=== PATIENT | female | born 2000 | race Caucasian/White ===

== ENCOUNTER 2023-04-11 10:54 | Emergency (ER) | payer MEDICAID, SELFPAY ==
--- NOTE | ~2023-04-11 | XR_ITS ---
EXAMINATION: XR CHEST CLINICAL INFORMATION: Cough. COMPARISON: None available. TECHNIQUE: 2 views of the chest were obtained. FINDINGS: No significant abnormality is noted involving the heart, lungs, mediastinum, bony thorax or soft tissues. XR/XR chest 2V IMPRESSION: No acute cardiopulmonary process.
--- NOTE | 2023-04-11 11:30 | ED_ITS ---
HPI - General Adult General Chief complaint: Upper Respiratory Symptoms Stated complaint: migraine/ cough Time Seen by Provider: 04/11/23 13:46 Source: patient Mode of arrival: ambulatory Limitations: no limitations History of Present Illness HPI narrative: Patient is a 22 year old assigned female at with a history of diabetes presenting to the emergency department today with a cough and congestion. Patient states that over the last 4 days she has felt generally unwell with a cough and congestion. Patient denies any dizziness, lightheadedness, abdominal pain, nausea, vomiting, fever, chills, blurry vision, double vision, loss of vision, chest pain, difficulty breathing, shortness of breath, back pain, night sweats, pain with urination, increased urinary frequency, increased urinary urgency, blood in her urine or stool, syncope or a near syncopal episode, recent trauma or falls, bowel incontinence, bladder incontinence, bowel retention, bladder retention, or any other complaints at this time. Onset (ago): day(s) (4) Severity: mild Severity scale (1-10): 2 Relieving factors: none Exacerbating factors: none Associated symptoms: cough Treatments prior to arrival: none Related Data Allergies Allergy/AdvReac Type Severity Reaction Status Date / Time acetaminophen [From Tylenol] Allergy Rash Verified 04/11/23 11:30 amoxicillin Allergy Anaphylaxis Verified 04/11/23 11:30 codeine Allergy Anaphylaxis Verified 04/11/23 11:30 Review of Systems Constitutional: Constitutional: Reports no additional constitutional complaints, Denies chills, Denies fever(s) and Denies night sweats Eyes: Eyes: Reports no additional eye complaints, Denies blurry vision, Denies change in vision, Denies diplopia, Denies eye discharge, Denies loss of vision and Denies eye pain ENT: Denies dizziness and Reports nasal congestion Cardiovascular: Cardiovascular: Reports no additional cardiovascular complaints, Denies chest pain, Denies lightheadedness, Denies Loss of Consciousness and Denies dyspnea Respiratory: Respiratory: Reports no additional respiratory complaints, Reports cough and Denies dyspnea Gastrointestinal: Gastrointestinal: Reports no additional gastrointestinal complaints, Denies abdominal pain, Denies melena, Denies hematochezia, Denies change in bowel habits and Denies change in stool character Genitourinary: Genitourinary: Denies hematuria, Denies urinary frequency, Denies dysuria, Denies urinary incontinence, Denies urinary hesitancy and Denies urinary urgency Musculoskeletal: Musculoskeletal: Reports no additional musculoskeletal complaints, Denies numbness and Denies tingling Neurologic: Denies dizziness, Denies loss of vision, Denies numbness and Denies tingling Psychiatric: Psychiatric: Reports no additional psychiatric complaints Endocrine: Endocrine: Reports no additional endocrine complaints Hematologic/Lymphatic: Hematologic/Lymphatic: Reports no additional hematologic/lymphatic complaints Allergic/Immunologic: Allergic/Immunologic: Reports no additional allergic/immunologic complaints PMFSH Past Medical History Attestation statement: The following information was validated with the patient. Source: old records reviewed and nursing notes reviewed Physical Exam ED Vital Signs: Vital Signs - 24 hr 04/11/23 11:31 Temperature 98.2 F Pulse Rate 108 H Respiratory Rate 18 Blood Pressure 168/115 H Pulse Oximetry 96 Oxygen Delivery Method Room Air BMI result Body Mass Index 46.0 Const General: cooperative, no acute distress, alert and awake Nutritional Appearance: well nourished Orientation/consciousness: patient oriented x3 Limitations: no limitations HENMT Head: Yes normal to inspection and Yes atraumatic Ears: hearing grossly normal bilaterally and external ears normal General nose exam: Normal external nose present, no nasal discharge noted and no epistaxis Face and sinus: Yes normal facial exam, No abrasion and No laceration Mouth: Normal oral and palatal mucosa present, no drooling and no muffled voice Eyes General: appearance normal, both eyes and all related structures Periorbital: periorbital findings normal Eyelids: Yes eyelids normal Conjunctivae: conjunctivae normal Pupils: Equal, round and reactive pupils present EOM: EOMs intact bilaterally Neck Neck: Yes normal visual inspection, Yes full ROM and Yes no lymphadenopathy Chest Chest palpation & inspection: normal inspection of the chest Resp Effort & Inspection: normal respiratory effort and able to speak in complete sentences GI Inspection: Yes normal to inspection Neuro General: patient oriented x3 and moves all extremities Cranial nerves: Yes Equal, round and reactive pupils present Cognition (Neuro): normal cognition Motor exam (neuro): 5/5 motor strength present throughout Sensory Exam: Normal double simultaneous stimulation for sensation Coordination: [id number] test normal Extrem General: Yes normal to inspection, Yes full ROM and Yes capillary refill normal Psych Appearance: grossly normal Mental Status: mental status grossly normal Affect: normal affect Attitude: cooperative Thought process: Normal thought process present Thought content: Normal thought content present Insight: Good insight present (Psych) Course Course Course Narrative: RME performed by Maribeth Kurtz PA-C. Patient is a 22 year old assigned female at presenting to the emergency department feeling generally unwell with congestion and migraines. Labs and swabs ordered. Patient placed back in the waiting room pending room availability and results. Medical Decision Making Medical Decision Making [facility] Narrative: Patient is a 22 year old assigned female at with a history of diabetes presenting to the emergency department today with congestion and a cough. Patient's physical exam was unremarkable. Patient's chest x-ray showed no acute process. Patient's COVID-19 swab was positive. Patient's strep and influenza swabs were negative. Patient eloped from the department before myself or any of the other emergency department providers could review or explain her physical exam findings, test results, and treatment plan or treatment options. Differential Diagnosis Differential Diagnoses: The differential diagnosis associated with the presentation includes COVID-19 URI Strep pharyngitis PNA Admission/Observation Consideration of admission/observation: Escalation of care including admission/observation considered Patient would have been admitted to the hospital had her work up had any findings where hospital admission was appropriate, her clinical presentation warranted hospital admission, and had she not eloped from the department. Lab Data [facility] Lab Attestation statement: I reviewed the patient's lab results. My interpretation of these studies and their corresponding values is that they are grossly normal with the exception of a positive COVID-19 test. Labs: Lab Results 04/11/23 04/11/23 04/11/23 Range/Units 12:00 12:00 12:00 COVID-19 (ARNOLDO) Positive A (Negative) COVID-19 Clin Com See Note Influenza Type A (BRENDON) Negative (Negative) Influenza Type B (BRENDON) Negative (Negative) Influenza A & B Note See Note S. pyogenes GrpA BRENDON Negative (Negative) Independent Interpretation I performed an independent interpretation of an: Plain X-Ray Interpretation: My interpretation is in agreement with the radiologist's impression of this imaging study. EXAMINATION: XR CHEST CLINICAL INFORMATION: Cough. COMPARISON: None available. TECHNIQUE: 2 views of the chest were obtained. FINDINGS: No significant abnormality is noted involving the heart, lungs, mediastinum, bony thorax or soft tissues. XR/XR chest 2V IMPRESSION: No acute cardiopulmonary process. Dictated By: Mark Lyon MD Signed By: Electronically signed by Mark Lyon MD 04/11/23 7103 Radiology Impression Discussion of test interpretation with radiology: I have reviewed the radiologist's reading. Chronic Conditions Patient?s care impacted by: Diabetes Discharge Plan Discharge Clinical Impression: COVID-19 Patient Disposition: Elopement Interventions: ED Discharge Assessment Last Done: 04/11/23 13:47 Print Language: Russian
[2023-04-11 11:31] VITALS: BP 168/115; PULSE 108; RESP 18; TEMP 36.8; O2SAT 96; BMI 46.0
[2023-04-11 12:15] LABS: IDNOW Serial# 08D9AD1C; Strep A Nucleic Acid Negative (Negative)
[2023-04-11 12:17] LABS: COVID-19 Test Positive (Negative); IDNOW Serial# 9DB6401D
[2023-04-11 12:21] LABS: IDNOW Serial# BCCEAD1C; Influenza A Negative (Negative); Influenza B2 Negative (Negative)
== END 2023-04-11 14:09 | disposition left against medical advice (07) ==
LOC: HO.ED 14:07
PROVIDERS: Physician Assistant Medical; Emergency Provider Emergency Medicine
DX: U07.1 COVID-19 (principal); G43.909 Migraine, unspecified, not intractable, without status migrainosus; R05.9 Cough, unspecified
CPT/HCPCS: 71046; 87502; 87635; 87651; 99282; 99283

== ENCOUNTER 2023-06-12 15:11 | Emergency (ER) | payer MEDICAID, SELFPAY ==
[2023-06-12 15:22] VITALS: BP 166/116; PULSE 107; RESP 18; TEMP 36.6; O2SAT 96; BMI 41.4
--- NOTE | 2023-06-12 15:23 | ED.ABDPAIN ---
HPI - Abdominal Pain General Chief Complaint: Abdominal Pain Stated Complaint: Abdominal pain Related Data Allergies Allergy/AdvReac Type Severity Reaction Status Date / Time amoxicillin Allergy Anaphylaxis Verified 06/12/23 15:22 codeine Allergy Anaphylaxis Verified 06/12/23 15:22 Penicillins Allergy Anaphylaxis Verified 06/12/23 15:22 [facility] Social History Social History Advance Directives: No Advance Directives Information Provided: Yes Physical Exam ED Vital Signs: BMI result Body Mass Index 41.4 Course Course Course Narrative: RME - 22 yo female with history of DM2 and history of recent vaginal yeast infection 2-3 weeks ago who presents to the ER for evaluation of intermittent RLQ pain for the last 3 days. Increased vaginal odor but no longer having discharge. Not sexually active. No N/V/D or fever at home. Increased urination due to glucose 300+ at home. Plan: labs, UA, pelvis U/S, pelvic exam Reevaluation(s) Reevaluation #1: patient eloped without completing treatment Medical Decision Making Lab Data 06/12/23 15:52 06/12/23 15:52 Labs: Lab Results 06/12/23 Range/Units 15:52 WBC 16.1 H (4.8-10.8) X10*3/uL RBC 5.28 (4.20-5.50) X10*6/uL Hgb 15.4 (12.0-16.0) g/dl Hct 45.2 (37.0-47.0) % MCV 85.6 (80.0-98.0) fL MCH 29.2 (27.0-33.0) pg MCHC 34.1 (31.0-35.0) g/dl RDW 12.5 (11.0-16.0) % Plt Count 271 (160-400) X10*3/uL MPV 9.4 (9.4-12.3) fL Immature Gran % (Auto) 0.6 H (0.0-0.4) % Neut % (Auto) 73.8 H (45-73) % Lymph % (Auto) 16.3 L (20-40) % [place] % (Auto) 6.7 (2-11) % Eos % (Auto) 2.1 (0-4) % Baso % (Auto) 0.5 (0-2) % Lymph # (Auto) 2.6 (1.2-4.9) X10*3/uL [place] # (Auto) 1.1 (0.1-1.2) X10*3/uL Eos # (Auto) 0.3 (0.0-0.4) X10*3/uL Baso # (Auto) 0.1 (0.0-0.2) X10*3/uL Abs Immat Gran (auto) 0.09 H (0.00-0.03) X10*3/uL Absolute Neuts (auto) 11.9 H (2.0-8.3) x10*3/uL Absolute Nucleated RBC 0.000 (0.0-0.012) X10*3/uL Nucleated RBC % (auto) 0.0 (0.0-0.2) /100WBC Sodium 140 (135-145) mmol/L Potassium 3.8 (3.3-5.1) mmol/L Chloride 108 (96-108) mmol/L Carbon Dioxide 20 L (22-29) mmol/L Anion Gap 16 (12-20) BUN 11 (9-16) mg/dL Creatinine 0.68 (0.5-1.4) mg/dL Estim Creat Clear Calc 129.2 Estimated GFR > 60 Random Glucose 218 H (60-115) mg/dL Calcium 8.9 (8.4-10.2) mg/dL Magnesium 1.9 (1.6-2.6) mg/dL Total Bilirubin 0.7 (0.0-1.0) mg/dL Direct Bilirubin 0.2 (0.0-0.5) mg/dL AST 19 (5-31) U/L ALT 20 (0-31) U/L Alkaline Phosphatase 72 (39-117) U/L Total Protein 7.2 (6.5-8.0) g/dL Albumin 3.7 (3.5-5.0) g/dL Urine Color Yellow Urine Appearance Clear Urine pH 6.0 (5.0-9.0) Ur Specific [place] 1.025 (1.005-1.025) Urine Protein Trace (Neg-Trace) mg/dL Urine Glucose (UA) >=1000 H (Negative) mg/dL Urine Ketones Trace (Negative) mg/dL Urine Blood Negative (Negative) Urine Nitrite Negative (Negative) Ur Leukocyte Esterase Negative (Negative) Urine RBC 0-2 (0-2) /HPF Urine WBC 0-5 (0-5) /HPF Ur Squamous Epith Cells 6-10 (0-2) /HPF Urine Bacteria None Seen (None Seen) Hyaline Casts 3-5 (0-2) /LPF Urine Test NEGATIVE (NEGATIVE) Discharge Plan Discharge Clinical Impression: Abdominal pain Patient Disposition: Left W/O Completing Treatment Discharge Date/Time: 06/12/23 17:28
[2023-06-12 16:27] LABS: Alanine Aminotransferase 20 U/L (0-31); Albumin Level 3.7 g/dL (3.5-5.0); Alkaline Phosphatase 72 U/L (39-117); Anion Gap 16 (12-20); Aspartate Amino Transferase 19 U/L (5-31); Bilirubin Direct 0.2 mg/dL (0.0-0.5); Bilirubin Total 0.7 mg/dL (0.0-1.0); Blood Urea Nitrogen 11 mg/dL (9-16); Calcium 8.9 mg/dL (8.4-10.2); Carbon Dioxide 20 mmol/L (22-29); Chloride 108 mmol/L (96-108); Creatinine Clr Calc Pharmacy 129.2; Estimated Glomerular Filt Rate > 60; Glucose Random 218 mg/dL (60-115); Magnesium 1.9 mg/dL (1.6-2.6); Potassium 3.8 mmol/L (3.3-5.1); Sodium 140 mmol/L (135-145); Total Protein 7.2 g/dL (6.5-8.0)
== END 2023-06-12 17:28 | disposition left against medical advice (07) ==
PROVIDERS: Physician Assistant; Emergency Provider Emergency Medicine Emergency Medical Services
DX: R10.31 Right lower quadrant pain (principal); E11.9 Type 2 diabetes mellitus without complications
CPT/HCPCS: 36415; 76856; 80048; 80076; 81001; 81003; 81025; 83735; 85025; 93975; 99282; 99284

== ENCOUNTER 2023-07-08 10:16 | Emergency (ER) | payer MEDICAID, SELFPAY ==
--- NOTE | ~2023-07-08 | XR_ITS ---
EXAMINATION: XR CHEST CLINICAL INFORMATION: Cough. COMPARISON: 04/11/2023 TECHNIQUE: 2 views of the chest were obtained. FINDINGS: The lungs are moderately expanded. No focal consolidation. No pleural effusion. Cardiac silhouette is unchanged. XR/XR chest 2V IMPRESSION: No acute abnormality.
[2023-07-08 10:25] VITALS: BP 176/119; PULSE 111; RESP 18; TEMP 36.8; O2SAT 98; BMI 43.7
[2023-07-08 11:02] LABS: IDNOW Serial# BCCEAD1C; Influenza A Negative (Negative); Influenza B2 Negative (Negative)
[2023-07-08 11:17] LABS: COVID-19 Test Negative (Negative); IDNOW Serial# 55D5AD1C
--- NOTE | 2023-07-08 11:19 | MHC.EDTECH ---
Pt came back for swabs and asked for blood sugar to be checked because she felt lightheaded. T/w checked and it was 185. SHOAIB [place] aware.
[2023-07-08 11:32] LABS: Glucose, Whole Blood 185 mg/dL (60-115)
[2023-07-08 11:41] LABS: IDNOW Serial# 08D9AD1C; Strep A Nucleic Acid Negative (Negative)
--- NOTE | 2023-07-08 12:10 | ED_ITS ---
HPI - General Adult General Chief complaint: General Medical Stated complaint: vomiting Time Seen by Provider: 07/08/23 12:10 Source: patient, RN notes reviewed and old records reviewed Mode of arrival: ambulatory Limitations: no limitations History of Present Illness HPI narrative: 22-year-old female with pmhx significant for T2DM presents to the ED today for evaluation of cough, fever, vomiting, and diarrhea x3 days. Last episode of vomiting was this morning. No hematemesis. Fever has been subjective. Cough has been constant, exacerbated with lying back, and without sputum production. States everyone in her home is sick with same symptoms. Denies TOURE, dizziness, neck pain, sore throat, sputum production, chest pain, shortness of breath, abdominal pain, dysuria, hematuria, vaginal discharge. Denies marijuana use. Denies chance of . Related Data Previous Rx's Medication Instructions Recorded benzonatate 100 mg capsule 100 mg PO TID PRN cough #20 caps 07/08/23 ondansetron 4 mg disintegrating 4 mg PO DAILY PRN nausea and 07/08/23 tablet vomiting 5 days #10 tabs Allergies Allergy/AdvReac Type Severity Reaction Status Date / Time acetaminophen Allergy Hives Verified 07/08/23 12:57 amoxicillin Allergy Anaphylaxis Verified 06/12/23 15:22 codeine Allergy Anaphylaxis Verified 06/12/23 15:22 Penicillins Allergy Anaphylaxis Verified 06/12/23 15:22 Review of Systems Review of Systems: Constitutional: No fever, chills, fatigue, night sweats, weight changes ENT/Mouth: No ear pain, hearing loss, nasal congestion, sinus pain, rhinorrhea, sore throat Eyes: No eye pain, swelling, redness, vision changes, discharge Cardio: No chest pain, palpitations, THOMSON, orthopnea, peripheral edema Pulm: No SOB, +cough, No sputum, wheezing, dyspnea, hemoptysis GI: +nausea, +vomiting, No hematemesis, abdominal pain, +diarrhea, No constipation, hematochezia, melena : No irregular bleeding, dysuria, frequency, urgency, hesitancy, hematuria, flank pain MSK: No back pain, neck pain, joint pain, myalgias Skin: No lesions, rashes Neuro: No weakness, numbness, paresthesias, LOC, dizziness, headache All other systems reviewed and are negative. [facility] Past Medical History Attestation statement: The following information was validated with the patient. Source: old records reviewed and nursing notes reviewed Social History Social History Advance Directives: No Advance Directives Information Provided: No Physical Exam ED Vital Signs: Vital Signs - 24 hr 07/08/23 14:41 Temperature 98.2 F Pulse Rate 87 Respiratory Rate 14 Blood Pressure 149/93 H Pulse Oximetry 100 Oxygen Delivery Method Room Air BMI result Body Mass Index 43.7 Vital signs initially notable for tachycardia and hypertension Const General: cooperative, no acute distress, alert and awake Orientation/consciousness: patient oriented x3 Limitations: no limitations HENMT Other: + posterior oropharynx without erythema or edema. No tonsillar exudates. Uvula midline. Controlling secretions and speaking in complete sentences. Head: Yes normal to inspection Ears: hearing grossly normal bilaterally, external ears normal, TM's normal bilaterally, EAC's normal and mastoids normal General nose exam: Normal external nose present Face and sinus: Yes sinuses nontender Eyes General: appearance normal, both eyes and all related structures Conjunctivae: conjunctivae normal Sclerae: sclerae normal Pupils: Equal, round and reactive pupils present Neck Neck: Yes normal visual inspection, Yes no lymphadenopathy and Yes no meningeal signs Resp Effort & Inspection: normal respiratory effort and able to speak in complete sentences Auscultation: clear to auscultation bilaterally and no wheezes Cardio Rate: regular rate Rhythm: regular rhythm Peripheral pulses: radial pulses present GI Other: Abdomen is soft, ND, nontender to palpation, no rebound tenderness or guarding. Normoactive BS throughout. Inspection: Yes normal to inspection General: Yes no CVA tenderness Back/Spine/Pelvis Back: no CVA tenderness Skin General skin exam: no rashes or lesions noted Neuro General: patient oriented x3, gait normal, moves all extremities and no meningeal signs Cranial nerves: Yes CN's II-XII intact bilaterally and Yes Equal, round and reactive pupils present Extrem General: Yes normal to inspection, Yes capillary refill normal and Yes no clubbing, cyanosis or edema Course Course Course Narrative: 1213-- serology negative for COVID, influenza, strep throat. POC glucose 185 > unlikely DKA. UA without infection or preg. 1443-- CXR negative for infection or pneumonia. Patient states her symptoms are somewhat improved with IV fluids and Zofran. Her vital signs are stable. She was initially hypertensive and tachycardic on arrival however this has normalized. She is tolerating crackers in the ED. No vomiting. I discussed unremarkable workup with patient. Her symptoms are consistent with an upper respiratory infection/ viral infection. I will send Zofran to her pharmacy to take as needed for nausea. I will also send Manjula Reynaga to her pharmacy for cough. Discussed strict return precautions. All questions answered at this time. Patient is agreeable disposition and stable for discharge. Medications Administered Discontinued Medications Generic Name Dose Route Start Last Admin Trade Name Freq PRN Reason Stop Dose Admin Sodium Chloride 1,000 mls @ 999 mls/hr 07/08/23 12:30 07/08/23 14:34 Ns IV 07/08/23 13:30 Infused .Q1H1M TOLU Infusion Ondansetron HCl 4 mg 07/08/23 12:20 07/08/23 13:00 Ondansetron Hcl 4 Mg/2 Ml Vial IVPUSH 07/08/23 12:21 4 mg ONCE ONE Administration Medical Decision Making Medical Decision Making [facility] Narrative: 22-year-old female pmhx significant for T2DM presents to the ED today with a complaint of cough, fever, vomiting, and diarrhea x3 days. Patient is nontoxic appearing, in NAD. Posterior oropharynx without erythema or edema. No tonsillar exudates. Uvula is midline. Controlling secretions. Speaking in complete sentences. Abd soft, NT/ND, no rebound or guarding. Clinical concern for URI, viral syndrome, pneumonia, gastroenteritis. Lower suspicion for strep throat, mono, DKA, appendicitis, cholecystitis. Serology obtained in triage. Plan for UA/ u preg and CXR. Differential Diagnosis Differential Diagnoses: The differential diagnosis associated with the presentation includes As above. Admission/Observation Not indicated. Lab Data [facility] Lab Attestation statement: I reviewed the patient's lab results. As above. Labs: Lab Results 07/08/23 07/08/23 07/08/23 Range/Units 10:30 11:13 11:16 POC Glucose 185 H (60-115) mg/dL Urine Color Urine Appearance Urine pH (5.0-9.0) Ur Specific [place] (1.005-1.025) Urine Protein (Neg-Trace) mg/dL Urine Glucose (UA) (Negative) mg/dL Urine Ketones (Negative) mg/dL Urine Blood (Negative) Urine Nitrite (Negative) Ur Leukocyte Esterase (Negative) Urine RBC (0-2) /HPF Urine WBC (0-5) /HPF Ur Squamous Epith Cells (0-2) /HPF Urine Bacteria (None Seen) Hyaline Casts (0-2) /LPF Urine Test (NEGATIVE) COVID-19 (ARNOLDO) Negative (Negative) COVID-19 Clin Com See Note Influenza Type A (BRENDON) Negative (Negative) Influenza Type B (BRENDON) Negative (Negative) Influenza A & B Note See Note S. pyogenes GrpA BRENDON Negative (Negative) 07/08/23 Range/Units 12:55 POC Glucose (60-115) mg/dL Urine Color Yellow Urine Appearance Cloudy Urine pH 6.0 (5.0-9.0) Ur Specific [place] >= 1.030 H (1.005-1.025) Urine Protein Negative (Neg-Trace) mg/dL Urine Glucose (UA) >=1000 H (Negative) mg/dL Urine Ketones Trace (Negative) mg/dL Urine Blood Negative (Negative) Urine Nitrite Negative (Negative) Ur Leukocyte Esterase Trace H (Negative) Urine RBC 0-2 (0-2) /HPF Urine WBC 6-10 H (0-5) /HPF Ur Squamous Epith Cells 11-20 (0-2) /HPF Urine Bacteria 1+ (None Seen) Hyaline Casts 0-2 (0-2) /LPF Urine Test NEGATIVE (NEGATIVE) COVID-19 (ARNOLDO) (Negative) COVID-19 Clin Com Influenza Type A (BRENDON) (Negative) Influenza Type B (BRENDON) (Negative) Influenza A & B Note S. pyogenes GrpA BRENDON (Negative) Independent Interpretation I performed an independent interpretation of an: Plain X-Ray Interpretation: CXR without infiltrate or consolidation, agree with radiologist's interpretation. Radiology Impression Discussion of test interpretation with radiology: I have reviewed the radiologist's reading. Radiologist Impression: EXAMINATION: XR CHEST CLINICAL INFORMATION: Cough. COMPARISON: 04/11/2023 TECHNIQUE: 2 views of the chest were obtained. FINDINGS: The lungs are moderately expanded. No focal consolidation. No pleural effusion. Cardiac silhouette is unchanged. XR/XR chest 2V IMPRESSION: No acute abnormality. External Record Review External record reviewed: Inpatient record Prescription Management I considered prescription management with: Pain Medication and Other (antiemetic) Chronic Conditions Patient?s care impacted by: Diabetes Critical Care Time Critical Care Time Critical Care Time: No Discharge Plan Discharge Clinical Impression: Upper respiratory infection Patient Disposition: Home, Self-Care Instructions: Upper Respiratory Infection (ED) Additional Instructions: You tested negative for COVID, flu, strep throat. Your urine was negative for infection and . Your chest x-ray did not show pneumonia or infection. You received a liter of IVF in the emergency department today. Your symptoms are consistent with an upper respiratory infection. You may take ibuprofen at home for body aches or fever. Zofran as an antiemetic that has been sent to pharmacy. Take this as needed for nausea/vomiting. Tessalon Perles have been sent to your pharmacy. Take this as needed for cough. Drink plenty of fluids. Follow-up with your primary care provider this week. Return to the emergency department with new or worsening symptoms. In case of emergency call 911 Prescriptions: New ondansetron 4 mg tablet,disintegrating 4 mg PO DAILY PRN (Reason: nausea and vomiting) 5 Days Qty: 10 0RF benzonatate 100 mg capsule 100 mg PO TID PRN (Reason: cough) Qty: 20 0RF Referrals: Physician,Unknown J [Primary Care Provider] - Stand Alone Forms: Work/School Release Interventions: ED Discharge Assessment Last Done: 07/08/23 15:17 Discharge Date/Time: 07/08/23 15:18
[2023-07-08] MEDS: 0.9 % Sodium Chloride 1,000 ML 999 ML IV (12:56)
[2023-07-08] MEDS: ondansetron HCL 4 MG/2 ML VIAL IVPUSH (13:00)
[2023-07-08 13:09] LABS: Appearance Urine Cloudy; Color Urine Yellow; Glucose Urine UA >=1000 mg/dL (Negative); Leukocyte Esterase Urine Trace (Negative); Nitrite Urine Negative (Negative); UMIC TRIGGER UACC YES; Urine Blood Negative (Negative); Urine Ketones Trace mg/dL (Negative); Urine Protein Negative (Neg-Trace)
[2023-07-08 13:12] LABS: UPreg QC Valid YES; Urine Pregnancy NEGATIVE (NEGATIVE)
[2023-07-08 13:24] LABS: Bacteria Urine 1+ (None Seen); Hyaline Casts Urine 0-2 /LPF (0-2); RBC Urine 0-2 /HPF (0-2); Specific Gravity - Urine >= 1.030 (1.005-1.025); UACC Culture Trigger YES
[2023-07-08 14:41] VITALS: BP 149/93; PULSE 87; RESP 14; TEMP 36.8; O2SAT 100
== END 2023-07-08 15:18 | disposition home or self-care (01) ==
PROVIDERS: Physician Assistant Medical; Emergency Provider Emergency Medicine
DX: J06.9 Acute upper respiratory infection, unspecified (principal); R11.2 Nausea with vomiting, unspecified; R05.9 Cough, unspecified; R50.9 Fever, unspecified; Z11.52 Encounter for screening for COVID-19; Z20.822 Contact with and (suspected) exposure to COVID-19; Z79.899 Other long term (current) drug therapy
CPT/HCPCS: 71046; 81001; 81003; 81025; 82947; 87086; 87502; 87635; 87651; 96361; 96374; 99284; J2405

== ENCOUNTER 2023-07-24 10:08 | Emergency (ER) | payer MEDICAID, SELFPAY ==
[2023-07-24 10:23] VITALS: BP 171/100; PULSE 103; RESP 18; TEMP 37; O2SAT 98; BMI 43.5
--- NOTE | 2023-07-24 11:05 | ED.GENADULT ---
HPI - General Adult General Chief complaint: General Medical Stated complaint: vaginal pain? Time Seen by Provider: 07/24/23 10:50 Source: patient Mode of arrival: ambulatory Limitations: no limitations History of Present Illness HPI narrative: 22 year old female with pmhx significant for recurrent yeast infections and T2DM presents to the ED today with complaint of vaginal discharge, itching, fishy odor and dysuria x4 weeks. She has been evaluated for this numerous times at urgent care with negative STD panels. Most recently she was prescribed 2 doses of fluconazole along with metronidazole without improvement of symptoms. Reports taking both doses of fluconazole however stopped taking metronidazole after a few days as it made her symptoms worse . States that her symptoms have resolved in the past with a longer course of fluconazole. Admits is feels like her typical yeast infection. Last had intercourse 8 months ago, endorses concern for possible STDs. States she was placed on insulin 3 months ago and since this time her sugars have been well controlled. Denies fever, chills, rashes, N/V, abdominal pain, flank pain, hematuria. Related Data Previous Rx's Medication Instructions Recorded benzonatate 100 mg capsule 100 mg PO TID PRN cough #20 caps 07/08/23 ondansetron 4 mg disintegrating 4 mg PO DAILY PRN nausea and 07/08/23 tablet vomiting 5 days #10 tabs fluconazole 150 mg tablet 150 mg PO DAILY 3 days #3 tabs 07/24/23 Allergies Allergy/AdvReac Type Severity Reaction Status Date / Time acetaminophen Allergy Hives Verified 07/24/23 10:22 amoxicillin Allergy Anaphylaxis Verified 07/24/23 10:22 codeine Allergy Anaphylaxis Verified 07/24/23 10:22 Penicillins Allergy Anaphylaxis Verified 07/24/23 10:22 Review of Systems Review of Systems: Constitutional: No fever, chills, fatigue, night sweats, weight changes ENT/Mouth: No ear pain, hearing loss, nasal congestion, sinus pain, rhinorrhea, sore throat Eyes: No eye pain, swelling, redness, vision changes, discharge Cardio: No chest pain, palpitations, THOMSON, orthopnea, peripheral edema Pulm: No SOB, cough, sputum, wheezing, dyspnea, hemoptysis GI: No nausea, vomiting, hematemesis, abdominal pain, diarrhea, constipation, hematochezia, melena : No irregular bleeding, +dysuria, No frequency, urgency, hesitancy, hematuria, flank pain, urinary flow changes, urinary incontinence or retention, +vaginal discharge, +fishy vaginal odor, +vaginal itching MSK: No back pain, neck pain, joint pain, myalgias Skin: No lesions, rashes Neuro: No weakness, numbness, paresthesias, LOC, dizziness, headache All other systems reviewed and are negative. [facility] Past Medical History Attestation statement: The following information was validated with the patient. Source: old records reviewed and nursing notes reviewed Social History Social History Advance Directives: No Advance Directives Information Provided: Yes Physical Exam ED Vital Signs: Vital Signs - 24 hr 07/24/23 10:23 Temperature 98.6 F Pulse Rate 103 H Respiratory Rate 18 Blood Pressure 171/100 H Pulse Oximetry 98 Oxygen Delivery Method Room Air BMI result Body Mass Index 43.5 Afebrile Const General: cooperative, comfortable, no acute distress, alert and awake Nutritional Appearance: overweight Orientation/consciousness: patient oriented x3 Limitations: no limitations HENMT Head: Yes normal to inspection Ears: hearing grossly normal bilaterally General nose exam: Normal external nose present Eyes General: appearance normal, both eyes and all related structures Conjunctivae: conjunctivae normal Sclerae: sclerae normal Pupils: Equal, round and reactive pupils present Neck Neck: Yes normal visual inspection and Yes no lymphadenopathy Resp Effort & Inspection: normal respiratory effort Auscultation: clear to auscultation bilaterally Cardio Rate: regular rate Rhythm: regular rhythm Peripheral pulses: radial pulses present GI Other: + Abdomen soft, nontender, not distended, no rebound tenderness or guarding, normoactive bowel sounds x4. Inspection: Yes normal to inspection Other: + no CVA tenderness bilaterally + pelvic exam deferred per patient Skin General skin exam: no rashes or lesions noted Neuro General: patient oriented x3 and moves all extremities Cranial nerves: Yes Equal, round and reactive pupils present Extrem General: Yes normal to inspection and Yes capillary refill normal Course Course Course Narrative: 1150-- Had a discussion with patient regarding pelvic exam as she does not feels of this is necessary because it feels like her typical yeast infection. I provided her the option of STD vaginal self swabs or urine test in she states that she would like both of these. Plan for STD testing and UA to rule out urinary tract infection. 1237-- urine is negative for infection and . Discussed results with patient. This is likely a yeast infection. I will send fluconazole to patient's pharmacy as this has worked for her in the past. Informed her that we will call her in the next couple of days if her STD testing returns positive. I will also provide her with a referral to an primary care doctor, an pulp mill team leader and a cone tender as she is new to the area and would like closer providers. Discussed strict return precautions. All questions answered at this time. Patient is agreeable disposition stable for discharge. Medical Decision Making Medical Decision Making [facility] Narrative: 22 year old female with pmhx significant for recurrent yeast infections and DM presents to the ED today with complaint of vaginal discharge, itching, fishy odor and dysuria x4 weeks. Afebrile. She is nontoxic appearing and in NAD. No rashes. RRR. Abdomen is soft, ND/NT, no rebound tenderness or guarding, normoactive bowel sounds x4. No CVAT bilaterally. Pelvic exam deferred per patient. Clinical concern for gonorrhea, chlamydia, BV, trichomonas, candidal infection, UTI, cystitis. Unlikely syphilis, pyelonephritis, TOA. Plan at this time is CT/NG vaginal swabs, CT NG urine, UA. Differential Diagnosis Differential Diagnoses: The differential diagnosis associated with the presentation includes As above. Admission/Observation Not indicated. Lab Data [facility] Lab Attestation statement: I reviewed the patient's lab results. As above. Labs: Lab Results 07/24/23 07/24/23 Range/Units 11:53 11:59 Urine Color Yellow Urine Appearance Clear Urine pH 6.5 (5.0-9.0) Ur Specific [place] >= 1.030 H (1.005-1.025) Urine Protein Negative (Neg-Trace) mg/dL Urine Glucose (UA) >=1000 H (Negative) mg/dL Urine Ketones Negative (Negative) mg/dL Urine Blood Negative (Negative) Urine Nitrite Negative (Negative) Ur Leukocyte Esterase Negative (Negative) Urine RBC 0-2 (0-2) /HPF Urine WBC 0-5 (0-5) /HPF Ur Squamous Epith Cells 0-2 (0-2) /HPF Urine Bacteria None Seen (None Seen) Hyaline Casts 0-2 (0-2) /LPF Urine Test NEGATIVE (NEGATIVE) Chlam trachomat DNA PCR NOT DETECTED (Not Detect.) N.gonorrhoeae DNA (PCR) NOT DETECTED (Not Detect.) External Record Review External record reviewed: Inpatient record Prescription Management I considered prescription management with: Antibiotic Chronic Conditions Patient?s care impacted by: Diabetes Critical Care Time Critical Care Time Critical Care Time: No Discharge Plan Discharge Clinical Impression: Vaginal odor Patient Disposition: Home, Self-Care Instructions: Vaginal Discharge (ED) Additional Instructions: You were tested for sexually transmitted infections today. You will be called within a couple of days if results return positive. Your urine was negative for infection and , Fluconazole has been sent to your pharmacy for suspected yeast infection. Take this once daily for the next 3 days. Do not skip any doses or stop taking the medication early. You have also been provided with a referral to a new primary care doctor, pulp mill team leader and cone tender. You may call them to establish care. They will not call you. If symptoms persist or worsen please return to the emergency department. Case of an emergency call 911. Prescriptions: New fluconazole 150 mg tablet 150 mg PO DAILY 3 Days Qty: 3 0RF Rx Instructions: administer on day 1 of therapy No Action ondansetron 4 mg tablet,disintegrating 4 mg PO DAILY PRN (Reason: nausea and vomiting) 5 Days Qty: 10 0RF benzonatate 100 mg capsule 100 mg PO TID PRN (Reason: cough) Qty: 20 0RF Referrals: [facility] [Provider Group] [facility] [Provider Group] [facility] [Provider Group] [facility] [Provider Group] Interventions: ED Discharge Assessment Last Done: 07/24/23 12:52 Discharge Date/Time: 07/24/23 12:52
[2023-07-24 12:06] LABS: Appearance Urine Clear; Color Urine Yellow; Glucose Urine UA >=1000 mg/dL (Negative); Leukocyte Esterase Urine Negative (Negative); Nitrite Urine Negative (Negative); PH 6.5 (5.0-9.0); Specific Gravity - Urine >= 1.030 (1.005-1.025); UMIC TRIGGER UACC YES; Urine Blood Negative (Negative); Urine Ketones Negative (Negative); Urine Protein Negative (Neg-Trace)
[2023-07-24 12:19] LABS: UPreg QC Valid YES; Urine Pregnancy NEGATIVE (NEGATIVE)
[2023-07-24 12:21] LABS: Bacteria Urine None Seen (None Seen); Hyaline Casts Urine 0-2 /LPF (0-2); RBC Urine 0-2 /HPF (0-2); Squamous Epithelial Cell Urine 0-2 /HPF (0-2); WBC Urine 0-5 /HPF (0-5)
[2023-07-24 14:10] LABS: CT PCR NOT DETECTED (Not Detect.); NG PCR NOT DETECTED (Not Detect.)
[2023-07-26 09:25] LABS: BV Int Neg Control Negative (Negative); BV Int Pos Control Positive (Positive)
== END 2023-07-24 12:52 | disposition home or self-care (01) ==
PROVIDERS: Physician Assistant Medical; Emergency Provider Emergency Medicine
DX: N89.8 Other specified noninflammatory disorders of vagina (principal); E11.9 Type 2 diabetes mellitus without complications; Z20.2 Contact with and (suspected) exposure to infections with a predominantly sexual mode of transmission
CPT/HCPCS: 0353U; 36415; 81001; 81003; 81025; 81513; 87480; 87510; 87660; 99282; 99283

== ENCOUNTER 2023-09-01 06:27 | Emergency (ER) | payer MEDICAID, SELFPAY ==
--- NOTE | 2023-09-01 | ECG_ITS ---
Test Reason : tachycardia Blood Pressure : / mmHG Vent. Rate : 109 BPM Atrial Rate : 109 BPM P-R Int : 122 ms QRS Dur : 076 ms QT Int : 358 ms P-R-T Axes : 021 082 013 degrees QTc Int : 482 ms Sinus tachycardia mild QT prolongation Borderline ECG No previous ECGs available Referred By: Generic ED Physician Electronically Signed By:DAV PALOMARES
[2023-09-01 07:05] VITALS: BP 186/132; PULSE 115; RESP 18; TEMP 36.3; O2SAT 98; BMI 44.4
[2023-09-01 07:31] LABS: MANUAL DIFF FLAG NO
[2023-09-01 07:33] LABS: Basophils Absolute Auto 0.1 X10*3/uL (0.0-0.2); Basophils Percent Auto 0.4 % (0-2); Eosinophils Absolute Auto 0.4 X10*3/uL (0.0-0.4); Eosinophils Percent Auto 1.7 % (0-4); Hematocrit 45.1 % (37.0-47.0); Hemoglobin 15.6 g/dl (12.0-16.0); Imm Gran Abs Auto 0.11 X10*3/uL (0.00-0.03); Imm Gran Pct Auto 0.5 % (0.0-0.4); Lymphocytes Absolute Auto 2.2 X10*3/uL (1.2-4.9); Mean Corpuscular HGB Conc 34.6 g/dl (31.0-35.0); Mean Corpuscular Hemoglobin 29.4 pg (27.0-33.0); Mean Corpuscular Volume 85.1 fL (80.0-98.0); Mean Platelet Volume 9.5 fL (9.4-12.3); Monocytes Absolute Auto 1.5 X10*3/uL (0.1-1.2); Monocytes Percent Auto 6.7 % (2-11); Neutrophils Absolute Auto 17.6 x10*3/uL (2.0-8.3); Neutrophils Percent Auto 80.7 % (45-73); Platelet Count 268 X10*3/uL (160-400); Red Cell Distribution Width 12.7 % (11.0-16.0); White Blood Count 21.9 X10*3/uL (4.8-10.8)
[2023-09-01 07:46] LABS: COVID-19 Test Negative (Negative); IDNOW Serial# 6674DD1D
[2023-09-01 07:47] LABS: Anion Gap 15 (12-20); Blood Urea Nitrogen 10 mg/dL (9-16); Calcium 8.8 mg/dL (8.4-10.2); Carbon Dioxide 21 mmol/L (22-29); Chloride 103 mmol/L (96-108); Creatinine Clr Calc Pharmacy 125.6; Estimated Glomerular Filt Rate > 60; Glucose Random 352 mg/dL (60-115); Potassium 3.7 mmol/L (3.3-5.1); Sodium 135 mmol/L (135-145)
[2023-09-01 08:15] VITALS: O2SAT 94
[2023-09-01 08:20] VITALS: BP 142/103; PULSE 110; RESP 20; O2SAT 97
[2023-09-01 08:32] LABS: Appearance Urine Clear; Color Urine Yellow; Glucose Urine UA >=1000 mg/dL (Negative); Leukocyte Esterase Urine Trace (Negative); Nitrite Urine Negative (Negative); PH 5.5 (5.0-9.0); Specific Gravity - Urine >= 1.030 (1.005-1.025); UMIC TRIGGER UACC YES; Urine Blood Negative (Negative); Urine Ketones Negative (Negative); Urine Protein Negative (Neg-Trace)
[2023-09-01 08:33] LABS: UPreg QC Valid YES; Urine Pregnancy NEGATIVE (NEGATIVE)
--- NOTE | 2023-09-01 08:33 | ED_ITS ---
HPI - URI/Sore Throat General Chief Complaint: Upper Respiratory Symptoms Stated Complaint: Upper Respiratory, possibly COVID + Time Seen by Provider: 09/01/23 06:50 Source: patient Mode of arrival: ambulatory Limitations: no limitations History of Present Illness HPI Narrative: 22-year-old female history of diabetes mellitus, anxiety who presents emergency department for evaluation of cough productive of thick phlegm with occasional blood, chest pain, shortness of breath, dyspnea on exertion, fatigue, nausea, vomiting, diarrhea, myalgias and arthralgias. Patient states she has been sick for 1 week. She is concerned that she may have COVID since she has been around several people at a tested COVID positive. Patient states she does take a sliding scale of Lantus as well as a sliding scale of Humalog. She also takes metformin for diabetes. She states that her sugars have been high over the past week. Patient states she does have significant anxiety and often when she comes the hospital, her blood pressures is very high but when she checked her blood pressure at home, it is normal. She does not take medications for blood pressure. Related Data Previous Rx's Medication Instructions Recorded benzonatate 100 mg capsule 100 mg PO TID PRN cough #20 caps 07/08/23 ondansetron 4 mg disintegrating 4 mg PO DAILY PRN nausea and 07/08/23 tablet vomiting 5 days #10 tabs fluconazole 150 mg tablet 150 mg PO DAILY 3 days #3 tabs 07/24/23 ondansetron 4 mg disintegrating 4 mg PO Q6-8H PRN nausea and 09/01/23 tablet vomiting #14 tabs Allergies Allergy/AdvReac Type Severity Reaction Status Date / Time acetaminophen Allergy Hives Verified 09/01/23 07:05 amoxicillin Allergy Anaphylaxis Verified 09/01/23 07:05 codeine Allergy Anaphylaxis Verified 09/01/23 07:05 Penicillins Allergy Anaphylaxis Verified 09/01/23 07:05 Review of Systems 2 Review of Systems: Yes all other systems are reviewed and are negative [facility] Past Medical History [facility] Narrative: Social history: She denies tobacco, alcohol and drug use. Social History Social History Alcohol intake: never Smoked in Last 30 Days: No Use of substances other than those prescribed or required for medical reasons: Yes Substance Use Type: Marijuana Advance Directives: No Advance Directives Information Provided: No Physical Exam 2 Vital Signs: Vital Signs: Last Vital Signs Temp 97.4 F 09/01/23 07:05 Pulse 97 09/01/23 10:00 Resp 16 09/01/23 10:00 BP 142/103 H 09/01/23 08:20 Pulse Ox 97 09/01/23 08:20 O2 Del Method Room Air 09/01/23 08:15 BMI result Body Mass Index 44.4 Vital signs did reveal elevated blood pressures as high as 186/132 while she was in the waiting room but this improved to 140 2/103 while she was in the department. Patient's heart rate was elevated 115. Vital signs were otherwise unremarkable Exam: General: Awake, alert in no distress Head: Normocephalic, atraumatic EENT: PERRL, Lids normal, sclera normal, conjunctiva normal, nose normal , ears normal, throat without erythema or exudates Neck: Supple, no adenopathy, no trachea midline or C-spine tenderness Lung: breath sounds symmetric, no wheezing, rales or rhonchi Chest: symmetric movement, nontender Heart: regular rate and rhythm, normal S1, S2 no murmurs or rubs Abdomen: soft, non-tender, nondistended, normal bowel sounds Back: no vertebral tenderness, no CVAT Extremities: no deformities, moves all extremities symmetrically Skin: no rashes, no lesion, normal color and warmth Neuro: Awake, alert, oriented, normal speech, cranial nerves intact, moves all extremities symmetrically Psych: Pleasant, cooperative Medications Administered Discontinued Medications Generic Name Dose Route Start Last Admin Trade Name Haley PRN Reason Stop Dose Admin Sodium Chloride 1,000 mls @ 999 mls/hr 09/01/23 08:34 09/01/23 10:11 Ns IV 09/01/23 09:34 Infused .Q1H1M STA Infusion Insulin Human Regular 5 unit 09/01/23 08:34 09/01/23 08:40 Insulin Regular, Human 100 Unit/Ml 3 Ml Vial IVPUSH 09/01/23 08:35 5 unit ONCE ONE Administration Ketorolac Tromethamine 15 mg 09/01/23 08:34 09/01/23 08:44 Ketorolac Tromethamine 15 Mg/Ml Vial IVPUSH 09/01/23 08:35 15 mg ONCE STA Administration Ondansetron HCl 4 mg 09/01/23 08:34 09/01/23 08:44 Ondansetron Hcl 4 Mg/2 Ml Vial IVPUSH 09/01/23 08:35 4 mg ONCE ONE Administration Medical Decision Making Medical Decision Making [facility] Narrative: 22-year-old female history of diabetes mellitus, anxiety who presents emergency department for evaluation of cough productive of thick phlegm with occasional blood, chest pain, shortness of breath, dyspnea on exertion, fatigue, nausea, vomiting, diarrhea, myalgias and arthralgias. Vital signs did reveal elevated blood pressure but the patient states she has high blood pressure secondary to anxiety that she takes blood pressure at home was normal. Patient did have an elevated heart rate as well. Exam is otherwise unremarkable pain Following evaluation was ordered: CBC, BMP, liver panel, lipase, influenza, COVID, rapid strep, urinalysis, urine test Patient was treated with normal saline IV x1 L, regular insulin 5 units IV, Toradol 50 mg IV and Zofran 4 mg IV. 1122: My interpretation patient's laboratory evaluation as follows: Elevated WBC 21,900, elevated glucose 352 urine test was negative. Urinalysis was positive for leukocyte esterase but microscopic revealed 6-10 WBCs with no bacteria suggestive this is not a urinary tract infection is the cause of her symptoms. COVID-19 was negative. Rapid strep was negative. Influenza was negative. Patient is feeling better after the above treatment. Patient was prescribed Zofran ODT. She was given printed and verbal instructions discharged home. Differential Diagnosis Differential Diagnoses: The differential diagnosis associated with the presentation includes Differential diagnosis includes was not limited to viral syndrome, electrolyte abnormalities, anemia, urinary tract infection Admission/Observation Consideration of admission/observation: Escalation of care including admission/observation considered Lab Data [facility] Lab Attestation statement: I reviewed the patient's lab results. 09/01/23 07:27 09/01/23 07:27 Labs: Lab Results 09/01/23 09/01/23 09/01/23 Range/Units 07:27 08:19 08:47 WBC 21.9 H (4.8-10.8) X10*3/uL RBC 5.30 (4.20-5.50) X10*6/uL Hgb 15.6 (12.0-16.0) g/dl Hct 45.1 (37.0-47.0) % MCV 85.1 (80.0-98.0) fL MCH 29.4 (27.0-33.0) pg MCHC 34.6 (31.0-35.0) g/dl RDW 12.7 (11.0-16.0) % Plt Count 268 (160-400) X10*3/uL MPV 9.5 (9.4-12.3) fL Immature Gran % (Auto) 0.5 H (0.0-0.4) % Neut % (Auto) 80.7 H (45-73) % Lymph % (Auto) 10.0 L (20-40) % [place] % (Auto) 6.7 (2-11) % Eos % (Auto) 1.7 (0-4) % Baso % (Auto) 0.4 (0-2) % Lymph # (Auto) 2.2 (1.2-4.9) X10*3/uL [place] # (Auto) 1.5 H (0.1-1.2) X10*3/uL Eos # (Auto) 0.4 (0.0-0.4) X10*3/uL Baso # (Auto) 0.1 (0.0-0.2) X10*3/uL Abs Immat Gran (auto) 0.11 H (0.00-0.03) X10*3/uL Absolute Neuts (auto) 17.6 H (2.0-8.3) x10*3/uL Absolute Nucleated RBC 0.000 (0.0-0.012) X10*3/uL Nucleated RBC % (auto) 0.0 (0.0-0.2) /100WBC Sodium 135 (135-145) mmol/L Potassium 3.7 (3.3-5.1) mmol/L Chloride 103 (96-108) mmol/L Carbon Dioxide 21 L (22-29) mmol/L Anion Gap 15 (12-20) BUN 10 (9-16) mg/dL Creatinine 0.73 (0.5-1.4) mg/dL Estim Creat Clear Calc 125.6 Estimated GFR > 60 POC Glucose (60-115) mg/dL Random Glucose 352 H* (60-115) mg/dL Calcium 8.8 (8.4-10.2) mg/dL Total Bilirubin 1.2 H (0.0-1.0) mg/dL Direct Bilirubin 0.3 (0.0-0.5) mg/dL AST 13 (5-31) U/L ALT 16 (0-31) U/L Alkaline Phosphatase 80 (39-117) U/L Total Protein 7.7 (6.5-8.0) g/dL Albumin 3.9 (3.5-5.0) g/dL Lipase 18 (8-78) U/L Urine Color Yellow Urine Appearance Clear Urine pH 5.5 (5.0-9.0) Ur Specific [place] >= 1.030 H (1.005-1.025) Urine Protein Negative (Neg-Trace) mg/dL Urine Glucose (UA) >=1000 H (Negative) mg/dL Urine Ketones Negative (Negative) mg/dL Urine Blood Negative (Negative) Urine Nitrite Negative (Negative) Ur Leukocyte Esterase Trace H (Negative) Urine RBC 0-2 (0-2) /HPF Urine WBC 6-10 H (0-5) /HPF Ur Squamous Epith Cells 3-5 (0-2) /HPF Urine Bacteria None Seen (None Seen) Hyaline Casts 0-2 (0-2) /LPF Urine Test NEGATIVE (NEGATIVE) COVID-19 (ARNOLDO) Negative (Negative) COVID-19 Clin Com See Note Influenza Type A (BRENDON) Negative (Negative) Influenza Type B (BRENDON) Negative (Negative) Influenza A & B Note See Note S. pyogenes GrpA BRENDON Negative (Negative) 09/01/23 09/01/23 Range/Units 09:12 10:00 WBC (4.8-10.8) X10*3/uL RBC (4.20-5.50) X10*6/uL Hgb (12.0-16.0) g/dl Hct (37.0-47.0) % MCV (80.0-98.0) fL MCH (27.0-33.0) pg MCHC (31.0-35.0) g/dl RDW (11.0-16.0) % Plt Count (160-400) X10*3/uL MPV (9.4-12.3) fL Immature Gran % (Auto) (0.0-0.4) % Neut % (Auto) (45-73) % Lymph % (Auto) (20-40) % [place] % (Auto) (2-11) % Eos % (Auto) (0-4) % Baso % (Auto) (0-2) % Lymph # (Auto) (1.2-4.9) X10*3/uL [place] # (Auto) (0.1-1.2) X10*3/uL Eos # (Auto) (0.0-0.4) X10*3/uL Baso # (Auto) (0.0-0.2) X10*3/uL Abs Immat Gran (auto) (0.00-0.03) X10*3/uL Absolute Neuts (auto) (2.0-8.3) x10*3/uL Absolute Nucleated RBC (0.0-0.012) X10*3/uL Nucleated RBC % (auto) (0.0-0.2) /100WBC Sodium (135-145) mmol/L Potassium (3.3-5.1) mmol/L Chloride (96-108) mmol/L Carbon Dioxide (22-29) mmol/L Anion Gap (12-20) BUN (9-16) mg/dL Creatinine (0.5-1.4) mg/dL Estim Creat Clear Calc Estimated GFR POC Glucose 247 H 247 H (60-115) mg/dL Random Glucose (60-115) mg/dL Calcium (8.4-10.2) mg/dL Total Bilirubin (0.0-1.0) mg/dL Direct Bilirubin (0.0-0.5) mg/dL AST (5-31) U/L ALT (0-31) U/L Alkaline Phosphatase (39-117) U/L Total Protein (6.5-8.0) g/dL Albumin (3.5-5.0) g/dL Lipase (8-78) U/L Urine Color Urine Appearance Urine pH (5.0-9.0) Ur Specific [place] (1.005-1.025) Urine Protein (Neg-Trace) mg/dL Urine Glucose (UA) (Negative) mg/dL Urine Ketones (Negative) mg/dL Urine Blood (Negative) Urine Nitrite (Negative) Ur Leukocyte Esterase (Negative) Urine RBC (0-2) /HPF Urine WBC (0-5) /HPF Ur Squamous Epith Cells (0-2) /HPF Urine Bacteria (None Seen) Hyaline Casts (0-2) /LPF Urine Test (NEGATIVE) COVID-19 (ARNOLDO) (Negative) COVID-19 Clin Com Influenza Type A (BRENDON) (Negative) Influenza Type B (BRENDON) (Negative) Influenza A & B Note S. pyogenes GrpA BRENDON (Negative) Independent Interpretation I performed an independent interpretation of an: Plain X-Ray Interpretation: My interpretation patient's chest x-ray is as follows: No acute disease Radiology Impression Discussion of test interpretation with radiology: I have reviewed the radiologist's reading. Radiologist Impression: XR chest 2V IMPRESSION: No acute abnormality. Dictated By: Chris Casey MD Discharge Plan Discharge Clinical Impression: Viral syndrome, Vomiting, Acute hyperglycemia Patient Disposition: Home, Self-Care Instructions: Acute Nausea and Vomiting (ED), Viral Syndrome (ED) Additional Instructions: Continue taking medications as prescribed by your providers. Take Zofran ODT 4 mg pills, 1 pill dissolved in your mouth every 8 hours as needed for nausea and vomiting. Follow-up with your doctor in 2 days. Please return to the emergency department if your symptoms get worse or if you develop any symptoms that are concerning to you. Prescriptions: New ondansetron 4 mg tablet,disintegrating 4 mg PO Q6-8H PRN (Reason: nausea and vomiting) Qty: 14 0RF No Action fluconazole 150 mg tablet 150 mg PO DAILY 3 Days Qty: 3 0RF Rx Instructions: administer on day 1 of therapy ondansetron 4 mg tablet,disintegrating 4 mg PO DAILY PRN (Reason: nausea and vomiting) 5 Days Qty: 10 0RF benzonatate 100 mg capsule 100 mg PO TID PRN (Reason: cough) Qty: 20 0RF
[2023-09-01] MEDS: 0.9 % Sodium Chloride 1,000 ML 999 ML IV (08:36)
[2023-09-01 08:37] LABS: Bacteria Urine None Seen (None Seen); Hyaline Casts Urine 0-2 /LPF (0-2); RBC Urine 0-2 /HPF (0-2); UACC Culture Trigger YES
[2023-09-01 08:40] LABS: IDNOW Serial# 08D9AD1C; Strep A Nucleic Acid Negative (Negative)
[2023-09-01] MEDS: Insulin Regular, Human 100 UNIT/ML 3 ML VIAL IVPUSH (08:40)
[2023-09-01] MEDS: ondansetron HCL 4 MG/2 ML VIAL IVPUSH (08:44)
[2023-09-01] MEDS: Ketorolac Tromethamine 15 MG/ML VIAL IVPUSH (08:44)
[2023-09-01 08:54] LABS: Alanine Aminotransferase 16 U/L (0-31); Albumin Level 3.9 g/dL (3.5-5.0); Alkaline Phosphatase 80 U/L (39-117); Aspartate Amino Transferase 13 U/L (5-31); Bilirubin Direct 0.3 mg/dL (0.0-0.5); Bilirubin Total 1.2 mg/dL (0.0-1.0); Lipase 18 U/L (8-78); Total Protein 7.7 g/dL (6.5-8.0)
[2023-09-01 09:09] LABS: IDNOW Serial# 08D9AD1C; Influenza A Negative (Negative); Influenza B2 Negative (Negative)
--- NOTE | 2023-09-01 09:14 | MHC.EDTECH ---
POC 247 RN aware
[2023-09-01 09:17] LABS: Glucose, Whole Blood 247 mg/dL (60-115)
[2023-09-01 10:00] VITALS: PULSE 97; RESP 16
--- NOTE | 2023-09-01 10:02 | MHC.EDTECH ---
repeat POC 247
[2023-09-01 10:03] LABS: Glucose, Whole Blood 247 mg/dL (60-115)
== END 2023-09-01 11:49 | disposition home or self-care (01) ==
PROVIDERS: Emergency Provider Emergency Medicine Emergency Medical Services
DX: B34.9 Viral infection, unspecified (principal); E11.65 Type 2 diabetes mellitus with hyperglycemia; R11.10 Vomiting, unspecified; Z79.4 Long term (current) use of insulin; Z11.52 Encounter for screening for COVID-19
CPT/HCPCS: 36415; 80048; 80076; 81001; 81025; 82947; 83690; 85025; 87086; 87502; 87635; 87651; 93005; 96361; 96374; 96375; 99284; 99285; J1885; J2405

== ENCOUNTER → 2023-09-01 07:18 | Outpatient (BNV) | payer MEDICAID, SELFPAY | PROVIDERS: Emergency Provider Emergency Medicine Emergency Medical Services; Visit Provider Internal Medicine | DX: R00.0 Tachycardia, unspecified (principal) | CPT/HCPCS: 93010 ==

== ENCOUNTER 2024-03-08 15:21 | Emergency (ER) | payer OTHER, SELFPAY ==
--- NOTE | ~2024-03-08 | XR_ITS ---
EXAMINATION: XR KNEE, LEFT CLINICAL INFORMATION: Left knee pain COMPARISON: None available. TECHNIQUE: Four views of the left knee. FINDINGS: No fracture, dislocation or destructive process or joint effusion. XR/XR knee LT 3V IMPRESSION: Negative study.
[2024-03-08 15:34] VITALS: BP 163/118; PULSE 112; RESP 18; TEMP 35.6; O2SAT 99; BMI 42.7
--- NOTE | 2024-03-08 15:35 | ECG_ITS ---
Test Reason : DIZZINESS Blood Pressure : / mmHG Vent. Rate : 092 BPM Atrial Rate : 092 BPM P-R Int : 124 ms QRS Dur : 078 ms QT Int : 356 ms P-R-T Axes : 027 047 021 degrees QTc Int : 440 ms Normal sinus rhythm with sinus arrhythmia Normal ECG When compared with ECG of 01-SEP-2023 07:18, No significant change was found Referred By: Domenica Rojas Electronically Signed By:DAV PALOMARES
--- NOTE | 2024-03-08 15:35 | ED_ITS ---
HPI - General Adult General Chief complaint: Fall Stated complaint: fell down stairs, hurt knee Time Seen by Provider: 03/08/24 16:49 Source: patient and RN notes reviewed Mode of arrival: ambulatory Limitations: no limitations History of Present Illness ED Provider: Gena Serna PA-C HPI narrative: This is a 23-year-old female, with a history of diabetes, who presents emergency department after fall which occurred earlier this afternoon. Patient states that she was walking down the stairs and suddenly became dizzy and fell forward striking her bilateral knees and hands. She states that she struck the right side of her head however denies loss of consciousness. She states that she did not hit her head hard. She denies any nausea or vomiting. She reports that over the last 4 days she has had intermittent dizziness. She states that she has had diarrhea every time she eats. She states that she has had eaten out recently. Denies bloody or black stool. She denies any fevers, chills, chest pain, shortness of breath, abdominal pain, nausea, vomiting or diarrhea. No other complaints or concerns at this time. MD complaint: Bilateral knee pain, dizziness Onset (ago): day(s) Location: lower extremity Radiation: non-radiation Severity: moderate Quality: aching Pain Consistency: constant Relieving factors: none Exacerbating factors: none Associated symptoms: denies other symptoms Treatments prior to arrival: none Related Data Previous Rx's ?Medication ?Instructions ?Recorded benzonatate 100 mg capsule 100 mg PO TID PRN cough #20 caps 07/08/23 ondansetron 4 mg disintegrating 4 mg PO DAILY PRN nausea and 07/08/23 tablet vomiting 5 days #10 tabs fluconazole 150 mg tablet 150 mg PO DAILY 3 days #3 tabs 07/24/23 ondansetron 4 mg disintegrating 4 mg PO Q6-8H PRN nausea and 09/01/23 tablet vomiting #14 tabs Allergies Allergy/AdvReac Type Severity Reaction Status Date / Time acetaminophen Allergy Hives Verified 03/08/24 15:36 amoxicillin Allergy Anaphylaxis Verified 03/08/24 15:36 codeine Allergy Anaphylaxis Verified 03/08/24 15:36 Penicillins Allergy Anaphylaxis Verified 03/08/24 15:36 Review of Systems 2 Review of Systems: Yes all other systems are reviewed and are negative Constitutional: Constitutional: Reports as per [facility] [place] Social History Social History Alcohol intake: never Substance Use Type: Marijuana Advance Directives: No Advance Directives Information Provided: No Physical Exam ED Vital Signs: Vital Signs - 24 hr 03/08/24 15:34 03/08/24 18:07 03/08/24 18:08 Temperature 96.0 F L Pulse Rate 112 H 85 87 Respiratory Rate 18 Blood Pressure 163/118 H 136/92 H 148/105 H Pulse Oximetry 99 Oxygen Delivery Method Room Air 03/08/24 18:40 03/08/24 19:44 03/08/24 19:49 Temperature 97.9 F 98.3 F 98.3 F Pulse Rate 86 91 91 Respiratory Rate 18 14 14 Blood Pressure 136/88 133/92 H 133/92 H Pulse Oximetry 98 98 98 Oxygen Delivery Method Room Air Room Air Room Air BMI result Body Mass Index 42.7 Const General: cooperative, comfortable and no acute distress Orientation/consciousness: patient oriented x3 Limitations: no limitations HENMT Head: Yes normal to inspection, Yes normocephalic and Yes atraumatic Ears: hearing grossly normal bilaterally General nose exam: Normal external nose present Face and sinus: Yes normal facial exam Mouth: Normal oral and palatal mucosa present, oropharynx normal and moist mucous membranes Throat: Yes posterior oropharynx normal Eyes General: appearance normal, both eyes and all related structures Eyelids: Yes eyelids normal Conjunctivae: conjunctivae normal Sclerae: sclerae normal Pupils: Equal, round and reactive pupils present EOM: EOMs intact bilaterally Neck Neck: Yes normal visual inspection, Yes full ROM and Yes no lymphadenopathy Lymphatic: no lymphadenopathy noted Chest Chest palpation & inspection: normal inspection of the chest Resp Effort & Inspection: normal respiratory effort and able to speak in complete sentences Auscultation: clear to auscultation bilaterally, no crackles, no rales, no rhonchi and no wheezes Cardio Rate: regular rate Rhythm: regular rhythm Heart sounds: S1 normal heart sound present and S2 normal heart sound present GI Inspection: Yes normal to inspection Skin General skin exam: no rashes or lesions noted Trauma: no lacerations or abrasions Wounds: no wounds Neuro General: patient oriented x3 and moves all extremities Cranial nerves: Yes CN's II-XII intact bilaterally and Yes Equal, round and reactive pupils present Cognition (Neuro): normal cognition Gait exam (Neuro): Normal gait present Motor exam (neuro): 5/5 motor strength present throughout Coordination: [id number] test normal and [id number] test normal Extrem Other: Bilateral knees with superficial abrasions noted. Mild hematoma noted on the left knee, tenderness palpation, able to flex and extend at both knees without difficulty. General: Yes normal to inspection Right upper extremity: normal to inspection Left upper extremity: normal to inspection Right lower extremity: normal to inspection Left lower extremity: normal to inspection Course Course Course Narrative: This is an RME done by YAJAIRA Rojas: Additional HPI, ROS, PE not included below will be deferred to primary provider. 23 year old female presents w/ left knee pain sp slip and fall down the stairs reports she felt dizzy slipped and landed on her knees. No head strike or LOC. Appearance: Alert.? Oriented X3.? No acute cardiopulmonary distress distress.? Head: Normocephalic, atraumatic, no step-offs or deformities Neck: Normal inspection.? Neck supple.? CVS: Pulses normal.? Respiratory: No respiratory distress.? Abdomen: Soft and nontender.? Skin: ? Normal skin color. Extremities: 5/5 strength to bilateral upper and lower extremities Back: No midline tenderness, no C-spine tenderness, full range of motion, No CVA tenderness bilaterally Neuro: Oriented X 3.? No motor deficit.? No sensory deficit. Reevaluation(s) Reevaluation #1: Patient refusing IV fluids, she feels well and would like to be discharged home. I discussed with her that the dizziness may improve after receiving fluids. She states that she is feeling fine and would like to be discharged home. Discussed strict return precautions. She understands and agrees with plan. Urine does not appear to be infected however will send out for further testing and analysis. Discussed RICE techniques. She understands and agrees with plan. Stable for discharge. Time: 20:03 Medications Administered Discontinued Medications Generic Name Dose Route Start Last Admin Trade Name Freq PRN Reason Stop Dose Admin Diphtheria/Tetanus/Acell Pertussis 0.5 ml 03/08/24 15:34 03/08/24 17:58 Diphth,Pertus(Acell),Tet Adult 0.5 Ml Syringe IM 03/08/24 15:35 0.5 ml .ONCE ONE Administration Medical Decision Making Medical Decision Making [facility] Narrative: This is a 23-year-old female, with a history of diabetes, who presents emergency department with complaints of bilateral knee pain status post fall which occurred today. Patient states that she fell because she felt dizzy. She was attributing this to her diabetes. On arrival, patient hypertensive at 163/118, pulse 112, upon my assessment, vital signs within normal ranges. She is alert and oriented x4. No focal deficits on examination. She presents with bilateral knee abrasions, with full range of motion. Differential diagnoses include contusion, fracture, strain, strain. Electrolyte derangement, dehydration, cardiac arrhythmia, also considered due to dizziness. She has had no chest pain or shortness for breath. She has not had any dizziness since being in the emergency room. Labs were initially obtained prior to my assessment, she has slight leukocytosis at 14.4. She also reports slight dysuria for the last several days as well. X-ray of the left knee was obtained without findings of any bony abnormalities. Plan: Labs, UA, x-ray Differential Diagnosis Differential Diagnoses: The differential diagnosis associated with the presentation includes See above Admission/Observation Consideration of admission/observation: Escalation of care including admission/observation considered Escalation of care including admission/observation considered however given workup today not warranted at this time. Lab Data [facility] Lab Attestation statement: I reviewed the patient's lab results. Slight leukocytosis at 14.4, hyperglycemia at 289 she has a history of diabetes. Negative trop 03/08/24 15:43 03/08/24 15:43 Labs: Lab Results 03/08/24 03/08/24 03/08/24 Range/Units 15:43 15:45 18:40 WBC 14.4 H (4.8-10.8) X10*3/uL RBC 5.26 (4.20-5.50) X10*6/uL Hgb 15.8 (12.0-16.0) g/dl Hct 44.9 (37.0-47.0) % MCV 85.4 (80.0-98.0) fL MCH 30.0 (27.0-33.0) pg MCHC 35.2 H (31.0-35.0) g/dl RDW 12.0 (11.0-16.0) % Plt Count 269 (160-400) X10*3/uL MPV 10.3 (9.4-12.3) fL Immature Gran % (Auto) 0.4 (0.0-0.4) % Neut % (Auto) 70.9 (45-73) % Lymph % (Auto) 20.4 (20-40) % Marshall % (Auto) 5.2 (2-11) % Eos % (Auto) 2.4 (0-4) % Baso % (Auto) 0.7 (0-2) % Lymph # (Auto) 2.9 (1.2-4.9) X10*3/uL Marshall # (Auto) 0.7 (0.1-1.2) X10*3/uL Eos # (Auto) 0.3 (0.0-0.4) X10*3/uL Baso # (Auto) 0.1 (0.0-0.2) X10*3/uL Abs Immat Gran (auto) 0.06 H (0.00-0.03) X10*3/uL Absolute Neuts (auto) 10.2 H (2.0-8.3) x10*3/uL Absolute Nucleated RBC 0.000 (0.0-0.012) X10*3/uL Nucleated RBC % (auto) 0.0 (0.0-0.2) /100WBC Smear Tech's Comments VERIFIED PT 11.1 (11.1-13.3) SEC INR 0.9 (0.9-1.1) Sodium 138 (135-145) mmol/L Potassium 5.0 (3.3-5.1) mmol/L Chloride 103 (96-108) mmol/L Carbon Dioxide 25 (22-29) mmol/L Anion Gap 15 (12-20) BUN 15 (9-16) mg/dL Creatinine 0.79 (0.5-1.4) mg/dL Estim Creat Clear Calc 112.5 Estimated GFR > 60 Random Glucose 289 H (60-115) mg/dL Calcium 9.9 D (8.4-10.2) mg/dL Total Bilirubin 1.0 (0.0-1.0) mg/dL AST 20 (5-31) U/L ALT 17 (0-31) U/L Alkaline Phosphatase 78 (39-117) U/L Troponin I High Sens 3.3 (<3.5-17.0) ng/L Total Protein 8.0 (6.5-8.0) g/dL Albumin 4.1 (3.5-5.0) g/dL Beta HCG, Quant < 2 mIU/mL Urine Color Yellow Urine Appearance Clear Urine pH 5.0 (5.0-9.0) Ur Specific [place] >= 1.030 H (1.005-1.025) Urine Protein Negative (Neg-Trace) mg/dL Urine Glucose (UA) >=1000 H (Negative) mg/dL Urine Ketones Trace (Negative) mg/dL Urine Blood Negative (Negative) Urine Nitrite Negative (Negative) Ur Leukocyte Esterase Negative (Negative) Urine RBC 0-2 (0-2) /HPF Urine WBC 0-5 (0-5) /HPF Ur Squamous Epith Cells 3-5 (0-2) /HPF Urine Bacteria Trace (None Seen) Hyaline Casts 3-5 (0-2) /LPF Independent Interpretation I performed an independent interpretation of an: EKG Interpretation: Normal sinus rhythm with sinus arrhythmia, ventricular rate of 92 beats per minute, [place] interval 124, QT QTC 356/440. No ST elevation or depression. Radiology Impression Discussion of test interpretation with radiology: I have reviewed the radiologist's reading. Radiologist Impression: EXAMINATION: XR KNEE, LEFT CLINICAL INFORMATION: Left knee pain COMPARISON: None available. TECHNIQUE: Four views of the left knee. FINDINGS: No fracture, dislocation or destructive process or joint effusion. XR/XR knee LT 3V IMPRESSION: Negative study. Dictated By: Jesse Alvarado MD Discharge Plan Discharge Clinical Impression: Contusion of knee Patient Disposition: Home, Self-Care Instructions: Contusion in Adults (ED), R.I.C.E. Treatment (ED) Additional Instructions: You were seen in the emergency department after a fall. Your workup today was reassuring. Your urine does not appear to be infected. Your x-rays do not show any fractures. Please rest, ice, keep your knee elevated, and alternate between ibuprofen and Tylenol as needed for pain. Drink plenty of fluids get plenty of rest. Follow-up with your primary care physician regarding this visit. If any new or worsening symptoms occur, including but not limited to worsening pain, swelling, worsening dizziness, chest pain, shortness of breath, please return for re-evaluation. Prescriptions: No Action fluconazole 150 mg tablet 150 mg PO DAILY 3 Days Qty: 3 0RF Rx Instructions: administer on day 1 of therapy ondansetron 4 mg tablet,disintegrating 4 mg PO Q6-8H PRN (Reason: nausea and vomiting) Qty: 14 0RF ondansetron 4 mg tablet,disintegrating 4 mg PO DAILY PRN (Reason: nausea and vomiting) 5 Days Qty: 10 0RF benzonatate 100 mg capsule 100 mg PO TID PRN (Reason: cough) Qty: 20 0RF Interventions: ED Discharge Assessment Last Done: 03/08/24 19:49 Discharge Date/Time: 03/08/24 19:49 Print Language: Latvian
[2024-03-08 15:59] LABS: INTERNATIONAL NORM RATIO 0.9 (0.9-1.1); Prothrombin Time 11.1 SEC (11.1-13.3)
[2024-03-08 16:01] LABS: Basophils Absolute Auto 0.1 X10*3/uL (0.0-0.2); Basophils Percent Auto 0.7 % (0-2); Eosinophils Absolute Auto 0.3 X10*3/uL (0.0-0.4); Eosinophils Percent Auto 2.4 % (0-4); Hematocrit 44.9 % (37.0-47.0); Hemoglobin 15.8 g/dl (12.0-16.0); Imm Gran Abs Auto 0.06 X10*3/uL (0.00-0.03); Imm Gran Pct Auto 0.4 % (0.0-0.4); Lymphocytes Absolute Auto 2.9 X10*3/uL (1.2-4.9); Lymphocytes Percent Auto 20.4 % (20-40); MANUAL DIFF FLAG SCAN; Mean Corpuscular HGB Conc 35.2 g/dl (31.0-35.0); Mean Corpuscular Volume 85.4 fL (80.0-98.0); Mean Platelet Volume 10.3 fL (9.4-12.3); Monocytes Absolute Auto 0.7 X10*3/uL (0.1-1.2); Monocytes Percent Auto 5.2 % (2-11); Neutrophils Absolute Auto 10.2 x10*3/uL (2.0-8.3); Neutrophils Percent Auto 70.9 % (45-73); PLT CLUMP 1; Red Blood Count 5.26 X10*6/uL (4.20-5.50); SCAN SMEAR FLAG 1
[2024-03-08 16:08] LABS: Alanine Aminotransferase 17 U/L (0-31); Albumin Level 4.1 g/dL (3.5-5.0); Alkaline Phosphatase 78 U/L (39-117); Anion Gap 15 (12-20); Aspartate Amino Transferase 20 U/L (5-31); Blood Urea Nitrogen 15 mg/dL (9-16); Calcium 9.9 mg/dL (8.4-10.2); Carbon Dioxide 25 mmol/L (22-29); Chloride 103 mmol/L (96-108); Creatinine Clr Calc Pharmacy 112.5; Estimated Glomerular Filt Rate > 60; Glucose Random 289 mg/dL (60-115); Sodium 138 mmol/L (135-145)
[2024-03-08 16:15] LABS: Troponin-I High Sensitivity 3.3 ng/L (<3.5-17.0)
[2024-03-08 16:16] LABS: HCG Quantitative < 2 mIU/mL
[2024-03-08 16:18] LABS: Platelet Count 269 X10*3/uL (160-400); SLIDE REVIEW VERIFIED; White Blood Count 14.4 X10*3/uL (4.8-10.8)
[2024-03-08] MEDS: Diphth,Pertus(ACell),Tet Adult 0.5 ML SYRINGE IM (17:58)
[2024-03-08 18:07] VITALS: BP 136/92; PULSE 85
[2024-03-08 18:08] VITALS: BP 148/105; PULSE 87
--- NOTE | 2024-03-08 18:27 | PC.NURSE ---
Scrape from fall noted to left knee, cleaned and dressed with gauze.
[2024-03-08 18:40] VITALS: BP 136/88; PULSE 86; RESP 18; TEMP 36.6; O2SAT 98
[2024-03-08 18:48] LABS: Appearance Urine Clear; Color Urine Yellow; Glucose Urine UA >=1000 mg/dL (Negative); Leukocyte Esterase Urine Negative (Negative); Nitrite Urine Negative (Negative); Specific Gravity - Urine >= 1.030 (1.005-1.025); UMIC TRIGGER UACC YES; Urine Blood Negative (Negative); Urine Ketones Trace mg/dL (Negative); Urine Protein Negative (Neg-Trace)
[2024-03-08 18:53] LABS: Bacteria Urine Trace (None Seen); RBC Urine 0-2 /HPF (0-2); WBC Urine 0-5 /HPF (0-5)
[2024-03-08 19:44] VITALS: BP 133/92; PULSE 91; RESP 14; TEMP 36.8; O2SAT 98
[2024-03-08 19:49] VITALS: BP 133/92; PULSE 91; RESP 14; TEMP 36.8; O2SAT 98
== END 2024-03-08 19:49 | disposition home or self-care (01) ==
PROVIDERS: Physician Assistant; Physician Assistant Medical; Emergency Provider Emergency Medicine
DX: S80.02XA Contusion of left knee, initial encounter (principal); S80.01XA Contusion of right knee, initial encounter; W10.9XXA Fall (on) (from) unspecified stairs and steps, initial encounter; Y93.9 Activity, unspecified; Y92.9 Unspecified place or not applicable; Y99.9 Unspecified external cause status; R42 Dizziness and giddiness; M25.562 Pain in left knee; M25.561 Pain in right knee; E11.9 Type 2 diabetes mellitus without complications; Z23 Encounter for immunization
CPT/HCPCS: 36415; 73562; 80053; 81001; 84484; 84702; 85025; 85610; 90471; 90715; 93005; 99284; 99285

== ENCOUNTER → 2024-03-08 15:35 | Outpatient (BNV) | payer OTHER, SELFPAY | PROVIDERS: Emergency Provider Emergency Medicine; Visit Provider Internal Medicine | DX: R42 Dizziness and giddiness (principal) | CPT/HCPCS: 93010 ==

== ENCOUNTER 2024-03-11 15:29 | Emergency (ER) | payer OTHER, SELFPAY ==
[2024-03-11 15:32] VITALS: BP 166/109; PULSE 100; RESP 16; TEMP 36.4; O2SAT 95; BMI 40.4
--- NOTE | 2024-03-11 15:39 | ED_ITS ---
HPI - Extremity Injury (Lower) General Chief Complaint: Wound/Laceration Stated Complaint: left knee laceration ? infection Time Seen by Provider: 03/11/24 16:05 Source: patient Mode of arrival: ambulatory Limitations: no limitations History of Present Illness ED Provider: Maribeth Kurtz PA-C HPI Narrative: Patient is a 23 year old assigned female at with a history of DM presenting to the emergency department today with left knee pain. Patient states that she was seen a few days ago for a left knee abrasion and now it is yellowish and painful. Patient denies any dizziness, lightheadedness, abdominal pain, nausea, vomiting, fever, chills, blurry vision, double vision, loss of vision, chest pain, difficulty breathing, shortness of breath, back pain, night sweats, pain with urination, increased urinary frequency, increased urinary urgency, blood in her urine or stool, syncope or a near syncopal episode, bowel incontinence, bladder incontinence, or any other complaints at this time. Other symptoms: none Related Data Previous Rx's ?Medication ?Instructions ?Recorded benzonatate 100 mg capsule 100 mg PO TID PRN cough #20 caps 07/08/23 ondansetron 4 mg disintegrating 4 mg PO DAILY PRN nausea and 07/08/23 tablet vomiting 5 days #10 tabs fluconazole 150 mg tablet 150 mg PO DAILY 3 days #3 tabs 07/24/23 ondansetron 4 mg disintegrating 4 mg PO Q6-8H PRN nausea and 09/01/23 tablet vomiting #14 tabs doxycycline hyclate 100 mg tablet 100 mg PO BID 7 days #14 tabs 03/11/24 Allergies Allergy/AdvReac Type Severity Reaction Status Date / Time acetaminophen Allergy Hives Verified 03/11/24 15:41 amoxicillin Allergy Anaphylaxis Verified 03/11/24 15:41 codeine Allergy Anaphylaxis Verified 03/11/24 15:41 Penicillins Allergy Anaphylaxis Verified 03/11/24 15:41 Review of Systems 2 Constitutional: Constitutional: Reports no additional constitutional complaints, Denies chills, Denies fever(s) and Denies night sweats Eyes: Eyes: Reports no additional eye complaints, Denies blurry vision, Denies change in vision, Denies diplopia, Denies eye discharge, Denies loss of vision and Denies eye pain ENT: Denies dizziness Cardiovascular: Cardiovascular: Reports no additional cardiovascular complaints, Denies chest pain, Denies lightheadedness, Denies Loss of Consciousness and Denies dyspnea Respiratory: Respiratory: Reports no additional respiratory complaints and Denies dyspnea Gastrointestinal: Gastrointestinal: Reports no additional gastrointestinal complaints, Denies abdominal pain, Denies melena, Denies hematochezia, Denies change in bowel habits and Denies change in stool character Genitourinary: Genitourinary: Denies hematuria, Denies urinary frequency, Denies dysuria, Denies urinary incontinence, Denies urinary hesitancy and Denies urinary urgency Musculoskeletal: Musculoskeletal: Reports no additional musculoskeletal complaints, Denies numbness and Denies tingling Comments: abrasion to left knee Neurologic: Denies dizziness, Denies loss of vision, Denies numbness and Denies tingling Psychiatric: Psychiatric: Reports no additional psychiatric complaints Endocrine: Endocrine: Reports no additional endocrine complaints Hematologic/Lymphatic: Hematologic/Lymphatic: Reports no additional hematologic/lymphatic complaints Allergic/Immunologic: Allergic/Immunologic: Reports no additional allergic/immunologic complaints [facility] Past Medical History Attestation statement: The following information was validated with the patient. Source: old records reviewed and nursing notes reviewed Social History Social History Alcohol intake: never Substance Use Type: Marijuana Advance Directives: No Advance Directives Information Provided: No Do you have a plan to hurt others: No Plan Physical Exam 2 Vital Signs: Vital Signs: Last Vital Signs Temp 98.3 F 03/11/24 16:37 Pulse 90 03/11/24 16:37 Resp 18 03/11/24 16:37 BP 147/94 H 03/11/24 16:37 Pulse Ox 98 03/11/24 16:37 O2 Del Method Room Air 03/11/24 16:37 BMI result Body Mass Index 40.4 Const: General: cooperative, no acute distress, alert and awake Nutritional Appearance: well nourished Orientation/consciousness: patient oriented x3 Limitations: no limitations HEENT: Head: Yes normal to inspection and Yes atraumatic Ears: hearing grossly normal bilaterally and external ears normal General nose exam: Normal external nose present, no nasal discharge noted and no epistaxis Face and sinus: Yes normal facial exam, No abrasion and No laceration Mouth: Normal oral and palatal mucosa present, no drooling and no muffled voice Eyes: General: appearance normal, both eyes and all related structures P eriorbital: periorbital findings normal Eyelids: Yes eyelids normal C onjunctivae: conjunctivae normal Pupils: Equal, round and reactive pupils present EOM: EOMs intact bilaterally Neck: Neck: Yes normal visual inspection, Yes full ROM and Yes no lymphadenopathy Chest: Chest palpation & inspection: normal inspection of the chest Resp: Effort & Inspection: normal respiratory effort and able to speak in complete sentences GI: Inspection: Yes normal to inspection Neuro: General: patient oriented x3 and moves all extremities Cranial nerves: Yes Equal, round and reactive pupils present Cognition (Neuro): n ormal cognition Extrem: General: Yes full ROM and Yes capillary refill normal Knee images: 1. abrasion with yellowing around edges - no active drainage or bleeding Psych: Appearance: grossly normal Mental Status: mental status grossly normal Affect: normal affect Attitude: cooperative Thought process: N ormal thought process present Thought content: Normal thought content present Insight: Good insight present (Psych) Course Course Course Narrative: This is a Rapid Medical Examination (RME) performed by Ino Hernandez PA-C in triage. Full HPI, ROS, assessment and treatment plan per primary provider in the Main ED. 23 yo female hx of DM here for eval of possible infected knee abrasion. patient seen here on 03/08/24 after fall down 4 stairs onto left knee. noted to have abrasion. no fracture. discharge home w/ RICE tx. patient reports worsening redness to anterior knee abrasion with moderate amount of yellow discharge this morning. reports concern for infection as she is diabetic. admits increasing pain to the knee especially on flexion. Plan: basic labs, repeat xr Medications Administered Discontinued Medications Generic Name Dose Route Start Last Admin Trade Name Freq PRN Reason Stop Dose Admin Doxycycline Monohydrate 100 mg 03/11/24 16:19 03/11/24 16:31 Doxycycline Monohydrate 100 Mg Capsule PO 03/11/24 16:20 100 mg ONCE ONE Administration Medical Decision Making Medical Decision Making [facility] Narrative: Patient is a 23 year old assigned female at with a history of DM presenting to the emergency department today with a left knee abrasion. Patient's physical exam was as noted in the physical exam portion of this note and consistent with a cellulitis. Patient's knee has full mobility and at this time, I am not concerned of a septic joint. Patient is allergic to PCNs with an anaphylaxis type reaction - will prescribe doxycycline. Patient's blood work showed a mild elevation of the WBC count of 13.4 but were otherwise unremarkable. I explained my physical exam findings as well as all test results to the patient. I answered all questions asked by the patient. I stressed the importance of the patient taking her medication as directed (either prescribed or as the over the counter packaging recommends). I stressed the importance of the patient following up with her primary care provider. I stressed the importance of the patient returning to the emergency department immediately if her symptoms were to worsen or if she were to develop any dizziness, shortness of breath, difficulty breathing, chest pain, blurry vision, loss of vision, nausea, vomiting, abdominal pain, fever, chills, back pain, or any other complaints. Patient verbalized agreement and understanding with this treatment plan and discharge. Differential Diagnosis Differential Diagnoses: The differential diagnosis associated with the presentation includes Abrasion Wound infection Cellulitis Admission/Observation Consideration of admission/observation: Escalation of care including admission/observation considered Patient would have been admitted to the hospital had her work up had any findings where hospital admission was appropriate and her clinical presentation warranted hospital admission. Lab Data [facility] Lab Attestation statement: I reviewed the patient's lab results. My interpretation of these results are in the [facility] Rationale portion of this note. 03/11/24 15:57 03/11/24 15:57 Labs: Lab Results 03/11/24 Range/Units 15:57 WBC 13.4 H (4.8-10.8) X10*3/uL RBC 4.79 (4.20-5.50) X10*6/uL Hgb 14.5 (12.0-16.0) g/dl Hct 40.8 (37.0-47.0) % MCV 85.2 (80.0-98.0) fL MCH 30.3 (27.0-33.0) pg MCHC 35.5 H (31.0-35.0) g/dl RDW 11.9 (11.0-16.0) % Plt Count 275 (160-400) X10*3/uL MPV 9.8 (9.4-12.3) fL Immature Gran % (Auto) 0.4 (0.0-0.4) % Neut % (Auto) 63.0 (45-73) % Lymph % (Auto) 27.3 (20-40) % [place] % (Auto) 5.7 (2-11) % Eos % (Auto) 2.9 (0-4) % Baso % (Auto) 0.7 (0-2) % Lymph # (Auto) 3.7 (1.2-4.9) X10*3/uL [place] # (Auto) 0.8 (0.1-1.2) X10*3/uL Eos # (Auto) 0.4 (0.0-0.4) X10*3/uL Baso # (Auto) 0.1 (0.0-0.2) X10*3/uL Abs Immat Gran (auto) 0.05 H (0.00-0.03) X10*3/uL Absolute Neuts (auto) 8.5 H (2.0-8.3) x10*3/uL Absolute Nucleated RBC 0.000 (0.0-0.012) X10*3/uL Nucleated RBC % (auto) 0.0 (0.0-0.2) /100WBC Sodium 140 (135-145) mmol/L Potassium 4.3 (3.3-5.1) mmol/L Chloride 103 (96-108) mmol/L Carbon Dioxide 29 (22-29) mmol/L Anion Gap 12 (12-20) BUN 11 (9-16) mg/dL Creatinine 0.79 (0.5-1.4) mg/dL Estim Creat Clear Calc 108.7 Estimated GFR > 60 Random Glucose 270 H (60-115) mg/dL Calcium 10.0 (8.4-10.2) mg/dL Prescription Management I considered prescription management with: Antibiotic (patient prescribed an antibiotic for her left knee cellulitis) Discharge Plan Discharge Clinical Impression: Cellulitis Patient Disposition: Home, Self-Care Instructions: Cellulitis (DC) Additional Instructions: Take your antibiotic as prescribed. Follow up with your primary care provider. Return to the emergency department immediately if your symptoms worsen or if you develop any dizziness, shortness of breath, difficulty breathing, chest pain, blurry vision, loss of vision, nausea, vomiting, abdominal pain, fever, chills, back pain, or any other complaints. Prescriptions: New doxycycline hyclate 100 mg tablet 100 mg PO BID 7 Days Qty: 14 0RF No Action fluconazole 150 mg tablet 150 mg PO DAILY 3 Days Qty: 3 0RF Rx Instructions: administer on day 1 of therapy ondansetron 4 mg tablet,disintegrating 4 mg PO Q6-8H PRN (Reason: nausea and vomiting) Qty: 14 0RF ondansetron 4 mg tablet,disintegrating 4 mg PO DAILY PRN (Reason: nausea and vomiting) 5 Days Qty: 10 0RF benzonatate 100 mg capsule 100 mg PO TID PRN (Reason: cough) Qty: 20 0RF Referrals: [facility] [place] Family Medicine [Provider Group] (Call to establish and follow up with a primary care provider. If you already have a primary care provider, please follow up with them.) [facility] Primary [facility] [Provider Group] [facility] Primary [facility] [Provider Group] Stand Alone Forms: Work/School Release Interventions: ED Discharge Assessment Last Done: 03/11/24 16:37 Discharge Date/Time: 03/11/24 16:38 Print Language: Persian
[2024-03-11 16:01] LABS: MANUAL DIFF FLAG NO
[2024-03-11 16:03] LABS: Basophils Absolute Auto 0.1 X10*3/uL (0.0-0.2); Basophils Percent Auto 0.7 % (0-2); Eosinophils Absolute Auto 0.4 X10*3/uL (0.0-0.4); Eosinophils Percent Auto 2.9 % (0-4); Hematocrit 40.8 % (37.0-47.0); Hemoglobin 14.5 g/dl (12.0-16.0); Imm Gran Abs Auto 0.05 X10*3/uL (0.00-0.03); Imm Gran Pct Auto 0.4 % (0.0-0.4); Lymphocytes Absolute Auto 3.7 X10*3/uL (1.2-4.9); Lymphocytes Percent Auto 27.3 % (20-40); Mean Corpuscular HGB Conc 35.5 g/dl (31.0-35.0); Mean Corpuscular Hemoglobin 30.3 pg (27.0-33.0); Mean Corpuscular Volume 85.2 fL (80.0-98.0); Mean Platelet Volume 9.8 fL (9.4-12.3); Monocytes Absolute Auto 0.8 X10*3/uL (0.1-1.2); Monocytes Percent Auto 5.7 % (2-11); Neutrophils Absolute Auto 8.5 x10*3/uL (2.0-8.3); Platelet Count 275 X10*3/uL (160-400); Red Blood Count 4.79 X10*6/uL (4.20-5.50); Red Cell Distribution Width 11.9 % (11.0-16.0); White Blood Count 13.4 X10*3/uL (4.8-10.8)
--- NOTE | 2024-03-11 16:05 | PC.NURSE ---
Informed by obstetrics tech patient is refusing xray, patient states she had an xray 2 days ago and knows her knee is not broken .
[2024-03-11 16:26] LABS: Anion Gap 12 (12-20); Blood Urea Nitrogen 11 mg/dL (9-16); Carbon Dioxide 29 mmol/L (22-29); Chloride 103 mmol/L (96-108); Creatinine Clr Calc Pharmacy 108.7; Estimated Glomerular Filt Rate > 60; Glucose Random 270 mg/dL (60-115); Potassium 4.3 mmol/L (3.3-5.1); Sodium 140 mmol/L (135-145)
[2024-03-11] MEDS: Doxycycline Monohydrate 100 MG CAPSULE PO (16:31)
[2024-03-11 16:37] VITALS: BP 147/94; PULSE 90; RESP 18; TEMP 36.8; O2SAT 98
== END 2024-03-11 16:38 | disposition home or self-care (01) ==
PROVIDERS: Physician Assistant Medical; Emergency Provider Emergency Medicine Emergency Medical Services
DX: L03.116 Cellulitis of left lower limb (principal); M25.562 Pain in left knee; E11.9 Type 2 diabetes mellitus without complications; Z79.899 Other long term (current) drug therapy
CPT/HCPCS: 36415; 80048; 85025; 99282; 99283

== ENCOUNTER 2024-05-01 14:43 | Emergency (ER) | payer OTHER, SELFPAY ==
[2024-05-01 14:52] VITALS: BP 162/119; PULSE 104; RESP 18; TEMP 36.9; O2SAT 96; BMI 41.6
[2024-05-01 15:18] LABS: MANUAL DIFF FLAG NO
[2024-05-01 15:19] LABS: Basophils Absolute Auto 0.1 X10*3/uL (0.0-0.2); Basophils Percent Auto 0.7 % (0-2); Eosinophils Absolute Auto 0.3 X10*3/uL (0.0-0.4); Eosinophils Percent Auto 2.4 % (0-4); Hemoglobin 15.5 g/dl (12.0-16.0); Imm Gran Abs Auto 0.04 X10*3/uL (0.00-0.03); Imm Gran Pct Auto 0.3 % (0.0-0.4); Lymphocytes Absolute Auto 3.1 X10*3/uL (1.2-4.9); Lymphocytes Percent Auto 23.3 % (20-40); Mean Corpuscular HGB Conc 35.2 g/dl (31.0-35.0); Mean Corpuscular Hemoglobin 29.4 pg (27.0-33.0); Mean Corpuscular Volume 83.5 fL (80.0-98.0); Mean Platelet Volume 9.6 fL (9.4-12.3); Monocytes Absolute Auto 0.8 X10*3/uL (0.1-1.2); Monocytes Percent Auto 6.1 % (2-11); Neutrophils Absolute Auto 8.8 x10*3/uL (2.0-8.3); Neutrophils Percent Auto 67.2 % (45-73); Platelet Count 333 X10*3/uL (160-400); Red Blood Count 5.27 X10*6/uL (4.20-5.50); Red Cell Distribution Width 12.2 % (11.0-16.0); White Blood Count 13.1 X10*3/uL (4.8-10.8)
[2024-05-01 15:20] LABS: Appearance Urine Turbid; Color Urine Dark Yellow; Glucose Urine UA 500 mg/dL (Negative); Leukocyte Esterase Urine Trace (Negative); Nitrite Urine Negative (Negative); PH 5.5 (5.0-9.0); Specific Gravity - Urine 1.025 (1.005-1.025); UMIC TRIGGER UACC YES; Urine Blood Negative (Negative); Urine Ketones Trace mg/dL (Negative); Urine Protein 30 (1+) mg/dL (Neg-Trace)
[2024-05-01 15:21] LABS: UPreg QC Valid YES; Urine Pregnancy NEGATIVE (NEGATIVE)
[2024-05-01 15:32] LABS: RBC Urine 0-2 /HPF (0-2); Squamous Epithelial Cell Urine 0-2 /HPF (0-2); WBC Urine 0-5 /HPF (0-5)
[2024-05-01 15:33] LABS: Bacteria Urine 2+ (None Seen); Hyaline Casts Urine 0-2 /LPF (0-2)
--- NOTE | 2024-05-01 15:34 | ED_ITS ---
HPI - General Adult General Chief complaint: Abdominal Pain Stated complaint: lower abd pain questing Time Seen by Provider: 05/01/24 17:56 Source: patient Mode of arrival: ambulatory Limitations: no limitations History of Present Illness ED Provider: Maribeth Kurtz PA-C HPI narrative: Patient is a 23 year old assigned female at with a history of DM presenting to the emergency department today with lower abdominal pain and requesting testing. Patient states that she feels as though her period is late and she is having some intermittent lower abdominal pain. Patient denies any dizziness, lightheadedness, nausea, vomiting, fever, chills, blurry vision, double vision, loss of vision, chest pain, difficulty breathing, shortness of breath, back pain, night sweats, pain with urination, increased urinary frequency, increased urinary urgency, blood in her urine or stool, syncope or a near syncopal episode, recent trauma or falls, bowel incontinence, bladder incontinence, or any other complaints at this time. Relieving factors: none Exacerbating factors: none Associated symptoms: denies other symptoms Treatments prior to arrival: none Related Data Previous Rx's ?Medication ?Instructions ?Recorded benzonatate 100 mg capsule 100 mg PO TID PRN cough #20 caps 07/08/23 ondansetron 4 mg disintegrating 4 mg PO DAILY PRN nausea and 07/08/23 tablet vomiting 5 days #10 tabs fluconazole 150 mg tablet 150 mg PO DAILY 3 days #3 tabs 07/24/23 ondansetron 4 mg disintegrating 4 mg PO Q6-8H PRN nausea and 09/01/23 tablet vomiting #14 tabs doxycycline hyclate 100 mg tablet 100 mg PO BID 7 days #14 tabs 03/11/24 Allergies Allergy/AdvReac Type Severity Reaction Status Date / Time acetaminophen Allergy Hives Verified 05/01/24 14:53 amoxicillin Allergy Anaphylaxis Verified 05/01/24 14:53 codeine Allergy Anaphylaxis Verified 05/01/24 14:53 Penicillins Allergy Anaphylaxis Verified 05/01/24 14:53 Review of Systems 2 Constitutional: Constitutional: Reports no additional constitutional complaints, Denies chills, Denies fever(s) and Denies night sweats Eyes: Eyes: Reports no additional eye complaints, Denies blurry vision, Denies change in vision, Denies diplopia, Denies eye discharge, Denies loss of vision and Denies eye pain ENT: Denies dizziness Cardiovascular: Cardiovascular: Reports no additional cardiovascular complaints, Denies chest pain, Denies lightheadedness, Denies Loss of Consciousness and Denies dyspnea Respiratory: Respiratory: Reports no additional respiratory complaints and Denies dyspnea Gastrointestinal: Gastrointestinal: Reports no additional gastrointestinal complaints, Reports abdominal pain, Denies melena, Denies hematochezia, Denies change in bowel habits and Denies change in stool character Genitourinary: Genitourinary: Denies hematuria, Denies urinary frequency, Denies dysuria, Denies urinary incontinence, Denies urinary hesitancy and Denies urinary urgency Musculoskeletal: Musculoskeletal: Reports no additional musculoskeletal complaints, Denies numbness and Denies tingling Neurologic: Denies dizziness, Denies loss of vision, Denies numbness and Denies tingling Psychiatric: Psychiatric: Reports no additional psychiatric complaints Endocrine: Endocrine: Reports no additional endocrine complaints Hematologic/Lymphatic: Hematologic/Lymphatic: Reports no additional hematologic/lymphatic complaints Allergic/Immunologic: Allergic/Immunologic: Reports no additional allergic/immunologic complaints PMFSH Past Medical History Attestation statement: The following information was validated with the patient. Source: old records reviewed and nursing notes reviewed Social History Social History Alcohol intake: never Substance Use Type: Marijuana Advance Directives: No Advance Directives Information Provided: No Do you have a plan to hurt others: No Plan Physical Exam ED Vital Signs: Vital Signs - 24 hr 05/01/24 14:52 05/01/24 17:58 Temperature 98.5 F 0 F L Pulse Rate 104 H 0 L Respiratory Rate 18 0 L Blood Pressure 162/119 H 00/00 L Pulse Oximetry 96 0 L Oxygen Delivery Method Room Air BMI result Body Mass Index 41.6 Const General: cooperative, no acute distress, alert and awake Nutritional Appearance: well nourished Orientation/consciousness: patient oriented x3 Limitations: no limitations HENMT Head: Yes normal to inspection and Yes atraumatic Ears: hearing grossly normal bilaterally and external ears normal General nose exam: Normal external nose present, no nasal discharge noted and no epistaxis Face and sinus: Yes normal facial exam, No abrasion and No laceration Mouth: Normal oral and palatal mucosa present, no drooling and no muffled voice Eyes General: appearance normal, both eyes and all related structures Periorbital: periorbital findings normal Eyelids: Yes eyelids normal Conjunctivae: conjunctivae normal Pupils: Equal, round and reactive pupils present EOM: EOMs intact bilaterally Neck Neck: Yes normal visual inspection, Yes full ROM and Yes no lymphadenopathy Chest Chest palpation & inspection: normal inspection of the chest Resp Effort & Inspection: normal respiratory effort and able to speak in complete sentences GI Inspection: Yes normal to inspection Palpation (GI): Soft to palpation, not firm, nontender and no guarding Neuro General: patient oriented x3 and moves all extremities Cranial nerves: Yes Equal, round and reactive pupils present Cognition (Neuro): normal cognition Extrem General: Yes normal to inspection, Yes full ROM and Yes capillary refill normal Psych Appearance: grossly normal Mental Status: mental status grossly normal Affect: normal affect Attitude: cooperative Thought process: Normal thought process present Thought content: Normal thought content present Insight: Good insight present (Psych) Course Course Course Narrative: RME performed by Maribeth Kurtz PA-C. Patient is a 23 year old assigned female at presenting to the emergency department with lower abdominal pain. Detailed physical exam and review of systems are deferred to the planing machine operator. Labs ordered. Patient placed back in the waiting room pending room availability and results. Medical Decision Making Medical Decision Making MDM Narrative: Patient is a 23 year old assigned female at with a history of DM presenting to the emergency department today with abdominal pain and testing. Patient's physical exam was unremarkable. Patient's blood work was unremarkable. Patient's urine showed no acute process. I explained my physical exam findings as well as all test results to the patient. I answered all questions asked by the patient. I stressed the importance of the patient taking her medication as directed (either prescribed or as the over the counter packaging recommends). I stressed the importance of the patient following up with her primary care provider. I stressed the importance of the patient returning to the emergency department immediately if her symptoms were to worsen or if she were to develop any dizziness, shortness of breath, difficulty breathing, chest pain, blurry vision, loss of vision, nausea, vomiting, abdominal pain, fever, chills, back pain, or any other complaints. Patient verbalized agreement and understanding with this treatment plan and discharge. Differential Diagnosis Differential Diagnoses: The differential diagnosis associated with the presentation includes Abdominal pain Admission/Observation Consideration of admission/observation: Escalation of care including admission/observation considered Patient would have been admitted to the hospital had her work up had any findings where hospital admission was appropriate and her clinical presentation warranted hospital admission. Lab Data [facility] Lab Attestation statement: I reviewed the patient's lab results. My interpretation of these results are in the MDM Rationale portion of this note. 05/01/24 15:07 05/01/24 15:07 Labs: Lab Results 05/01/24 05/01/24 05/01/24 Range/Units 15:07 15:13 15:58 WBC 13.1 H (4.8-10.8) X10*3/uL RBC 5.27 (4.20-5.50) X10*6/uL Hgb 15.5 (12.0-16.0) g/dl Hct 44.0 (37.0-47.0) % MCV 83.5 (80.0-98.0) fL MCH 29.4 (27.0-33.0) pg MCHC 35.2 H (31.0-35.0) g/dl RDW 12.2 (11.0-16.0) % Plt Count 333 (160-400) X10*3/uL MPV 9.6 (9.4-12.3) fL Immature Gran % (Auto) 0.3 (0.0-0.4) % Neut % (Auto) 67.2 (45-73) % Lymph % (Auto) 23.3 (20-40) % [place] % (Auto) 6.1 (2-11) % Eos % (Auto) 2.4 (0-4) % Baso % (Auto) 0.7 (0-2) % Lymph # (Auto) 3.1 (1.2-4.9) X10*3/uL [place] # (Auto) 0.8 (0.1-1.2) X10*3/uL Eos # (Auto) 0.3 (0.0-0.4) X10*3/uL Baso # (Auto) 0.1 (0.0-0.2) X10*3/uL Abs Immat Gran (auto) 0.04 H (0.00-0.03) X10*3/uL Absolute Neuts (auto) 8.8 H (2.0-8.3) x10*3/uL Absolute Nucleated RBC 0.000 (0.0-0.012) X10*3/uL Nucleated RBC % (auto) 0.0 (0.0-0.2) /100WBC Sodium 138 (135-145) mmol/L Potassium 3.7 (3.3-5.1) mmol/L Chloride 106 (96-108) mmol/L Carbon Dioxide 24 (22-29) mmol/L Anion Gap 12 (12-20) BUN 8 L (9-16) mg/dL Creatinine 0.76 (0.5-1.4) mg/dL Estim Creat Clear Calc 110.2 Estimated GFR > 60 Random Glucose 263 H (60-115) mg/dL Calcium 9.1 D (8.4-10.2) mg/dL Total Bilirubin 1.3 H (0.0-1.0) mg/dL AST 23 (5-31) U/L ALT 27 (0-31) U/L Alkaline Phosphatase 82 (39-117) U/L Total Protein 7.7 (6.5-8.0) g/dL Albumin 4.0 (3.5-5.0) g/dL Beta HCG, Quant < 2 mIU/mL Urine Color Dark Yellow Urine Appearance Turbid Urine pH 5.5 (5.0-9.0) Ur Specific [place] 1.025 (1.005-1.025) Urine Protein 30 (1+) H (Neg-Trace) mg/dL Urine Glucose (UA) 500 H (Negative) mg/dL Urine Ketones Trace (Negative) mg/dL Urine Blood Negative (Negative) Urine Nitrite Negative (Negative) Ur Leukocyte Esterase Trace H (Negative) Urine RBC 0-2 (0-2) /HPF Urine WBC 0-5 (0-5) /HPF Ur Squamous Epith Cells 0-2 (0-2) /HPF Urine Bacteria 2+ (None Seen) Hyaline Casts 0-2 (0-2) /LPF Urine Test NEGATIVE (NEGATIVE) Influenza Type A (PCR) NEGATIVE (Negative) Influenza Type B (PCR) NEGATIVE (Negative) RSV RNA Qual (PCR) NEGATIVE (Negative) SARS-CoV-2 RNA (RT-PCR) NEGATIVE (Negative) Tests considered The following testing was considered but not selected: I considered obtaining a CT scan of the abdomen/pelvis however, the patient's current clinical presentation did not warrant this. I discussed this with the patient who verbalized understanding and agreement. Discharge Plan Discharge Clinical Impression: Abdominal pain Patient Disposition: Home, Self-Care Instructions: Abdominal Pain (ED) Additional Instructions: Follow up with your primary care provider. Return to the emergency department immediately if your symptoms worsen or if you develop any dizziness, shortness of breath, difficulty breathing, chest pain, blurry vision, loss of vision, nausea, vomiting, abdominal pain, fever, chills, back pain, or any other complaints. Prescriptions: No Action fluconazole 150 mg tablet 150 mg PO DAILY 3 Days Qty: 3 0RF Rx Instructions: administer on day 1 of therapy ondansetron 4 mg tablet,disintegrating 4 mg PO Q6-8H PRN (Reason: nausea and vomiting) Qty: 14 0RF ondansetron 4 mg tablet,disintegrating 4 mg PO DAILY PRN (Reason: nausea and vomiting) 5 Days Qty: 10 0RF benzonatate 100 mg capsule 100 mg PO TID PRN (Reason: cough) Qty: 20 0RF doxycycline hyclate 100 mg tablet 100 mg PO BID 7 Days Qty: 14 0RF Referrals: [facility] [place] Family Medicine [Provider Group] (Call to establish and follow up with a primary care provider. If you already have a primary care provider, please follow up with them.) [facility] Primary [facility] [Provider Group] (Call to establish and follow up with a primary care provider. If you already have a primary care provider, please follow up with them.) [facility] Primary [facility] [Provider Group] (Call to establish and follow up with a primary care provider. If you already have a primary care provider, please follow up with them.) Interventions: ED Discharge Assessment Last Done: 05/01/24 17:58 Discharge Date/Time: 05/01/24 17:59 Print Language: Mohawk
[2024-05-01 15:43] LABS: Alanine Aminotransferase 27 U/L (0-31); Alkaline Phosphatase 82 U/L (39-117); Anion Gap 12 (12-20); Aspartate Amino Transferase 23 U/L (5-31); Bilirubin Total 1.3 mg/dL (0.0-1.0); Blood Urea Nitrogen 8 mg/dL (9-16); Calcium 9.1 mg/dL (8.4-10.2); Carbon Dioxide 24 mmol/L (22-29); Chloride 106 mmol/L (96-108); Creatinine Clr Calc Pharmacy 110.2; Estimated Glomerular Filt Rate > 60; Glucose Random 263 mg/dL (60-115); Potassium 3.7 mmol/L (3.3-5.1); Sodium 138 mmol/L (135-145); Total Protein 7.7 g/dL (6.5-8.0)
[2024-05-01 15:44] LABS: HCG Quantitative < 2 mIU/mL
[2024-05-01 16:50] LABS: Influenza A PCR NEGATIVE (Negative); Influenza B PCR NEGATIVE (Negative); Resp Syncy Virus RNA Qual PCR NEGATIVE (Negative); SARS COV2 PCR INHOUSE NEGATIVE (Negative)
[2024-05-01 17:58] VITALS: BP 00/00; PULSE 0; RESP 0; TEMP -17.7; TEMP 0; O2SAT 0
== END 2024-05-01 17:59 | disposition home or self-care (01) ==
PROVIDERS: Physician Assistant Medical; Emergency Provider Internal Medicine
DX: R10.9 Unspecified abdominal pain (principal); Z03.818 Encounter for observation for suspected exposure to other biological agents ruled out; Z79.899 Other long term (current) drug therapy
CPT/HCPCS: 0241U; 36415; 80053; 81001; 81025; 84702; 85025; 99282; 99283

== ENCOUNTER 2024-05-04 17:34 | Emergency (ER) | payer OTHER, SELFPAY ==
[2024-05-04 17:43] VITALS: BP 170/100; PULSE 99; RESP 16; TEMP 37.1; O2SAT 98; BMI 40.4
--- NOTE | 2024-05-04 18:12 | ED.FEMALEGU ---
HPI - Female Genitourinary General Chief complaint: Urogenital-Female Stated complaint: uti getting worse Time Seen by Provider: 05/04/24 20:03 Source: patient, RN notes reviewed and old records reviewed Mode of arrival: ambulatory Limitations: no limitations History of Present Illness ED Provider: Tiffany BAI Narrative: 23-year-old female with past medical history significant for diabetes presents for evaluation of lower abdominal pain, vaginal itching. She reports 3 days of symptoms. She was presenting to the ED to had labs and a urinalysis but left without being seen Patient reports that she has foul-smelling discharge that is consistent with yeast infection she has had in the past She was on azithromycin and doxycycline within the last 2 months for upper respiratory infection She also reports that she has had irregular menstrual cycle over the last few months She had a negative test 2 days ago. She is seeking OBGYN follow-up Denies any fevers or chills. No other complaints or concerns at this time Related Data Previous Rx's ?Medication ?Instructions ?Recorded benzonatate 100 mg capsule 100 mg PO TID PRN cough #20 caps 07/08/23 ondansetron 4 mg disintegrating 4 mg PO DAILY PRN nausea and 07/08/23 tablet vomiting 5 days #10 tabs fluconazole 150 mg tablet 150 mg PO DAILY 3 days #3 tabs 07/24/23 ondansetron 4 mg disintegrating 4 mg PO Q6-8H PRN nausea and 09/01/23 tablet vomiting #14 tabs doxycycline hyclate 100 mg tablet 100 mg PO BID 7 days #14 tabs 03/11/24 fluconazole 100 mg tablet 100 mg PO ONCE #1 tab 05/04/24 (Diflucan) nitrofurantoin 100 mg PO Q12H 5 days #10 caps 05/04/24 monohydrate/macrocrystals 100 mg capsule (Macrobid) Allergies Allergy/AdvReac Type Severity Reaction Status Date / Time acetaminophen Allergy Hives Verified 05/04/24 17:44 amoxicillin Allergy Anaphylaxis Verified 05/04/24 17:44 codeine Allergy Anaphylaxis Verified 05/04/24 17:44 Penicillins Allergy Anaphylaxis Verified 05/04/24 17:44 Review of Systems Constitutional: Constitutional: Denies body ache(s), Denies chills and Denies fever(s) ENT: Denies sore throat Cardiovascular: Cardiovascular: Denies chest pain Respiratory: Respiratory: Denies cough Gastrointestinal: Gastrointestinal: Reports abdominal pain and Reports GI cramping Genitourinary: Genitourinary: Reports genital pruritis, Reports dysuria, Reports pelvic pain, Reports flank pain, Reports vaginal discharge and Reports vaginal odor Musculoskeletal: Musculoskeletal: Reports back pain Integumentary/Breasts: Skin/Breast: Denies rash PMFSH Social History Social History Alcohol intake: never Substance Use Type: Marijuana Physical Exam Vital Signs: Vital Signs: Last Vital Signs Temp 98.0 F 05/04/24 22:09 Pulse 85 05/04/24 22:09 Resp 16 05/04/24 22:09 BP 157/101 H 05/04/24 22:09 Pulse Ox 98 05/04/24 22:09 O2 Del Method Room Air 05/04/24 22:09 BMI result Body Mass Index 40.4 Const: General: healthy appearing, comfortable, no acute distress, alert and awake Nutritional Appearance: well nourished Orientation/consciousness: patient oriented x3 HEENT: Head: Yes normocephalic and Yes atraumatic Eyes: Eyelids: Yes eyelids normal Conjunctivae: conjunctivae normal Sclerae: sclerae normal Corneas: corneas normal Pupils: Equal, round and reactive pupils present EOM: EOMs intact bilaterally Neck: Neck: Yes full ROM Resp: Effort & Inspection: normal respiratory effort, able to speak in complete sentences and not labored GI: Inspection: No distended Palpation (GI): Soft to palpation, not firm, nontender, no guarding and not rigid Skin: General skin exam: elasticity normal Neuro: General: patient oriented x3 Cranial nerves: Yes Equal, round and reactive pupils present and Yes Bilaterally intact EOM present Cognition (Neuro): normal cognition Course Course Course Narrative: This is a Rapid Medical Examination (RME) performed by Ino Hernandez PA-C in triage. Full HPI, ROS, assessment and treatment plan per primary provider in the Main ED. 23 yo female here for eval of vaginal swelling, itching, and dysuria x3 days. reports recurrent yeast infections, states this feels similar. no fevers/ chills. no flank pain. sexually active. + well appearing, abd soft, nd/nt. no cvat. Plan: UA, CTNG Medications Administered Discontinued Medications Generic Name Dose Route Start Last Admin Trade Name Haley PRN Reason Stop Dose Admin Fluconazole 150 mg 05/04/24 20:40 05/04/24 20:45 Fluconazole 150 Mg Tablet PO 05/04/24 20:41 150 mg ONCE ONE Administration Nitrofurantoin Macrocrystals 100 mg 05/04/24 21:59 05/04/24 22:06 Nitrofurantoin Monohyd/M-Cryst 100 Mg Capsule PO 05/04/24 22:00 100 mg ONCE ONE Administration Medical Decision Making Medical Decision Making [facility] Narrative: 23-year-old female presents for evaluation of vaginal itching, discharge and abdominal pain. I reviewed her workup from 2 days ago, labs are reassuring. She did appear to have a UTI 2 days ago, but again left without being seen. The patient provided no urinalysis today, this is sent for gonorrhea and chlamydia as well. We will swab the patient for BV panel. She is nontoxic appearing, low suspicion for PID. Given the patient is a diabetic, was recently on antibiotics yeast infection is most likely, we will treat the patient for vaginal candidiasis with Diflucan x1 dose we will discharge her with a in a dose of take in 1 week Differential Diagnosis Differential Diagnoses: The differential diagnosis associated with the presentation includes UTI Candidiasis Gonorrhea Chlamydia Bacterial vaginosis Lab Data Labs: Lab Results 05/04/24 05/04/24 05/04/24 Range/Units 18:55 20:03 20:45 Urine Color Yellow Urine Appearance Cloudy Urine pH 5.5 (5.0-9.0) Ur Specific [place] >= 1.030 H (1.005-1.025) Urine Protein Negative (Neg-Trace) mg/dL Urine Glucose (UA) >=1000 H (Negative) mg/dL Urine Ketones Trace (Negative) mg/dL Urine Blood Negative (Negative) Urine Nitrite Negative (Negative) Ur Leukocyte Esterase Small (1+) H (Negative) Urine RBC 0-2 (0-2) /HPF Urine WBC 6-10 H (0-5) /HPF Ur Squamous Epith Cells 11-20 (0-2) /HPF Urine Bacteria 4+ (None Seen) Hyaline Casts 6-10 (0-2) /LPF Urine Test NEGATIVE (NEGATIVE) Chlam trachomat DNA PCR NOT DETECTED (Not Detect.) N.gonorrhoeae DNA (PCR) NOT DETECTED (Not Detect.) T. vaginalis (PCR) NOT DETECTED (Not Detect) Bact Vaginosis (PCR) NEGATIVE (Negative) C. krusei/glabrata (PCR) NOT DETECTED (Not Detect) Deisi group (PCR) DETECTED A (Not Detect) Discharge Plan Discharge Clinical Impression: UTI (urinary tract infection), Candidiasis Patient Disposition: Home, Self-Care Instructions: Urinary Tract Infection in Women (ED), Yeast Infection (ED) Additional Instructions: Take Macrobid twice daily for the next 5 days Take the Diflucan 1 dose, 1 week from today Follow-up with doctors are be for OBGYN Return for new or worsening symptoms We will call you if any of the remaining test result positive Prescriptions: New nitrofurantoin monohyd/m-cryst [Macrobid] 100 mg capsule 100 mg PO Q12H 5 Days Qty: 10 0RF Rx Instructions: must administer with a meal/food fluconazole [Diflucan] 100 mg tablet 100 mg PO ONCE Qty: 1 0RF No Action fluconazole 150 mg tablet 150 mg PO DAILY 3 Days Qty: 3 0RF Rx Instructions: administer on day 1 of therapy ondansetron 4 mg tablet,disintegrating 4 mg PO Q6-8H PRN (Reason: nausea and vomiting) Qty: 14 0RF ondansetron 4 mg tablet,disintegrating 4 mg PO DAILY PRN (Reason: nausea and vomiting) 5 Days Qty: 10 0RF benzonatate 100 mg capsule 100 mg PO TID PRN (Reason: cough) Qty: 20 0RF doxycycline hyclate 100 mg tablet 100 mg PO BID 7 Days Qty: 14 0RF Referrals: Tanner Fallon MD [Physician] - (PROCEDURE WRITER follow up) Interventions: ED Discharge Assessment Last Done: 05/04/24 22:09 Discharge Date/Time: 05/04/24 22:10 Print Language: Khmer
[2024-05-04 19:37] LABS: UPreg QC Valid YES; Urine Pregnancy NEGATIVE (NEGATIVE)
[2024-05-04 19:38] LABS: Appearance Urine Cloudy; Color Urine Yellow; Glucose Urine UA >=1000 mg/dL (Negative); Leukocyte Esterase Urine Small (1+) (Negative); Nitrite Urine Negative (Negative); PH 5.5 (5.0-9.0); Specific Gravity - Urine >= 1.030 (1.005-1.025); UMIC TRIGGER UACC YES; Urine Blood Negative (Negative); Urine Ketones Trace mg/dL (Negative); Urine Protein Negative (Neg-Trace)
[2024-05-04] MEDS: Fluconazole 150 MG TABLET PO (20:45)
[2024-05-04 20:56] LABS: RBC Urine 0-2 /HPF (0-2)
[2024-05-04 20:57] LABS: Bacteria Urine 4+ (None Seen); UACC Culture Trigger YES
[2024-05-04 22:03] VITALS: BP 157/101; PULSE 85; RESP 16; TEMP 36.7; O2SAT 98
[2024-05-04] MEDS: Nitrofurantoin Monohyd/M-Cryst 100 MG CAPSULE PO (22:06)
[2024-05-04 22:09] VITALS: BP 157/101; PULSE 85; RESP 16; TEMP 36.7; O2SAT 98
[2024-05-05 13:11] LABS: Bacterial Vaginosis PCR NEGATIVE (Negative); Candida Group PCR DETECTED (Not Detect); Candida glab krusei PCR NOT DETECTED (Not Detect); Trichomonas vaginalis PCR NOT DETECTED (Not Detect)
[2024-05-05 14:19] LABS: CT PCR NOT DETECTED (Not Detect.); NG PCR NOT DETECTED (Not Detect.)
== END 2024-05-04 22:10 | disposition home or self-care (01) ==
PROVIDERS: Physician Assistant; Physician Assistant Medical; Emergency Provider Student in an Organized Health Care Education/Training Program
DX: N39.0 Urinary tract infection, site not specified (principal); B37.31 Acute candidiasis of vulva and vagina; N92.6 Irregular menstruation, unspecified; R10.30 Lower abdominal pain, unspecified; L29.2 Pruritus vulvae; Z79.899 Other long term (current) drug therapy
CPT/HCPCS: 0352U; 81001; 81003; 81025; 87086; 87491; 87591; 99283

== ENCOUNTER 2024-05-22 19:47 | Emergency (ER) | payer OTHER, SELFPAY ==
--- NOTE | ~2024-05-22 | XR_ITS ---
EXAMINATION: XR CHEST CLINICAL INFORMATION: Productive cough COMPARISON: Chest x-ray July 08, 2023 TECHNIQUE: 2 views of the chest were obtained. FINDINGS: No significant abnormality is noted involving the heart, lungs, mediastinum, bony thorax or soft tissues. XR/XR chest 2V IMPRESSION: Unremarkable examination. Electronically signed by: Stephan Johnson MD 05/22/2024 09:36 PM EDT RP
[2024-05-22 19:53] VITALS: BP 139/95; PULSE 92; RESP 18; TEMP 37.1; O2SAT 97; BMI 38.7
--- NOTE | 2024-05-22 19:56 | ED.GENADULT ---
HPI - General Adult General Chief complaint: General Medical Stated complaint: yeast infection, cough, asthmatic Time Seen by Provider: 05/22/24 22:45 Source: patient and family Mode of arrival: ambulatory Limitations: no limitations History of Present Illness ED Provider: Dr. Oliva HPI narrative: Patient presents with cough for a few weeks, denies fever or shortness of breath and vaginal itching. Patient has not been compliant with her diet and her diabetes medication. She states that the diflucan helped her initially but it is back, but her sugars have been running high Onset (ago): week(s) Severity: mild Related Data Previous Rx's ?Medication ?Instructions ?Recorded benzonatate 100 mg capsule 100 mg PO TID PRN cough #20 caps 07/08/23 ondansetron 4 mg disintegrating 4 mg PO DAILY PRN nausea and 07/08/23 tablet vomiting 5 days #10 tabs fluconazole 150 mg tablet 150 mg PO DAILY 3 days #3 tabs 07/24/23 ondansetron 4 mg disintegrating 4 mg PO Q6-8H PRN nausea and 09/01/23 tablet vomiting #14 tabs doxycycline hyclate 100 mg tablet 100 mg PO BID 7 days #14 tabs 03/11/24 fluconazole 100 mg tablet 100 mg PO ONCE #1 tab 05/04/24 (Diflucan) nitrofurantoin 100 mg PO Q12H 5 days #10 caps 05/04/24 monohydrate/macrocrystals 100 mg capsule (Macrobid) fluconazole 150 mg tablet 150 mg PO DAILY #2 tabs 05/22/24 [id number] 5 10 ml PO Q4H PRN cough #473 mL 05/22/24 mg-10 mg-100 mg/5 mL oral liquid Allergies Allergy/AdvReac Type Severity Reaction Status Date / Time acetaminophen Allergy Hives Verified 05/22/24 19:56 amoxicillin Allergy Anaphylaxis Verified 05/22/24 19:56 codeine Allergy Anaphylaxis Verified 05/22/24 19:56 Penicillins Allergy Anaphylaxis Verified 05/22/24 19:56 Review of Systems Review of Systems: Yes all other systems are reviewed and are negative Neurologic: Denies Sensory deficit (Neuro) PMFSH Social History Social History Alcohol intake: never Smoked in Last 30 Days: No Use of substances other than those prescribed or required for medical reasons: No Substance Use Type: Marijuana Advance Directives: No Advance Directives Information Provided: No Do you have a plan to hurt others: No Plan Physical Exam ED Vital Signs: Vital Signs - 24 hr 05/22/24 19:53 05/22/24 23:07 Temperature 98.8 F Pulse Rate 92 92 Respiratory Rate 18 16 Blood Pressure 139/95 H 177/111 H Pulse Oximetry 97 96 Oxygen Delivery Method Room Air Room Air BMI result Body Mass Index 38.7 Const General: healthy appearing Nutritional Appearance: obese Orientation/consciousness: oriented to person and patient oriented x3 Limitations: no limitations HENMT Head: Yes normal to inspection Ears: external ears normal General nose exam: Normal external nose present Mouth: Normal oral and palatal mucosa present and oropharynx normal Throat: Yes posterior oropharynx normal Eyes General: appearance normal, both eyes and all related structures Neck Neck: Yes normal visual inspection Chest Chest palpation & inspection: normal inspection of the chest Resp Other: no wheezing or rales Auscultation: clear to auscultation bilaterally Cardio Jugular venous distension: no JVD Rate: regular rate Rhythm: regular rhythm Heart sounds: S1 normal heart sound present and S2 normal heart sound present GI Inspection: Yes normal to inspection Palpation (GI): Soft to palpation, nontender and No hepatosplenomegaly present Auscultation: normal bowel sounds General: Yes no CVA tenderness Back/Spine/Pelvis Back: no CVA tenderness Skin General skin exam: no rashes or lesions noted Neuro General: oriented to person and patient oriented x3 Cranial nerves: Yes CN's II-XII intact bilaterally Motor exam (neuro): 5/5 motor strength present throughout Sensory Exam: No Sensory deficit (Neuro) Extrem General: Yes normal to inspection Psych Appearance: grossly normal Course Course Course Narrative: This is a Rapid Medical Examination (RME) performed by Ino Hernandez PA-C in triage. Full HPI, ROS, assessment and treatment plan per primary provider in the Main ED. 23 yo female here for multiple complaints. reports vaginal itching x3 weeks, seen in ED 3 wks ago, prescribed fluconazole without improvement. also reports cough productive of green sputum and wheezing x4 days. hx of asthma, using inhaler at home without relief. + lunsg clear. coughing. Plan: viral serology, cxr, UA Reevaluation(s) Reevaluation #1: Patient with likely viral URI, in addition her candidiasis is likely back from he elevated sugars Time: 23:18 Medications Administered Discontinued Medications Generic Name Dose Route Start Last Admin Trade Name Haley PRN Reason Stop Dose Admin Guaifenesin 10 ml 05/22/24 22:58 05/22/24 23:04 Guaifenesin 200 Mg/10 Ml 10 Ml Liquid PO 05/22/24 22:59 10 ml ONCE ONE Administration Medical Decision Making Differential Diagnosis Differential Diagnoses: The differential diagnosis associated with the presentation includes (pneumonia, covid, rsv, influenza, UTI, candidais, gc, chlamydia) Admission/Observation Consideration of admission/observation: Escalation of care including admission/observation considered (upon arrival admission was considered) Lab Data Labs: Lab Results 05/22/24 05/22/24 Range/Units 20:19 23:07 POC Glucose 382 H* (60-115) mg/dL Urine Color [place] [employer] A Urine Appearance Cloudy Urine pH 5.5 (5.0-9.0) Ur Specific [place] >= 1.030 H (1.005-1.025) Urine Protein Trace (Neg-Trace) mg/dL Urine Glucose (UA) >=1000 H (Negative) mg/dL Urine Ketones Negative (Negative) mg/dL Urine Blood Large (3+) H (Negative) Urine Nitrite Negative (Negative) Ur Leukocyte Esterase Negative (Negative) Urine RBC >20 H (0-2) /HPF Urine WBC 0-5 (0-5) /HPF Ur Squamous Epith Cells 0-2 (0-2) /HPF Urine Bacteria None Seen (None Seen) Hyaline Casts 0-2 (0-2) /LPF Urine Test NEGATIVE (NEGATIVE) Influenza Type A (PCR) NEGATIVE (Negative) Influenza Type B (PCR) NEGATIVE (Negative) RSV RNA Qual (PCR) NEGATIVE (Negative) SARS-CoV-2 RNA (RT-PCR) NEGATIVE (Negative) Independent Interpretation I performed an independent interpretation of an: Plain X-Ray (CXR: no infiltrate) Independent Historian Clinical information obtained from an independent historian. History obtained from or confirmed by: Friend Prescription Management I considered prescription management with: Antibiotic (no pneumonia or UTI seen will not give ABX ) Chronic Conditions Patient?s care impacted by: Diabetes Social Determinants Patient?s care significantly limited by Social Determinants of Health including: Low income Discharge Plan Discharge Clinical Impression: Hyperglycemia due to diabetes mellitus, Candidiasis of vagina, Acute upper respiratory infection Patient Disposition: Home, Self-Care Instructions: Upper Respiratory Infection (ED), Yeast Infection (ED), Diabetic Hyperglycemia (ED) Prescriptions: New fluconazole 150 mg tablet 150 mg PO DAILY Qty: 2 0RF Rx Instructions: 1 tablet now and one in one week. You must keep your sugars under control [id number] 5-10-100 mg/5 mL liquid 10 ml PO Q4H PRN (Reason: cough) Qty: 473 0RF No Action fluconazole 150 mg tablet 150 mg PO DAILY 3 Days Qty: 3 0RF Rx Instructions: administer on day 1 of therapy ondansetron 4 mg tablet,disintegrating 4 mg PO Q6-8H PRN (Reason: nausea and vomiting) Qty: 14 0RF ondansetron 4 mg tablet,disintegrating 4 mg PO DAILY PRN (Reason: nausea and vomiting) 5 Days Qty: 10 0RF benzonatate 100 mg capsule 100 mg PO TID PRN (Reason: cough) Qty: 20 0RF doxycycline hyclate 100 mg tablet 100 mg PO BID 7 Days Qty: 14 0RF nitrofurantoin monohyd/m-cryst [Macrobid] 100 mg capsule 100 mg PO Q12H 5 Days Qty: 10 0RF Rx Instructions: must administer with a meal/food fluconazole [Diflucan] 100 mg tablet 100 mg PO ONCE Qty: 1 0RF Print Language: Slovak
[2024-05-22 20:41] LABS: UPreg QC Valid YES; Urine Pregnancy NEGATIVE (NEGATIVE)
[2024-05-22 20:51] LABS: Appearance Urine Cloudy; Color Urine Orange; Glucose Urine UA >=1000 mg/dL (Negative); Leukocyte Esterase Urine Negative (Negative); Nitrite Urine Negative (Negative); PH 5.5 (5.0-9.0); Specific Gravity - Urine >= 1.030 (1.005-1.025); UMIC TRIGGER UACC YES; Urine Blood Large (3+) (Negative); Urine Ketones Negative (Negative); Urine Protein Trace mg/dL (Neg-Trace)
[2024-05-22 20:52] LABS: Bacteria Urine None Seen (None Seen); Hyaline Casts Urine 0-2 /LPF (0-2); RBC Urine >20 /HPF (0-2); Squamous Epithelial Cell Urine 0-2 /HPF (0-2); WBC Urine 0-5 /HPF (0-5)
[2024-05-22 21:18] LABS: Influenza A PCR NEGATIVE (Negative); Influenza B PCR NEGATIVE (Negative); Resp Syncy Virus RNA Qual PCR NEGATIVE (Negative); SARS COV2 PCR INHOUSE NEGATIVE (Negative)
[2024-05-22] MEDS: guaiFENesin 200 MG/10 ML 10 ML LIQUID PO (23:04)
[2024-05-22 23:07] VITALS: BP 177/111; PULSE 92; RESP 16; O2SAT 96
[2024-05-22 23:10] LABS: Glucose, Whole Blood 382 mg/dL (60-115)
--- NOTE | 2024-05-22 23:19 | PC.NURSE ---
This RN assumed pt care @2300. Pt a&ox4, no signs of distress. Pt ambulates with a steady gait to restroom. Family @ bedside Plan of care ongoing
[2024-05-22] MEDS: Insulin Lispro 100 UNIT/ML 3 ML VIAL 10 UNIT SUBCUT (23:39)
--- NOTE | 2024-05-22 23:41 | PC.NURSE ---
Provider notified and aware of pts b/p 177/111. No new orders at this time.
[2024-05-22 23:45] VITALS: BP 177/111; PULSE 92; RESP 16; TEMP 37; O2SAT 96
[2024-05-23 01:09] LABS: CT PCR NOT DETECTED (Not Detect.); NG PCR NOT DETECTED (Not Detect.)
== END 2024-05-22 23:48 | disposition home or self-care (01) ==
PROVIDERS: Physician Assistant Medical; Emergency Provider Emergency Medicine
DX: B37.31 Acute candidiasis of vulva and vagina (principal); L29.9 Pruritus, unspecified; J06.9 Acute upper respiratory infection, unspecified; E11.65 Type 2 diabetes mellitus with hyperglycemia; R05.9 Cough, unspecified; Z79.899 Other long term (current) drug therapy; R06.2 Wheezing; Z03.818 Encounter for observation for suspected exposure to other biological agents ruled out
CPT/HCPCS: 0241U; 71046; 81001; 81025; 82947; 87491; 87591; 99283; 99284

== ENCOUNTER 2024-05-24 15:43 | Outpatient (AMB) | payer OTHER, SELFPAY ==
--- NOTE | 2024-05-24 15:48 | A.OFFVIS_ITS ---
Vital Signs 05/24/24 15:53 Height 5 ft Weight 200 lb 9.93 oz BMI 39.2 BP 156/100 H Blood Pressure Location Rt brachial Position Sitting Pulse 95 Pulse Source Pulse Oximeter Intake Visit Reasons: Type 2 DM Intake Note: NEW Patient presents today to establish treatment for Type 2 Diabetes Mellitus: Last Diabetic eye exam was on: DUE Last Podiatry exam was on: Does not see a Machine Rebuilder Most recent HbA1c: 10.5%, 05/24/2024 Random Glucose- 324 mg/dL, Today Nib Adjuster Required: No Accompanied by: Self / Same As Patient Allergies acetaminophen Allergy (Verified 05/24/24 15:55) Hives amoxicillin Allergy (Verified 05/24/24 15:55) Anaphylaxis codeine Allergy (Verified 05/24/24 15:55) Anaphylaxis Penicillins Allergy (Verified 05/24/24 15:55) Anaphylaxis HPI Comments Details: [23] YO [M/F] who is seen in consultation for T2DM at the request of PCP. Initially diagnosed with T2DM at age 15. Was initially started on treatment with [insulin and metformin]. Current regimen [has been off insulin for 2-3 months had been on Trulicity which had worked well]. She previously had been on Lantus 30 units and humalog 5-10 which she has not been taking Checks sugars [1] times per day. Average sugar: 266 NO recent low sugars but does have symptoms if she is 100-120 Most recent A1C 10.5% on 05/24/24 [Denies ] neuropathy [Denies] nephropathy, not on [JUAN/ARB]. recent eGFR >60 NO recent lipid profile [Denies] CAD. [facility] Medical History (Updated 05/24/24 @ 16:45 by Shara Low NP) Hypertension Surgical History (Updated 05/24/24 @ 16:20 by LIZBETH Rios) No pertinent past surgical history Social History Alcohol intake: never Substance Use Type: Marijuana Physical Exam Vital Signs: Last Vital Signs Pulse 95 05/24/24 15:53 BP 156/100 H 05/24/24 15:53 BMI result Body Mass Index 39.2 Absence of Cushingoid features. Absence of acromegalic features. Neck exam reveals nl size thyroid about 15 gms. No thyroid nodules palpable. No carotid bruits present. Lungs CTA. Heart S1 S2, Reg R/R. No M/R/ G. Skin exam reveals absence of vitiligo or acanthosis nigricans. Abdominal exam reveals Soft NT/ND with NA BS. No organomegaly present. Const Other: Absence of Cushingoid features. Absence of acromegalic features. Neck exam reveals nl size thyroid about 15 gms. No thyroid nodules palpable. No carotid bruits present. Lungs CTA. Heart S1 S2, Reg R/R. No M/R G. Skin exam reveals absence of vitiligo or acanthosis nigricans. No edema Visual exam of foot performed. No ulcerations or open lesions. No inter digit maceration or fissuring. No onychomycosis, no callouses. Sensation intact to monofilament exam. Vibratory sensation is normal with 128 Hz tuning fork. Neck Other: . Extrem Other: Visual exam of foot performed. No ulcerations or open lesions. No onchomycosis, no callouses.Pulses 2 + distally Sensation intact to monofilament exam. Vibratory sensation sensed is intact with 128 Hz tuning fork Results AMB Hemoglobin A1c AMB Hemoglobin A1c 10.5 % Last Edit by LIZBETH Rios on 05/24/24 16:1 2 Results Reviewed Results Reviewed: Laboratory Last Values Glucose (Clinic) 324 mg/dL (60-115) H 05/24/24 16:00 Hgb A1c (Clinic) 10.5 % (4.0-6.0) H 05/24/24 16:07 Laboratory Tests 05/01/24 15:07 Estimated GFR > 60 Random Glucose 263 H Assessment & Plan Assessment & Plan (1) Type 2 diabetes mellitus: Code(s): E11.9 - Type 2 diabetes mellitus without complications Category: Medical Plan: 23-year-old diabetic with poor glycemic control off insulin for several months. She is symptomatic if she runs 100-120. We will restart Lantus and Trulicity 0.75 mg weekly. He will see her back within the month for additional titration we will order lab work to determine type 1 versus type 2 Orders: Orders AMB Hemoglobin A1c 05/24/24 E11.9 - Type 2 diabetes mellitus without complications Medications: New metformin ER 1,000 mg (2 x 500 mg) PO BID 120 tabs 3RF 30 days E11.9 - Type 2 diabetes mellitus without complications metformin ER 1,000 mg (2 x 500 mg) PO BID 120 tabs 3RF 30 days E11.9 - Type 2 diabetes mellitus without complications blood sugar diagnostic (FreeStyle Lite Strips) As directed bid 100 ea 11RF E11.9 - Type 2 diabetes mellitus without complications lancets (Fingerstix Lancets) As directed twice daily for use with freestyle meter 100 ea 6RF dulaglutide (Trulicity) 0.75 mg (0.5 mL) subcut QWEEK 2 mL 2RF 28 days insulin glargine (Lantus Solostar U-100 Insulin) 10 units (0.1 mL) subcut QPM 3 mL 11RF 30 days E11.9 - Type 2 diabetes mellitus without complications lisinopril 10 mg PO DAILY 30 tabs 3RF 30 days I10 - Essential (primary) h ypertension pen needle, diabetic (BD Lora 2nd Gen Pen Needle) As directed daily 100 ea 6RF E11.9 - Type 2 diabetes mellitus without complications Discontinued ondansetron Discontinued Reason: Doctor's Order 4 mg PO DAILY 5 days PRN 10 tabs 0RF nausea and vomiting fluconazole Discontinued Reason: Doctor's Order 100 mg PO ONCE 1 tab 0RF doxycycline hyclate Discontinued Reason: Doctor's Order 100 mg PO BID 7 days 14 tabs 0RF nitrofurantoin monohyd/m-cryst 100 mg must administer with a meal/food Discontinued Reason: Doctor's Order 100 mg PO Q12H 5 days 10 caps 0RF Patient Instructions: The patient was counseled to achieve a target A1C of 7% (154 avg). Fasting blood sugars should be 90-130 in the morning and less than 180 two hours after meals. Reviewed the relationship between poor diabetic control and the developement of complications Coding Level of Care Code New Pt Level 4 (72093) Diagnoses Type 2 diabetes mellitus E11.9 Time Spent (min) 40 Comment Time spent reviewing labs/provider notes, face to face, chart doc
[2024-05-24 15:53] VITALS: BP 156/100; PULSE 95; BMI 39.2
[2024-05-24 16:03] LABS: Glucose, Whole Blood 324 mg/dL (60-115)
== END 2024-05-24 16:36 | disposition home or self-care (01) ==
PROVIDERS: Visit Provider Nurse Practitioner Adult Health
DX: E11.9 Type 2 diabetes mellitus without complications (principal)
CPT/HCPCS: 99204

== ENCOUNTER → 2024-05-24 15:43 | Outpatient (BNVA) | payer OTHER, SELFPAY | PROVIDERS: Visit Provider Nurse Practitioner Adult Health | DX: E11.9 Type 2 diabetes mellitus without complications (principal); I10 Essential (primary) hypertension | CPT/HCPCS: 82947; 83036; 99202 ==

== ENCOUNTER 2024-07-04 14:46 | Outpatient (AMB) | payer OTHER, SELFPAY ==
--- NOTE | 2024-07-04 08:42 | A.OFFVIS_ITS ---
Vital Signs 07/04/24 14:50 Height 5 ft Weight 211 lb 10.3 oz BMI 41.3 BP 160/110 H Blood Pressure Location Lt brachial Position Sitting Pulse 112 H Pulse Source Pulse Oximeter Intake Visit Reasons: Type 2 DM Intake Note: Patient presents today for [facility] follow up visit. 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 She was last seen on 05/24/24 at which insulin was restarted. Hemoglobin A1C was 10.5% on 05/24/24. Fasting labs were ordered at last visit which were not done. Initially diagnosed with T2DM at age 15. Was initially started on treatment with insulin and metformin. Current regimen: Lantus 50 units Trulicity 0.75mg weekly Metformin ER 1000mg twice daily (some stomach issue with this) Due for period one week ago. Checks sugars 2-3 times per day. am readings 220-225 12:30-1pm before lunch 160-170's, after eating it shoots up to 300-350. before hs same N0 recent low sugars but does have symptoms if she is 100-120 Denies neuropathy. No numbness, tingling, pain or cramping in the lower extremity Denies nephropathy, on JUAN. 05/01/2024 eGFR >60 no recent microalbumin NO recent lipid profile [Denies] CAD. No recent diabetes education [facility] Medical History Hypertension Surgical History No pertinent past surgical history Social History Alcohol intake: never Substance Use Type: Marijuana Advance Directives: No Advance Directives Information Provided: No Physical Exam Vital Signs: Last Vital Signs Pulse 112 H 07/04/24 14:50 BP 160/110 H 07/04/24 14:50 BMI result Body Mass Index 41.3 Const Other: Absence of Cushingoid features. Absence of acromegalic features. Neck exam reveals nl size thyroid about 15 gms. No thyroid nodules palpable. No carotid bruits present. Lungs CTA. Heart S1 S2, Reg R/R. No M/R G. Skin exam reveals absence of vitiligo or acanthosis nigricans. No edema Visual exam of foot performed. No ulcerations or open lesions. No inter digit maceration or fissuring. No onychomycosis, no callouses. Sensation intact to monofilament exam. Vibratory sensation is normal with 128 Hz tuning fork. Results Reviewed Results Reviewed: Laboratory Last Values Glucose (Clinic) 265 mg/dL (60-115) H 07/04/24 14:59 Assessment & Plan Assessment & Plan (1) Type 2 diabetes mellitus: Code(s): E11.9 - Type 2 diabetes mellitus without complications Category: Medical Plan: 23-year-old with type 2 diabetes poor glycemic control and compliance with no known micro/macrovascular complications. Blood work has been ordered to check lipid profile and determine type 1 versus type 2 along with urine for microalbumin. INsulin adjusted The patient had an opportunity to ask questions regarding treatment plan. The patient expressed understanding and agreement with the above treatment plan. The patient is aware they should contact our office by phone for worsening glucose readings or for any low blood sugars which may warrant a change in diabetes medication. Compliance is encouraged with medications and any followup testing/consults which may have been ordered. Orders: Orders HCG Quantitative 07/04/24 Z34.90 - Encounter for supervision of normal , unspecified, unspecified trimester Medications: New insulin lispro 6 units (0.06 mL) subcut TID 5.4 mL 6RF 30 days insulin lispro before meals 6 units (0.06 mL) subcut TID 6 mL 6RF 30 days flash glucose sensor (FreeStyle Wilberto 2 Sensor kit) As directed every 14 days 2 ea 10RF Changed From insulin glargine 10 units (0.1 mL) subcut QPM 30 days 3 mL 11RF E11.9 - Type 2 diabetes mellitus without complications To insulin glargine (Lantus Solostar U-100 Insulin) 50 units (0.5 mL) subcut QPM 18 mL 11RF 30 days E11.9 - Type 2 diabetes mellitus without complications From insulin glargine 50 units (0.5 mL) subcut QPM 30 days 18 mL 11RF E11.9 - Type 2 diabetes mellitus without complications To insulin glargine (Lantus Solostar U-100 Insulin) 50 units (0.5 mL) subcut QPM 18 mL 11RF 30 days E11.9 - Type 2 diabetes mellitus without complications From pen needle, diabetic As directed daily 100 ea 6RF E11.9 - Type 2 diabetes mellitus without complications To pen needle, diabetic (BD Lora 2nd Gen Pen Needle) qid 200 ea 6RF E11.9 - Type 2 diabetes mellitus without complications Patient Instructions: The patient was counseled to achieve a target A1C of 7% (154 avg). Fasting blood sugars should be 90-130 in the morning and less than 180 two hours after meals. Reviewed the relationship between poor diabetic control and the development of complications. The patient was counseled to always carry a source of sugar and on the rule of 15's: Take 3 glucose tablets and repeat again in 15 minutes if blood sugar is not in normal range. Continue to repeat every 15 minutes until blood sugar is n ormal. Wear closed toe shoes, never walk barefooted and inspect the feet daily. For any signs of infection or open wound patient you should notify your PCP or go to urgent care/ER. The patient was counseled to always carry a source of sugar and on the rule of 15's: Take 3 glucose tablets and repeat again in 15 minutes if blood sugar is not in normal range. Continue to repeat every 15 minutes until blood sugar is normal. Coding Level of Care Code Est Pt Level 4 (54222) Complex EM visit Add On G2211 Diagnoses Type 2 diabetes mellitus E11.9 Time Spent (min) 30 Comment Time spent reviewing labs/provider notes, face to face, chart doc
[2024-07-04 14:50] VITALS: BP 160/110; PULSE 112; BMI 41.3
[2024-07-04 15:03] LABS: Glucose, Whole Blood 265 mg/dL (60-115)
== END 2024-07-04 15:32 | disposition home or self-care (01) ==
LOC: HO.ENCR 14:46
PROVIDERS: Visit Provider Nurse Practitioner Adult Health
DX: E11.9 Type 2 diabetes mellitus without complications (principal)
CPT/HCPCS: 99214; G2211

== ENCOUNTER 2024-07-04 14:46 | Outpatient (REF) | payer OTHER, SELFPAY ==
[2024-07-04 17:42] LABS: Cholesterol 207 mg/dL (<200); HDL Cholesterol 37 mg/dL (>40); Triglycerides 448 mg/dL (<150)
[2024-07-04 17:45] LABS: HCG Quantitative < 2 mIU/mL
[2024-07-04 17:53] LABS: Creatinine Urine 214.14 mg/dL
[2024-07-06 01:14] LABS: C Peptide 6.76 ng/mL (0.80-3.85)
[2024-07-08 20:34] LABS: Glutamic acid decarboxylase Ab <5 IU/mL (<5)
[2024-07-14 00:58] LABS: Islet Cell Antibody Screen NEGATIVE (NEGATIVE)
== END 2024-07-04 14:47 | disposition home or self-care (01) ==
LOC: HO.LAB 14:46
PROVIDERS: Visit Provider Nurse Practitioner Adult Health
DX: E11.9 Type 2 diabetes mellitus without complications (principal); Z34.90 Encounter for supervision of normal pregnancy, unspecified, unspecified trimester
CPT/HCPCS: 36415; 80061; 82043; 82570; 82947; 84681; 84702; 86341

== ENCOUNTER 2024-07-21 12:06 | Emergency (ER) | payer OTHER, SELFPAY ==
[2024-07-21 12:28] VITALS: BP 178/113; PULSE 112; RESP 18; TEMP 36.8; O2SAT 100; BMI 43.2
--- NOTE | 2024-07-21 12:28 | ED.GENADULT ---
HPI - General Adult General Chief complaint: Abdominal Pain Stated complaint: vomiting Time Seen by Provider: 07/21/24 15:23 Related Data Previous Rx's ?Medication ?Instructions ?Recorded benzonatate 100 mg capsule 100 mg PO TID PRN cough #20 caps 07/08/23 fluconazole 150 mg tablet 150 mg PO DAILY #2 tabs 05/22/24 hhaoppevgdzlo-QQ-gqbxhzzsluj 5 10 ml PO Q4H PRN cough #473 mL 05/22/24 mg-10 mg-100 mg/5 mL oral liquid blood sugar diagnostic (FreeStyle #100 ea 05/24/24 Lite Strips) dulaglutide 0.75 mg/0.5 mL 0.75 mg (0.5 mL) subcut QWEEK 28 05/24/24 subcutaneous pen injector days #2 mL (Trulicity) lancets (Fingerstix Lancets) #100 ea 05/24/24 lisinopril 10 mg tablet 10 mg PO DAILY 30 days #30 tabs 05/24/24 metformin 500 mg tablet,extended 1,000 mg (2 x 500 mg) PO BID 30 05/24/24 release 24 hr days #120 tabs flash glucose sensor (FreeStyle #2 ea 07/04/24 Wilberto 2 Sensor kit) insulin glargine 100 unit/mL (3 50 unit (0.5 mL) subcut QPM 30 07/04/24 mL) subcutaneous pen (Lantus days #18 mL Solostar U-100 Insulin) pen needle, diabetic 32 gauge x #200 ea 07/04/24 5/32 (BD Lora 2nd Gen Pen Needle) insulin lispro 100 unit/mL 6 unit (0.06 mL) subcut TID 30 07/05/24 subcutaneous pen days #6 mL Allergies Allergy/AdvReac Type Severity Reaction Status Date / Time acetaminophen Allergy Hives Verified 07/21/24 12:31 amoxicillin Allergy Anaphylaxis Verified 07/21/24 12:31 codeine Allergy Anaphylaxis Verified 07/21/24 12:31 Penicillins Allergy Anaphylaxis Verified 07/21/24 12:31 [facility] Past Medical History Medical History (Updated 07/21/24 @ 16:10 by YAJAIRA Dunn) Hypertension Surgical History No pertinent past surgical history Social History Social History Alcohol intake: never Smoked in Last 30 Days: No Use of substances other than those prescribed or required for medical reasons: No Substance Use Type: Marijuana Advance Directives: No Advance Directives Information Provided: No Patient : No Physical Exam ED Vital Signs: Vital Signs - 24 hr 07/21/24 12:28 07/21/24 15:28 Temperature 98.2 F 98.4 F Pulse Rate 112 H 102 H Respiratory Rate 18 16 Blood Pressure 178/113 H 150/102 H Pulse Oximetry 100 99 Oxygen Delivery Method Room Air Room Air BMI result Body Mass Index 43.2 Course Course Course Narrative: This is an RME performed by Bruna Fernandez CNP: Additional HPI, ROS, PE not included below will be deferred to primary provider. Patient is a 23-year-old female who presents emergency department for evaluation. She states she has been experiencing approximately 3-4 days of left lateral abdominal pain radiating to the lower abdomen with associated nausea and vomiting 3 times daily in the AM and HS, tolerates oral intake during the day, 2-3 episodes of soft/watery diarrhea daily. She states that about a week and a half ago she took a test and she noticed a faint positive line. However she was taken this morning and it appears to be negative. Denies vaginal bleeding. She does admit to vaginal discharge. Denies dysuria, urinary frequency/urgency/hesitancy. Denies concern for sexually transmitted infections. Plan: Serum labs, urinalysis, hCG Reevaluation(s) Reevaluation #1: The patient left the exam room without completing her assessment Time: 16:09 Medical Decision Making Lab Data 07/21/24 12:46 07/21/24 12:46 Labs: Lab Results 07/21/24 07/21/24 07/21/24 Range/Units 12:46 12:51 14:47 WBC 13.5 H (4.8-10.8) X10*3/uL RBC 5.09 (4.20-5.50) X10*6/uL Hgb 14.8 (12.0-16.0) g/dl Hct 44.6 (37.0-47.0) % MCV 87.6 (80.0-98.0) fL MCH 29.1 (27.0-33.0) pg MCHC 33.2 (31.0-35.0) g/dl RDW 12.5 (11.0-16.0) % Plt Count 325 (160-400) X10*3/uL MPV 9.4 (9.4-12.3) fL Immature Gran % (Auto) 0.4 (0.0-0.4) % Neut % (Auto) 67.7 (45-73) % Lymph % (Auto) 21.8 (20-40) % [place] % (Auto) 6.3 (2-11) % Eos % (Auto) 3.1 (0-4) % Baso % (Auto) 0.7 (0-2) % Lymph # (Auto) 2.9 (1.2-4.9) X10*3/uL [place] # (Auto) 0.9 (0.1-1.2) X10*3/uL Eos # (Auto) 0.4 (0.0-0.4) X10*3/uL Baso # (Auto) 0.1 (0.0-0.2) X10*3/uL Abs Immat Gran (auto) 0.05 H (0.00-0.03) X10*3/uL Absolute Neuts (auto) 9.1 H (2.0-8.3) x10*3/uL Absolute Nucleated RBC 0.000 (0.0-0.012) X10*3/uL Nucleated RBC % (auto) 0.0 (0.0-0.2) /100WBC Sodium 139 (135-145) mmol/L Potassium 4.0 (3.3-5.1) mmol/L Chloride 106 (96-108) mmol/L Carbon Dioxide 27 (22-29) mmol/L Anion Gap 10 L (12-20) BUN 10 (9-16) mg/dL Creatinine 0.67 (0.5-1.4) mg/dL Estim Creat Clear Calc 133.4 Estimated GFR > 60 POC Glucose 65 (60-115) mg/dL Random Glucose 94 (60-115) mg/dL Calcium 8.9 (8.4-10.2) mg/dL Total Bilirubin 0.9 (0.0-1.0) mg/dL AST 19 (5-31) U/L ALT 20 (0-31) U/L Alkaline Phosphatase 76 (39-117) U/L Total Protein 7.6 (6.5-8.0) g/dL Albumin 4.0 (3.5-5.0) g/dL Lipase 23 (8-78) U/L Urine Color Yellow Urine Appearance Cloudy Urine pH 5.5 (5.0-9.0) Ur Specific [employer] 1.025 (1.005-1.025) Urine Protein Negative (Neg-Trace) mg/dL Urine Glucose (UA) 500 H (Negative) mg/dL Urine Ketones Negative (Negative) mg/dL Urine Blood Negative (Negative) Urine Nitrite Negative (Negative) Ur Leukocyte Esterase Trace H (Negative) Urine RBC 0-2 (0-2) /HPF Urine WBC 6-10 H (0-5) /HPF Ur Squamous Epith Cells >20 (0-2) /HPF Urine Bacteria None Seen (None Seen) Hyaline Casts 0-2 (0-2) /LPF Urine Test NEGATIVE (NEGATIVE) Influenza Type A (PCR) NEGATIVE (Negative) Influenza Type B (PCR) NEGATIVE (Negative) RSV RNA Qual (PCR) NEGATIVE (Negative) SARS-CoV-2 RNA (RT-PCR) NEGATIVE (Negative) Discharge Plan Discharge Clinical Impression: Abdominal pain Patient Disposition: Elopement Prescriptions: No Action benzonatate 100 mg capsule 100 mg PO TID PRN (Reason: cough) Qty: 20 0RF fluconazole 150 mg tablet 150 mg PO DAILY Qty: 2 0RF Rx Instructions: 1 tablet now and one in one week. You must keep your sugars under control [id number]-PV-zgnflubfxbf 5-10-100 mg/5 mL liquid 10 ml PO Q4H PRN (Reason: cough) Qty: 473 0RF Trulicity 0.75 mg/0.5 mL pen injector 0.75 mg subcut QWEEK 28 Days Qty: 2 2RF lisinopril 10 mg tablet 10 mg PO DAILY 30 Days Qty: 30 3RF metformin 500 mg tablet extended release 24 hr 1,000 mg PO BID 30 Days Qty: 120 3RF (DME) FreeStyle Lite Strips Strip See Rx Instructions .Route Qty: 100 11RF Rx Instructions: As directed bid (DME) lancets [Fingerstix Lancets] Misc See Rx Instructions .Route Qty: 100 6RF Rx Instructions: As directed twice daily for use with freestyle meter insulin glargine [Lantus Solostar U-100 Insulin] 100 unit/mL (3 mL) insulin pen 50 unit subcut QPM 30 Days Qty: 18 11RF (DME) pen needle, diabetic [BD Lora 2nd Gen Pen Needle] 32 gauge x 5/32 needle See Rx Instructions .Route Qty: 200 6RF Rx Instructions: qid (DME) FreeStyle Wilberto 2 Sensor Kit See Rx Instructions .ROUTE .MEDSUPPLY Qty: 2 10RF Rx Instructions: As directed every 14 days insulin lispro 100 unit/mL insulin pen 6 unit subcut TID 30 Days Qty: 6 6RF Rx Instructions: before meals Print Language: Danish
[2024-07-21 12:55] LABS: MANUAL DIFF FLAG NO
[2024-07-21 12:57] LABS: Basophils Absolute Auto 0.1 X10*3/uL (0.0-0.2); Basophils Percent Auto 0.7 % (0-2); Eosinophils Absolute Auto 0.4 X10*3/uL (0.0-0.4); Eosinophils Percent Auto 3.1 % (0-4); Hematocrit 44.6 % (37.0-47.0); Hemoglobin 14.8 g/dl (12.0-16.0); Imm Gran Abs Auto 0.05 X10*3/uL (0.00-0.03); Imm Gran Pct Auto 0.4 % (0.0-0.4); Lymphocytes Absolute Auto 2.9 X10*3/uL (1.2-4.9); Lymphocytes Percent Auto 21.8 % (20-40); Mean Corpuscular HGB Conc 33.2 g/dl (31.0-35.0); Mean Corpuscular Hemoglobin 29.1 pg (27.0-33.0); Mean Corpuscular Volume 87.6 fL (80.0-98.0); Mean Platelet Volume 9.4 fL (9.4-12.3); Monocytes Absolute Auto 0.9 X10*3/uL (0.1-1.2); Monocytes Percent Auto 6.3 % (2-11); Neutrophils Absolute Auto 9.1 x10*3/uL (2.0-8.3); Neutrophils Percent Auto 67.7 % (45-73); Platelet Count 325 X10*3/uL (160-400); Red Blood Count 5.09 X10*6/uL (4.20-5.50); Red Cell Distribution Width 12.5 % (11.0-16.0); White Blood Count 13.5 X10*3/uL (4.8-10.8)
[2024-07-21 12:58] LABS: Appearance Urine Cloudy; Color Urine Yellow; Glucose Urine UA 500 mg/dL (Negative); Leukocyte Esterase Urine Trace (Negative); Nitrite Urine Negative (Negative); PH 5.5 (5.0-9.0); Specific Gravity - Urine 1.025 (1.005-1.025); UMIC TRIGGER UACC YES; Urine Blood Negative (Negative); Urine Ketones Negative (Negative); Urine Protein Negative (Neg-Trace)
[2024-07-21 13:00] LABS: Bacteria Urine None Seen (None Seen); Hyaline Casts Urine 0-2 /LPF (0-2); RBC Urine 0-2 /HPF (0-2); Squamous Epithelial Cell Urine >20 /HPF (0-2); UACC Culture Trigger YES; UPreg QC Valid YES; Urine Pregnancy NEGATIVE (NEGATIVE)
[2024-07-21 13:13] LABS: Alanine Aminotransferase 20 U/L (0-31); Alkaline Phosphatase 76 U/L (39-117); Anion Gap 10 (12-20); Aspartate Amino Transferase 19 U/L (5-31); Bilirubin Total 0.9 mg/dL (0.0-1.0); Blood Urea Nitrogen 10 mg/dL (9-16); Calcium 8.9 mg/dL (8.4-10.2); Carbon Dioxide 27 mmol/L (22-29); Chloride 106 mmol/L (96-108); Creatinine Clr Calc Pharmacy 133.4; Estimated Glomerular Filt Rate > 60; Glucose Random 94 mg/dL (60-115); Lipase 23 U/L (8-78); Sodium 139 mmol/L (135-145); Total Protein 7.6 g/dL (6.5-8.0)
[2024-07-21 13:46] LABS: Influenza A PCR NEGATIVE (Negative); Influenza B PCR NEGATIVE (Negative); Resp Syncy Virus RNA Qual PCR NEGATIVE (Negative); SARS COV2 PCR INHOUSE NEGATIVE (Negative)
[2024-07-21 14:51] LABS: Glucose, Whole Blood 65 mg/dL (60-115)
[2024-07-21 15:28] VITALS: BP 150/102; PULSE 102; RESP 16; TEMP 36.9; O2SAT 99
== END 2024-07-21 16:19 | disposition left against medical advice (07) ==
PROVIDERS: Nurse Practitioner Family; Emergency Provider Student in an Organized Health Care Education/Training Program
DX: R10.9 Unspecified abdominal pain (principal); I10 Essential (primary) hypertension; R19.7 Diarrhea, unspecified; R11.2 Nausea with vomiting, unspecified; N89.8 Other specified noninflammatory disorders of vagina; Z03.818 Encounter for observation for suspected exposure to other biological agents ruled out
CPT/HCPCS: 0241U; 80053; 81001; 81025; 82947; 83690; 85025; 87086; 99283; 99284

== ENCOUNTER 2024-08-24 19:28 | Emergency (ER) | payer OTHER, SELFPAY ==
[2024-08-24 19:52] VITALS: BP 153/103; PULSE 104; RESP 20; TEMP 36.7; O2SAT 97; BMI 42.4
--- NOTE | 2024-08-24 19:55 | ED_ITS ---
HPI - Nausea/Vomiting/Diarrhea General Chief complaint: Nausea/Vomiting/Diarrhea Stated complaint: Vomiting, Diabetic Sugar level spiking Time Seen by Provider: 08/24/24 20:18 Source: patient and old records reviewed Mode of arrival: ambulatory Limitations: no limitations History of Present Illness ED Provider: ASHLEY HPI Narrative: 23 yo female with PMH of IDDM, HTN who reports 3 days of n/v intermittent, resolved diarrhea, has no abdominal pain. Denies travel, food exposures, sick contacts here with c/o not feeling well. She was on abx 6 days ago for CAP finished zpak but her diarrhea has stopped. She has not had any fevers, no urinary symptoms. Worried as her sugars have been high 300s to 400s. MD elicited complaint: nausea and vomiting Onset (ago): day(s) (3) Description of vomiting: food contents and watery Associated nausea: Yes Associated abdominal pain: No Severity: moderate Exacerbating factors: eating Relieving factors: none Context: other Related Data Previous Rx's ?Medication ?Instructions ?Recorded benzonatate 100 mg capsule 100 mg PO TID PRN cough #20 caps 07/08/23 fluconazole 150 mg tablet 150 mg PO DAILY #2 tabs 05/22/24 [id number]-[id number]-eanabrkklgx 5 10 ml PO Q4H PRN cough #473 mL 05/22/24 mg-10 mg-100 mg/5 mL oral liquid blood sugar diagnostic (FreeStyle #100 ea 05/24/24 Lite Strips) dulaglutide 0.75 mg/0.5 mL 0.75 mg (0.5 mL) subcut QWEEK 28 05/24/24 subcutaneous pen injector days #2 mL (Trulicity) lancets (Fingerstix Lancets) #100 ea 05/24/24 lisinopril 10 mg tablet 10 mg PO DAILY 30 days #30 tabs 05/24/24 metformin 500 mg tablet,extended 1,000 mg (2 x 500 mg) PO BID 30 05/24/24 release 24 hr days #120 tabs flash glucose sensor (FreeStyle #2 ea 07/04/24 Wilberto 2 Sensor kit) insulin glargine 100 unit/mL (3 50 unit (0.5 mL) subcut QPM 30 07/04/24 mL) subcutaneous pen (Lantus days #18 mL Solostar U-100 Insulin) pen needle, diabetic 32 gauge x #200 ea 07/04/24/32 (BD Lora 2nd Gen Pen Needle) insulin lispro 100 unit/mL 6 unit (0.06 mL) subcut TID 30 07/05/24 subcutaneous pen days #6 mL metoclopramide HCl 10 mg tablet 10 mg PO Q6H PRN nausea and 08/24/24 (Reglan) vomiting #30 tabs ondansetron 4 mg disintegrating 4 mg PO Q8H PRN nausea and 08/24/24 tablet vomiting #20 tabs Allergies Allergy/AdvReac Type Severity Reaction Status Date / Time acetaminophen Allergy Hives Verified 08/24/24 19:56 amoxicillin Allergy Anaphylaxis Verified 08/24/24 19:56 codeine Allergy Anaphylaxis Verified 08/24/24 19:56 Penicillins Allergy Anaphylaxis Verified 08/24/24 19:56 Review of Systems 2 Review of Systems: Constitutional : No Weight loss, No Fever, No Chills ENT/Mouth : No sore throat, No Rhinorrhea Eyes: No Swelling, No Redness Cardiovascular : No Chest Pain, No SOB, NoEdema Respiratory : No Cough, No Sputum, No Wheezing Gastrointestinal : Positive Nausea, Positive Vomiting, no Diarrhea, no abdominal Pain, No Hematochezia, No Melena Genitourinary : No Dysuria, No Urinary Frequency, No Hematuria, No Urgency Musculoskeletal : No joint pain, No Myalgias, No Joint Swelling Skin : No Skin Lesions, No rash Neuro : No Weakness, No Numbness, No Dizziness, No Headache All other systems reviewed and are negative. Gastrointestinal: Gastrointestinal: Reports nausea PMFSH Past Medical History Attestation statement: The following information was validated with the patient. Source: old records reviewed Medical History Hypertension Surgical History No pertinent past surgical history Social History Social History Alcohol intake: never Smoked in Last 30 Days: No Use of substances other than those prescribed or required for medical reasons: No Substance Use Type: Marijuana Advance Directives: No Advance Directives Information Provided: No Patient : No Physical Exam 2 Vital Signs: Vital Signs: Last Vital Signs Temp 98.0 F 08/24/24 21:54 Pulse 95 08/24/24 21:54 Resp 16 08/24/24 21:54 BP 147/102 H 08/24/24 21:54 Pulse Ox 100 08/24/24 21:54 O2 Del Method Room Air 08/24/24 21:54 BMI result Body Mass Index 42.4 Appearance: Alert. Oriented X3. No acute distress. Eyes: Pupils equal, round and reactive to light. ENT: Pharynx normal. Neck: Normal inspection. Neck supple. CVS: Normal heart rate and rhythm. Pulses normal. Respiratory: No respiratory distress. Breath sounds normal. Abdomen: Soft and nontender. Skin: Skin warm and dry. Normal skin color. Normal skin turgor. Extremities: No lower extremity edema. No calf ttp Neuro: Oriented X 3. No motor deficit. No sensory deficit. Course Course Course Narrative: This is a Rapid Medical Examination (RME) performed by Shiv Tyler PA-C in triage. Full HPI, ROS, assessment and treatment plan per primary provider in the Main ED. 23 yo female with history of DM2 on insulin and metform presents to the ER for evaluation of N/V/D for the last 3 days. reports upset stomach but no severe abd pain. poc 334 1 hour ago, gave herself 7 units. due for her period 3 weeks ago but her cycles have been irregular. Plan: labs and viral swab Medications Administered Discontinued Medications Generic Name Dose Route Start Last Admin Trade Name Freq PRN Reason Stop Dose Admin Diphenhydramine HCl 25 mg 08/24/24 22:22 08/24/24 22:28 Diphenhydramine Hcl 50 Mg/Ml Vial IVPUSH 08/24/24 22:23 25 mg ONCE ONE Administration Sodium Chloride 1,000 mls @ 999 mls/hr 08/24/24 20:00 08/24/24 21:14 Ns IVCONT 08/24/24 21:00 Not Given .Q1H1M TOLU Lactated Ringer's 1,000 mls @ 999 mls/hr 08/24/24 20:32 08/24/24 22:20 Lr IV 08/24/24 21:32 Infused .Q1H1M ONE Infusion Metoclopramide HCl 10 mg 08/24/24 22:22 08/24/24 22:32 Metoclopramide Hcl 10 Mg/2 Ml Vial IVPUSH 08/24/24 22:23 10 mg ONCE ONE Administration Ondansetron HCl 4 mg 08/24/24 19:56 08/24/24 21:16 Ondansetron Hcl 4 Mg/2 Ml Vial IVPUSH 08/24/24 19:57 4 mg ONCE ONE Administration Medical Decision Making Medical Decision Making [facility] Narrative: 23 yo female with PMH of IDDM, HTN who reports n/v x 3 days no abdominal pain resolved diarrhea her sugars have been high at this time she looks well on exam low susp for DKA will hydrate x 2L, zofran, UA and labs, she has no abdominal pain and diarrhea is resolved doubt infection or surgical pathology Differential Diagnosis Differential Diagnoses: The differential diagnosis associated with the presentation includes dehydration, , viral syndrome, DKA Admission/Observation Consideration of admission/observation: Escalation of care including admission/observation considered feels better, tolerating PO stable for DC did well with reglan Lab Data [facility] Lab Attestation statement: I reviewed the patient's lab results. chronic leukocytosis 08/24/24 20:08 08/24/24 20:08 Labs: Lab Results 08/24/24 Range/Units 20:08 WBC 15.2 H (4.8-10.8) X10*3/uL RBC 4.85 (4.20-5.50) X10*6/uL Hgb 14.3 (12.0-16.0) g/dl Hct 40.6 (37.0-47.0) % MCV 83.7 (80.0-98.0) fL MCH 29.5 (27.0-33.0) pg MCHC 35.2 H (31.0-35.0) g/dl RDW 12.0 (11.0-16.0) % Plt Count 353 (160-400) X10*3/uL MPV 9.6 (9.4-12.3) fL Immature Gran % (Auto) 0.4 (0.0-0.4) % Neut % (Auto) 67.9 (45-73) % Lymph % (Auto) 20.9 (20-40) % [place] % (Auto) 7.3 (2-11) % Eos % (Auto) 2.8 (0-4) % Baso % (Auto) 0.7 (0-2) % Lymph # (Auto) 3.2 (1.2-4.9) X10*3/uL [place] # (Auto) 1.1 (0.1-1.2) X10*3/uL Eos # (Auto) 0.4 (0.0-0.4) X10*3/uL Baso # (Auto) 0.1 (0.0-0.2) X10*3/uL Abs Immat Gran (auto) 0.06 H (0.00-0.03) X10*3/uL Absolute Neuts (auto) 10.3 H (2.0-8.3) x10*3/uL Absolute Nucleated RBC 0.000 (0.0-0.012) X10*3/uL Nucleated RBC % (auto) 0.0 (0.0-0.2) /100WBC Sodium 140 (135-145) mmol/L Potassium 3.5 (3.3-5.1) mmol/L Chloride 106 (96-108) mmol/L Carbon Dioxide 25 (22-29) mmol/L Anion Gap 13 (12-20) BUN 13 (9-16) mg/dL Creatinine 0.83 (0.5-1.4) mg/dL Estim Creat Clear Calc 106.5 Estimated GFR > 60 Random Glucose 301 H (60-115) mg/dL Calcium 9.0 (8.4-10.2) mg/dL Magnesium 1.9 (1.6-2.6) mg/dL Total Bilirubin 1.2 H (0.0-1.0) mg/dL Direct Bilirubin 0.3 (0.0-0.5) mg/dL AST 22 (5-31) U/L ALT 18 (0-31) U/L Alkaline Phosphatase 79 (39-117) U/L Total Protein 7.7 (6.5-8.0) g/dL Albumin 3.9 (3.5-5.0) g/dL Lipase 16 (8-78) U/L Beta HCG, Quant < 2 mIU/mL Urine Color Yellow Urine Appearance Clear Urine pH 5.5 (5.0-9.0) Ur Specific [place] >= 1.030 H (1.005-1.025) Urine Protein Negative (Neg-Trace) mg/dL Urine Glucose (UA) >=1000 H (Negative) mg/dL Urine Ketones Negative (Negative) mg/dL Urine Blood Negative (Negative) Urine Nitrite Negative (Negative) Ur Leukocyte Esterase Negative (Negative) Urine RBC 0-2 (0-2) /HPF Urine WBC 0-5 (0-5) /HPF Ur Squamous Epith Cells 3-5 (0-2) /HPF Urine Bacteria None Seen (None Seen) Hyaline Casts 0-2 (0-2) /LPF Influenza Type A (PCR) NEGATIVE (Negative) Influenza Type B (PCR) NEGATIVE (Negative) RSV RNA Qual (PCR) NEGATIVE (Negative) SARS-CoV-2 RNA (RT-PCR) NEGATIVE (Negative) Independent Historian Clinical information obtained from an independent historian. History obtained from or confirmed by: Friend External Record Review External record reviewed: Outpatient record Prescription Management I considered prescription management with: Other Discharge Plan Discharge Clinical Impression: Nausea & vomiting Qualifiers: Vomiting type: unspecified Qualified Code(s): R11.2 - Nausea with vomiting, unspecified Patient Disposition: Home, Self-Care Instructions: Acute Nausea and Vomiting (ED) Additional Instructions: labs reassuring urine no infection negative blood test stay hydrate d and return for any worsening symptoms or concerns check blood sugars advance diet slowly as tolerated Prescriptions: New ondansetron 4 mg tablet,disintegrating 4 mg PO Q8H PRN (Reason: nausea and vomiting) Qty: 20 0RF metoclopramide HCl [Reglan] 10 mg tablet 10 mg PO Q6H PRN (Reason: nausea and vomiting) Qty: 30 0RF No Action benzonatate 100 mg capsule 100 mg PO TID PRN (Reason: cough) Qty: 20 0RF fluconazole 150 mg tablet 150 mg PO DAILY Qty: 2 0RF Rx Instructions: 1 tablet now and one in one week. You must keep your sugars under control syistscrlnwxs-JC-vshlxnyfzqv 5-10-100 mg/5 mL liquid 10 ml PO Q4H PRN (Reason: cough) Qty: 473 0RF Trulicity 0.75 mg/0.5 mL pen injector 0.75 mg subcut QWEEK 28 Days Qty: 2 2RF lisinopril 10 mg tablet 10 mg PO DAILY 30 Days Qty: 30 3RF metformin 500 mg tablet extended release 24 hr 1,000 mg PO BID 30 Days Qty: 120 3RF (DME) FreeStyle Lite Strips Strip See Rx Instructions .Route Qty: 100 11RF Rx Instructions: As directed bid (DME) lancets [Fingerstix Lancets] Misc See Rx Instructions .Route Qty: 100 6RF Rx Instructions: As directed twice daily for use with freestyle meter insulin glargine [Lantus Solostar U-100 Insulin] 100 unit/mL (3 mL) insulin pen 50 unit subcut QPM 30 Days Qty: 18 11RF (DME) pen needle, diabetic [BD Lora 2nd Gen Pen Needle] 32 gauge x 5/32 needle See Rx Instructions .Route Qty: 200 6RF Rx Instructions: qid (DME) FreeStyle Wilberto 2 Sensor Kit See Rx Instructions .ROUTE .MEDSUPPLY Qty: 2 10RF Rx Instructions: As directed every 14 days insulin lispro 100 unit/mL insulin pen 6 unit subcut TID 30 Days Qty: 6 6RF Rx Instructions: before meals Stand Alone Forms: Work/School Release Print Language: Armenian
--- NOTE | 2024-08-24 20:02 | MHC.EDTECH ---
Patient brought into triage area,labs,sars/flu/rsv,and urine obtained and sent to lab
[2024-08-24 20:13] LABS: MANUAL DIFF FLAG NO
[2024-08-24 20:15] LABS: Appearance Urine Clear; Color Urine Yellow; Glucose Urine UA >=1000 mg/dL (Negative); Leukocyte Esterase Urine Negative (Negative); Nitrite Urine Negative (Negative); PH 5.5 (5.0-9.0); Specific Gravity - Urine >= 1.030 (1.005-1.025); UMIC TRIGGER UACC YES; Urine Blood Negative (Negative); Urine Ketones Negative (Negative); Urine Protein Negative (Neg-Trace)
[2024-08-24 20:20] LABS: Bacteria Urine None Seen (None Seen); Hyaline Casts Urine 0-2 /LPF (0-2); RBC Urine 0-2 /HPF (0-2); WBC Urine 0-5 /HPF (0-5)
[2024-08-24 20:22] LABS: Basophils Absolute Auto 0.1 X10*3/uL (0.0-0.2); Basophils Percent Auto 0.7 % (0-2); Eosinophils Absolute Auto 0.4 X10*3/uL (0.0-0.4); Eosinophils Percent Auto 2.8 % (0-4); Hematocrit 40.6 % (37.0-47.0); Hemoglobin 14.3 g/dl (12.0-16.0); Imm Gran Abs Auto 0.06 X10*3/uL (0.00-0.03); Imm Gran Pct Auto 0.4 % (0.0-0.4); Lymphocytes Absolute Auto 3.2 X10*3/uL (1.2-4.9); Lymphocytes Percent Auto 20.9 % (20-40); Mean Corpuscular HGB Conc 35.2 g/dl (31.0-35.0); Mean Corpuscular Hemoglobin 29.5 pg (27.0-33.0); Mean Corpuscular Volume 83.7 fL (80.0-98.0); Mean Platelet Volume 9.6 fL (9.4-12.3); Monocytes Absolute Auto 1.1 X10*3/uL (0.1-1.2); Monocytes Percent Auto 7.3 % (2-11); Neutrophils Absolute Auto 10.3 x10*3/uL (2.0-8.3); Neutrophils Percent Auto 67.9 % (45-73); Platelet Count 353 X10*3/uL (160-400); Red Blood Count 4.85 X10*6/uL (4.20-5.50); White Blood Count 15.2 X10*3/uL (4.8-10.8)
[2024-08-24 20:37] LABS: Alanine Aminotransferase 18 U/L (0-31); Albumin Level 3.9 g/dL (3.5-5.0); Alkaline Phosphatase 79 U/L (39-117); Anion Gap 13 (12-20); Aspartate Amino Transferase 22 U/L (5-31); Bilirubin Direct 0.3 mg/dL (0.0-0.5); Bilirubin Total 1.2 mg/dL (0.0-1.0); Blood Urea Nitrogen 13 mg/dL (9-16); Carbon Dioxide 25 mmol/L (22-29); Chloride 106 mmol/L (96-108); Creatinine Clr Calc Pharmacy 106.5; Estimated Glomerular Filt Rate > 60; Glucose Random 301 mg/dL (60-115); Lipase 16 U/L (8-78); Magnesium 1.9 mg/dL (1.6-2.6); Potassium 3.5 mmol/L (3.3-5.1); Sodium 140 mmol/L (135-145); Total Protein 7.7 g/dL (6.5-8.0)
[2024-08-24 20:40] LABS: HCG Quantitative < 2 mIU/mL
[2024-08-24 20:48] VITALS: BP 121/82; PULSE 99; RESP 15; O2SAT 97
[2024-08-24 20:56] LABS: Influenza A PCR NEGATIVE (Negative); Influenza B PCR NEGATIVE (Negative); Resp Syncy Virus RNA Qual PCR NEGATIVE (Negative); SARS COV2 PCR INHOUSE NEGATIVE (Negative)
[2024-08-24] MEDS: ondansetron HCL 4 MG/2 ML VIAL IVPUSH (21:16)
[2024-08-24] MEDS: Lactated Ringers 1,000 ML 999 ML IV (21:19)
[2024-08-24 21:54] VITALS: BP 147/102; PULSE 95; RESP 16; TEMP 36.7; O2SAT 100
[2024-08-24] MEDS: diphenhydrAMINE HCL 50 MG/ML VIAL 25 MG IVPUSH (22:28)
[2024-08-24] MEDS: Metoclopramide HCl 10 MG/2 ML VIAL IVPUSH (22:32)
--- NOTE | 2024-08-24 23:40 | PC.NURSE ---
PO challenge completed. Pt is able to tolerate saltine crackers and bee ana with no N/V. Reports no pain or discomfort at this time.
[2024-08-25 00:10] VITALS: BP 138/103; PULSE 88; RESP 14; TEMP 36.4; O2SAT 98
[2024-08-25 00:11] VITALS: BP 138/103; PULSE 88; RESP 14; TEMP 36.4; O2SAT 98
== END 2024-08-25 00:12 | disposition home or self-care (01) ==
PROVIDERS: Physician Assistant; Emergency Provider Emergency Medicine; PCP Physician Assistant Medical
DX: R11.2 Nausea with vomiting, unspecified (principal); Z03.818 Encounter for observation for suspected exposure to other biological agents ruled out; E11.9 Type 2 diabetes mellitus without complications; I10 Essential (primary) hypertension; Z79.84 Long term (current) use of oral hypoglycemic drugs; Z79.85 Long-term (current) use of injectable non-insulin antidiabetic drugs; Z79.899 Other long term (current) drug therapy
CPT/HCPCS: 0241U; 80048; 80076; 81001; 83690; 83735; 84702; 85025; 96361; 96374; 96375; 99284; 99285; J1200; J2405; J2765; J7120

== ENCOUNTER 2024-09-12 18:10 | Emergency (ER) | payer OTHER, SELFPAY ==
--- NOTE | ~2024-09-12 | XR_ITS ---
CLINICAL HISTORY: Pneumonia. Couhging 1 view chest x-ray Comparison: CR/SR - XR CHEST 2V - 05/22/24 20:12 EDT Findings: The lungs are clear. Heart size is normal. No acute fracture. IMPRESSION: 1. No acute findings. This document has been electronically signed by: Anurag Young MD on 09/12/2024 20:25:23
[2024-09-12 18:34] VITALS: BP 156/106; PULSE 93; RESP 18; TEMP 36.8; O2SAT 95; BMI 43.4
--- NOTE | 2024-09-12 18:46 | ED_ITS ---
HPI - General Adult General Chief complaint: General Medical Stated complaint: Flu like symptoms Time Seen by Provider: 09/12/24 21:00 Source: patient Mode of arrival: ambulatory Limitations: no limitations History of Present Illness ED Provider: Dr. Miguelina Browne HPI narrative: patient comes to the emergency room complaining o congestion, cough, nausea, sleeping a lot. Patient denies shortness of breath, no chest pain, no vomiting or diarrhea. patient reports having history of asthma, states that her asthma has been well controlled, occasionally has asthma exacerbations. Related Data Previous Rx's ?Medication ?Instructions ?Recorded benzonatate 100 mg capsule 100 mg PO TID PRN cough #20 caps 07/08/23 fluconazole 150 mg tablet 150 mg PO DAILY #2 tabs 05/22/24 [id number] 5 10 ml PO Q4H PRN cough #473 mL 05/22/24 mg-10 mg-100 mg/5 mL oral liquid blood sugar diagnostic (FreeStyle #100 ea 05/24/24 Lite Strips) dulaglutide 0.75 mg/0.5 mL 0.75 mg (0.5 mL) subcut QWEEK 28 05/24/24 subcutaneous pen injector days #2 mL (Trulicity) lancets (Fingerstix Lancets) #100 ea 05/24/24 lisinopril 10 mg tablet 10 mg PO DAILY 30 days #30 tabs 05/24/24 metformin 500 mg tablet,extended 1,000 mg (2 x 500 mg) PO BID 30 05/24/24 release 24 hr days #120 tabs flash glucose sensor (FreeStyle #2 ea 07/04/24 Wilberto 2 Sensor kit) insulin glargine 100 unit/mL (3 50 unit (0.5 mL) subcut QPM 30 07/04/24 mL) subcutaneous pen (Lantus days #18 mL Solostar U-100 Insulin) pen needle, diabetic 32 gauge x #200 ea 07/04/24 (BD Lora 2nd Gen Pen Needle) insulin lispro 100 unit/mL 6 unit (0.06 mL) subcut TID 30 07/05/24 subcutaneous pen days #6 mL metoclopramide HCl 10 mg tablet 10 mg PO Q6H PRN nausea and 08/24/24 (Reglan) vomiting #30 tabs ondansetron 4 mg disintegrating 4 mg PO Q8H PRN nausea and 08/24/24 tablet vomiting #20 tabs benzonatate 100 mg capsule 100 mg PO BID PRN cough #12 caps 09/12/24 prednisone 50 mg tablet 50 mg PO DAILY #4 tabs 09/12/24 Allergies Allergy/AdvReac Type Severity Reaction Status Date / Time acetaminophen Allergy Hives Verified 09/12/24 18:36 amoxicillin Allergy Anaphylaxis Verified 09/12/24 18:36 codeine Allergy Anaphylaxis Verified 09/12/24 18:36 Penicillins Allergy Anaphylaxis Verified 09/12/24 18:36 Review of Systems Review of Systems: Constitutional : No Weight loss, No Fever, No Chills, No Night Sweats, No Fatigue, No Malaise ENT/Mouth : No Hearing loss, No Ear Pain Complaining of Nasal Congestion, No Sinus Pain, No Hoarseness, No sore throat, No Rhinorrhea, No Swallowing Difficulty Eyes: No Eye Pain, No Swelling, No Redness, No Foreign Body, No Discharge, No Vision Changes Cardiovascular : No Chest Pain, No SOB, No Dyspnea on Exertion, No Orthopnea, No Edema, No Palpitations Respiratory : complaining of Cough, No Sputum, No Wheezing, No Smoke Exposure, No Dyspnea Gastrointestinal : No Nausea, No Vomiting, No Diarrhea, No Constipation, No abdominal Pain, No Hematochezia, No Melena Genitourinary : no irregular bleeding, No Dysuria, No Urinary Frequency, No Hematuria, No Urinary Incontinence, No Urgency, No Flank Pain, No Urinary Flow Changes, No Hesitancy Musculoskeletal : No joint pain, No Myalgias, No Joint Swelling Skin : No Skin Lesions, No rash Neuro : No Weakness, No Numbness, No Paresthesias, No Loss of Consciousness, No Dizziness, No Headache Psych : No Anxiety/Panic, No Depression, No SI/HI/AH/VH, No Social Issues, Heme/Lymph: No Bruising, No Bleeding,No Lymphadenopathy Endocrine : No Polyuria, No Polydipsia, No Temperature Intolerance [facility] Past Medical History Medical History Hypertension Surgical History No pertinent past surgical history Social History Social History Alcohol intake: never Substance Use Type: Marijuana Advance Directives: No Advance Directives Information Provided: No Physical Exam ED Vital Signs: Vital Signs - 24 hr 09/12/24 18:34 09/13/24 00:31 09/13/24 00:45 Temperature 98.2 F 98.1 F 98.1 F Pulse Rate 93 84 84 Respiratory Rate 18 17 17 Blood Pressure 156/106 H 139/71 139/71 Pulse Oximetry 95 96 96 Oxygen Delivery Method Room Air Room Air Room Air BMI result Body Mass Index 43.4 Const Other: Appearance: Alert. Oriented X3. No acute distress. well-appearing Eyes: Pupils equal, round and reactive to light. ENT: Pharynx normal. Neck: Normal inspection. Neck supple. No lymph nodes noted. No crepitus CVS: Normal heart rate and rhythm. Pulses normal. Normal S1 and S2 Respiratory: No respiratory distress. Breath sounds normal. No Wheezing. No rales Abdomen: Soft and nontender. No rigidity. No distention. Skin: Skin warm and dry. Normal skin color. Normal skin turgor. Extremities: No lower extremity edema. No Lacerations. No Rash Neuro: Oriented X 3. No motor deficit. No sensory deficit. Moving all extremities. No slurred speech. CN 2 through 12 grossly intact Psych: calm, cooperative, normal affect Course Course Course Narrative: RME: 23-year-old female presents to ED for URI symptoms of coughing, congestion and nausea. SARs strep chest x-ray ordered. Medications Administered Discontinued Medications Generic Name Dose Route Start Last Admin Trade Name Freq PRN Reason Stop Dose Admin Benzonatate 100 mg 09/12/24 23:48 09/13/24 00:41 Benzonatate 100 Mg Capsule PO 09/12/24 23:49 100 mg ONCE ONE Administration Prednisone 50 mg 09/12/24 23:48 09/13/24 00:40 Prednisone 10 Mg Tablet PO 09/12/24 23:49 50 mg ONCE ONE Administration Medical Decision Making Medical Decision Making MDM Narrative: chest x-ray negative for any acute findings serology negative for influenza a, influenza B, RSV and COVID patient denies sore throat patient was given p.o. prednisone here in the ED. also Manjula Reynaga Lab Data Labs: Lab Results 09/12/24 09/12/24 Range/Units 18:45 19:47 Influenza Type A (PCR) NEGATIVE (Negative) Influenza Type B (PCR) NEGATIVE (Negative) RSV RNA Qual (PCR) NEGATIVE (Negative) SARS-CoV-2 RNA (RT-PCR) NEGATIVE (Negative) S. pyogenes GrpA BRENDON Negative (Negative) Discharge Plan Discharge Clinical Impression: Acute viral bronchitis Patient Disposition: Home, Self-Care Instructions: Acute Bronchitis (ED) Additional Instructions: Please follow-up with your primary care physician tomorrow. If you have any worsening or new symptoms, please return to the emergency room or call 911 Prescriptions: New benzonatate 100 mg capsule 100 mg PO BID PRN (Reason: cough) Qty: 12 0RF prednisone 50 mg tablet 50 mg PO DAILY Qty: 4 0RF No Action ondansetron 4 mg tablet,disintegrating 4 mg PO Q8H PRN (Reason: nausea and vomiting) Qty: 20 0RF metoclopramide HCl [Reglan] 10 mg tablet 10 mg PO Q6H PRN (Reason: nausea and vomiting) Qty: 30 0RF benzonatate 100 mg capsule 100 mg PO TID PRN (Reason: cough) Qty: 20 0RF fluconazole 150 mg tablet 150 mg PO DAILY Qty: 2 0RF Rx Instructions: 1 tablet now and one in one week. You must keep your sugars under control gtidzszqkhwkk-LH-rdxriyunkzr 5-10-100 mg/5 mL liquid 10 ml PO Q4H PRN (Reason: cough) Qty: 473 0RF Trulicity 0.75 mg/0.5 mL pen injector 0.75 mg subcut QWEEK 28 Days Qty: 2 2RF lisinopril 10 mg tablet 10 mg PO DAILY 30 Days Qty: 30 3RF metformin 500 mg tablet extended release 24 hr 1,000 mg PO BID 30 Days Qty: 120 3RF (DME) FreeStyle Lite Strips Strip See Rx Instructions .Route Qty: 100 11RF Rx Instructions: As directed bid (DME) lancets [Fingerstix Lancets] Misc See Rx Instructions .Route Qty: 100 6RF Rx Instructions: As directed twice daily for use with freestyle meter insulin glargine [Lantus Solostar U-100 Insulin] 100 unit/mL (3 mL) insulin pen 50 unit subcut QPM 30 Days Qty: 18 11RF (DME) pen needle, diabetic [BD Lora 2nd Gen Pen Needle] 32 gauge x 5/32 needle See Rx Instructions .Route Qty: 200 6RF Rx Instructions: qid (DME) FreeStyle Wilberto 2 Sensor Kit See Rx Instructions .ROUTE .MEDSUPPLY Qty: 2 10RF Rx Instructions: As directed every 14 days insulin lispro 100 unit/mL insulin pen 6 unit subcut TID 30 Days Qty: 6 6RF Rx Instructions: before meals Stand Alone Forms: Work/School Release Interventions: ED Discharge Assessment Last Done: 09/13/24 00:45 Discharge Date/Time: 09/13/24 00:48 Print Language: Luxembourgish
[2024-09-12 20:04] LABS: IDNOW Serial# 08D9AD1C; Strep A Nucleic Acid Negative (Negative)
[2024-09-12 20:31] LABS: Influenza A PCR NEGATIVE (Negative); Influenza B PCR NEGATIVE (Negative); Resp Syncy Virus RNA Qual PCR NEGATIVE (Negative); SARS COV2 PCR INHOUSE NEGATIVE (Negative)
[2024-09-13 00:31] VITALS: BP 139/71; PULSE 84; RESP 17; TEMP 36.7; O2SAT 96
[2024-09-13] MEDS: predniSONE 10 MG TABLET 50 MG PO (00:40)
[2024-09-13] MEDS: Benzonatate 100 MG CAPSULE PO (00:41)
[2024-09-13 00:45] VITALS: BP 139/71; PULSE 84; RESP 17; TEMP 36.7; O2SAT 96
== END 2024-09-13 00:48 | disposition home or self-care (01) ==
PROVIDERS: Physician Assistant; Emergency Provider Emergency Medicine; PCP Physician Assistant Medical
DX: J40 Bronchitis, not specified as acute or chronic (principal); R05.9 Cough, unspecified; R11.0 Nausea; Z03.818 Encounter for observation for suspected exposure to other biological agents ruled out
CPT/HCPCS: 0241U; 71045; 87651; 99282; 99283

== ENCOUNTER → 2024-09-12 18:47 | Outpatient (BNV) | payer OTHER, SELFPAY | PROVIDERS: Emergency Provider Emergency Medicine; PCP Physician Assistant Medical; Visit Provider Nuclear Medicine | DX: J18.9 Pneumonia, unspecified organism (principal) | CPT/HCPCS: 71045 ==

== ENCOUNTER 2024-09-26 23:13 | Emergency (ER) | payer OTHER, SELFPAY ==
[2024-09-26 23:18] VITALS: PULSE 84; RESP 16; TEMP 36.2; O2SAT 98; BMI 41.4
--- NOTE | 2024-09-27 00:26 | ED.GENADULT ---
HPI - General Adult General Chief complaint: Dental/Oral Stated complaint: mouth infection, fall w/ head strike Time Seen by Provider: 09/27/24 00:26 History of Present Illness ED Provider: Nicki BAI narrative: The patient is a 23-year-old female who presents with several days of worsening dental pain. She says that she has pain between her right upper wisdom teeth and her right canine. She says that this pain started 2 days ago. Additionally today she slipped and fell on ice in struck the right side of her face on the ground and this is exacerbated her pain. She had no loss of consciousness. The patient does not think she has had a fever. She feels that the right side of her face is warmer than the left side. Related Data Previous Rx's ?Medication ?Instructions ?Recorded benzonatate 100 mg capsule 100 mg PO TID PRN cough #20 caps 07/08/23 fluconazole 150 mg tablet 150 mg PO DAILY #2 tabs 05/22/24 [id number] 5 10 ml PO Q4H PRN cough #473 mL 05/22/24 mg-10 mg-100 mg/5 mL oral liquid blood sugar diagnostic (FreeStyle #100 ea 05/24/24 Lite Strips) dulaglutide 0.75 mg/0.5 mL 0.75 mg (0.5 mL) subcut QWEEK 28 05/24/24 subcutaneous pen injector days #2 mL (Trulicity) lancets (Fingerstix Lancets) #100 ea 05/24/24 lisinopril 10 mg tablet 10 mg PO DAILY 30 days #30 tabs 05/24/24 metformin 500 mg tablet,extended 1,000 mg (2 x 500 mg) PO BID 30 05/24/24 release 24 hr days #120 tabs flash glucose sensor (FreeStyle #2 ea 07/04/24 Wilberto 2 Sensor kit) insulin glargine 100 unit/mL (3 50 unit (0.5 mL) subcut QPM 30 07/04/24 mL) subcutaneous pen (Lantus days #18 mL Solostar U-100 Insulin) pen needle, diabetic 32 gauge x #200 ea 07/04/24 5/32 (BD Lora 2nd Gen Pen Needle) insulin lispro 100 unit/mL 6 unit (0.06 mL) subcut TID 30 07/05/24 subcutaneous pen days #6 mL metoclopramide HCl 10 mg tablet 10 mg PO Q6H PRN nausea and 08/24/24 (Reglan) vomiting #30 tabs ondansetron 4 mg disintegrating 4 mg PO Q8H PRN nausea and 08/24/24 tablet vomiting #20 tabs benzonatate 100 mg capsule 100 mg PO BID PRN cough #12 caps 09/12/24 prednisone 50 mg tablet 50 mg PO DAILY #4 tabs 09/12/24 clindamycin HCl 150 mg capsule 150 mg PO QID 7 days #28 caps 09/27/24 ibuprofen 400 mg tablet 400 mg PO Q6H PRN pain #14 tabs 09/27/24 Allergies Allergy/AdvReac Type Severity Reaction Status Date / Time acetaminophen Allergy Hives Verified 09/26/24 23:19 amoxicillin Allergy Anaphylaxis Verified 09/26/24 23:19 codeine Allergy Anaphylaxis Verified 09/26/24 23:19 Penicillins Allergy Anaphylaxis Verified 09/26/24 23:19 Review of Systems Review of Systems: Yes all other systems are reviewed and are negative [facility] Past Medical History Medical History Hypertension Surgical History No pertinent past surgical history Social History Social History Alcohol intake: never Substance Use Type: Marijuana Advance Directives: No Advance Directives Information Provided: Yes Do you have a plan to hurt others: No Plan Physical Exam ED Vital Signs: Vital Signs - 24 hr 09/26/24 23:18 Temperature 97.1 F Pulse Rate 84 Respiratory Rate 16 Pulse Oximetry 98 Oxygen Delivery Method Room Air BMI result Body Mass Index 41.4 Const Other: The patient is awake, alert, pleasant, cooperative. She does not appear obviously ill or in distress. HENMT Other: No obvious facial asymmetry to inspection. There is no trismus. No signs of external trauma to the head or the face. No raccoon eyes. No ovalle sign. There is no intraoral swelling. The airway is clear. She has full excursion of the temporomandibular joints. There is no intraoral drainage. She has some mild discomfort with tapping of several of her right upper teeth. Eyes General: appearance normal, both eyes and all related structures Neck Other: No appreciable adenopathy. Resp Effort & Inspection: normal respiratory effort Skin Other: Skin is dry and unremarkable. No erythema. No soft tissue swelling to the face. Neuro Other: The patient is awake and alert with a normal mental status. Cranial nerves are grossly intact. She moves her extremities normally Medical Decision Making Medical Decision Making MDM Narrative: The patient is here complaining of right upper dental pain. No obvious abnormalities on physical exam. She also says that she slipped and fell and struck the right side of her face. There is nothing on her exam or her history to suggest a likely intracranial injury or fracture of any kind. Her C-spine is clinically clear. The patient will be started on clindamycin (she is amoxicillin allergic) for possible dental pain. She says that she has a dentist and is advised to follow up. She may also follow up with her PCP. She looks quite well. She requested a work note. Lab Data Labs: Lab Results 09/27/24 Range/Units 00:48 Beta HCG, Quant < 2 mIU/mL Discharge Plan Discharge Clinical Impression: Pain, dental Patient Disposition: Home, Self-Care Instructions: Toothache (ED) Additional Instructions: You has been started on an antibiotic for your dental pain. Please take the clindamycin 4 times a day. You may use the ibuprofen prescribed as needed for discomfort. You may also use 2 extra-strength acetaminophen (Tylenol) up to 3 times per day as well. Please contact your dentist office for a follow up appointment. You may always contact your primary care doctor's office for additional advice as needed. Return to the emergency room if you feel significantly worse. Prescriptions: New clindamycin HCl 150 mg capsule 150 mg PO QID 7 Days Qty: 28 0RF ibuprofen 400 mg tablet 400 mg PO Q6H PRN (Reason: pain) Qty: 14 0RF No Action ondansetron 4 mg tablet,disintegrating 4 mg PO Q8H PRN (Reason: nausea and vomiting) Qty: 20 0RF metoclopramide HCl [Reglan] 10 mg tablet 10 mg PO Q6H PRN (Reason: nausea and vomiting) Qty: 30 0RF benzonatate 100 mg capsule 100 mg PO BID PRN (Reason: cough) Qty: 12 0RF prednisone 50 mg tablet 50 mg PO DAILY Qty: 4 0RF benzonatate 100 mg capsule 100 mg PO TID PRN (Reason: cough) Qty: 20 0RF fluconazole 150 mg tablet 150 mg PO DAILY Qty: 2 0RF Rx Instructions: 1 tablet now and one in one week. You must keep your sugars under control rnvrbuhvqzlpj-NQ-roveozyjbvj 5-10-100 mg/5 mL liquid 10 ml PO Q4H PRN (Reason: cough) Qty: 473 0RF Trulicity 0.75 mg/0.5 mL pen injector 0.75 mg subcut QWEEK 28 Days Qty: 2 2RF lisinopril 10 mg tablet 10 mg PO DAILY 30 Days Qty: 30 3RF metformin 500 mg tablet extended release 24 hr 1,000 mg PO BID 30 Days Qty: 120 3RF (DME) FreeStyle Lite Strips Strip See Rx Instructions .Route Qty: 100 11RF Rx Instructions: As directed bid (DME) lancets [Fingerstix Lancets] Misc See Rx Instructions .Route Qty: 100 6RF Rx Instructions: As directed twice daily for use with freestyle meter insulin glargine [Lantus Solostar U-100 Insulin] 100 unit/mL (3 mL) insulin pen 50 unit subcut QPM 30 Days Qty: 18 11RF (DME) pen needle, diabetic [BD Lora 2nd Gen Pen Needle] 32 gauge x 5/32 needle See Rx Instructions .Route Qty: 200 6RF Rx Instructions: qid (DME) FreeStyle Wilberto 2 Sensor Kit See Rx Instructions .ROUTE .MEDSUPPLY Qty: 2 10RF Rx Instructions: As directed every 14 days insulin lispro 100 unit/mL insulin pen 6 unit subcut TID 30 Days Qty: 6 6RF Rx Instructions: before meals Referrals: Pamela Lopez PA [Primary Care Provider] - (dental pain) Stand Alone Forms: Work/School Release Print Language: Tajik
[2024-09-27 01:12] LABS: HCG Quantitative < 2 mIU/mL
[2024-09-27] MEDS: Clindamycin HCL 150 MG CAPSULE PO (01:44)
[2024-09-27] MEDS: Ketorolac Tromethamine 30 MG/ML VIAL IM (01:44)
[2024-09-27 01:59] VITALS: BP 142/90; PULSE 83; RESP 20; TEMP 36.7; O2SAT 98
--- NOTE | 2024-09-27 02:00 | PC.NURSE ---
medicated per mar, reviewed discharge instructions with pt, pt verbalized understanding, no sign of distress upon discharge. pt ambulated with a steady gait upon discharge.
== END 2024-09-27 02:01 | disposition home or self-care (01) ==
PROVIDERS: Emergency Provider Emergency Medicine; PCP Physician Assistant Medical
DX: K08.89 Other specified disorders of teeth and supporting structures (principal); R50.9 Fever, unspecified; Z79.899 Other long term (current) drug therapy
CPT/HCPCS: 36415; 84702; 96372; 99283; 99284; J1885